=== PATIENT | female | born 1970 | race Caucasian/White ===

== ENCOUNTER 2018-08-17 18:11 | Emergency (ER) | payer OTHER ==
[2018-08-17 18:49] VITALS: TEMP 97.9; BMI 26.0
--- NOTE | 2018-08-17 19:34 | PDOC ---
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 Per the nursing computer analyst supervisor, it is unclear how it came out. Patient had normal vitals signs at [facility] (her living facility). Currently, the patient displays no symptomatic problems. Past History - Past Medical History Allergies/Adverse Reactions: Allergies Allergy/AdvReac Type Severity Reaction Status Date / Time clindamycin Allergy Mild Rash Verified 09/29/15 10:27 cherries Allergy Uncoded 09/19/15 21:58 Home Medications: Ambulatory Orders Acetaminophen [Feverall] 650 mg WI ASDIR PRN 01/11/15 Ascorbate Calcium [Vitamin C] 500 mg PO DAILY 01/11/15 Chlorhexidine Gluconate [Hibiclens For Decolonization -] 1 applic TP BID Collagenase Clostridium Hist. [Collagenase] 25,000 unit MC DAILY 01/11/15 Folic Acid/Mv,Fe,Min/Lutein [Certavite-Lutein Tablet] 1 each PEG DAILY 01/11/15 Hydrocolloid Dressing [Aquacel] 1 each TP DAILY 01/11/15 Mag Hydrox/Al Hydrox/Simeth [Antacid II-Simethicone Liq] 360 ml PEG QID Magnesium Hydrox 2400MG/30Ml [Milk Of Magnesia] 30 ml PEG DAILY 01/11/15 Silver Sulfadiaz/Foam Bandage [Allevyn Ag Dressing 4"X4"] 1 each TP DAILY Ipratropium/Albuterol Sulfate [Iprat-Albut 0.5-3(2.5) mg/3 ml] 1 unit IH Q6H PRN 01/12/15 Sennosides [Senna -] 3 tab GT BID 01/12/15 Ciprofloxacin [Cipro (Restricted To Id)] 500 mg PO BID 09/20/15 Albuterol 2.5/Ipratropium 0.5 [Duoneb -] 1 amp NEB TIDR amp 10/05/15 Amoxicillin/Potassium Clav [Augmentin 875-125 Tablet] 1 each PO BID #8 tablet Hydrocortisone 1% Cream [Hytone 1% Cream -] 1 applic TP BID tube 10/05/15 Oxygen See Protocol .ROUTE DAILY #1 10/05/15 Scopolamine Hydrobromide [Transderm-Scop -] 1 patch TD Q72H patch.td72 Cardiac Disorders: Yes (pacemaker) COPD: No CHF: No (s/p femoral artery resection) DVT: No Dementia: (SELF ABUSIVE BEHAVIOR) Diabetes: Yes (new-onset) Seizures: Yes (convulsive epilespy) - Surgical History Cardiac Surgery: Yes (femoral artery resection) Orthopedic Surgery: (left hip dislocation) - Immunization History Immunization Up to Date: Yes - Suicide/Smoking/Psychosocial Hx Smoking History: Never smoked Have you smoked in the past 12 months: No Information on smoking cessation initiated: No Hx Alcohol Use: No Drug/Substance Use Hx: No Substance Use Type: None Hx Substance Use Treatment: No *Physical Exam - Vital Signs Last Vital Signs Temp Pulse Resp BP Pulse Ox 97.9 F 92 H 18 125/82 95 08/17/18 18:11 08/17/18 18:11 08/17/18 18:11 08/17/18 18:11 08/17/18 18:11 Moderate Sedation - Procedure Monitoring Vital Signs: Procedure Monitoring Vital Signs Temperature 97.9 F 08/17/18 18:11 Pulse Rate 92 H 08/17/18 18:11 Respiratory Rate 18 08/17/18 18:11 Blood Pressure 125/82 08/17/18 18:11 O2 Sat by Pulse Oximetry (%) 95 08/17/18 18:11 *DC/Admit/Observation/Transfer Diagnosis at time of Disposition: Gastrostomy tube in place - Discharge Dispostion Disposition: HOME Decision to Admit order: No - Referrals - Patient Instructions Printed Discharge Instructions: DI for Gastrostomy: Permanent and Temporary Additional Instructions: you were seen in the emergency department for the evaluation of your g-tube placement. it was successfully placed and xray imaging confirmed dye was present in the stomach. please use g-tube care when handling the tube and have her follow up with her primary medical doctor within 48 hours after discharge. please return to the emergency department if it falls out, obstructed, or unable to tolerate. thank you. - Post Discharge Activity
--- NOTE | 2018-08-17 20:32 | PDOC ---
Attending Attestation - Resident Resident Name: Aryan Canales - ED Attending Attestation I have performed the following: I have examined & evaluated the patient, The case was reviewed & discussed with the resident, I agree w/resident's findings & plan - HPI HPI: 08/17/18 20:36 Zohrazak 47 YOF from [facility] with hx of MR, DM, self abusive d/o, quadriplegia, scoliosis, , left hip dislocation, convulsive epilepsy (not on AED ), infantile cerebral palsy, G tube dependent p/w G tube displacement this evening at 530pm. No abdominal sx, no emesis, no respiratory distress history presented from [facility]/aid at bedside. Allergies: Clindamycin, cherries Past surgical history: None reported. Social history: Resident at [facility]. - Physicial Exam PE: 08/17/18 20:36 PE as documented, contracted, NAD. Abdomen soft NT, stoma in RUQ intact, scar tissue palpated. Nonverbal. CUENCA x4. WWP. - Medical Decision Making 08/17/18 20:37 hpi as documented. VS wnll. no labs indicated. G tube 18 solomon islander replaced, no complications, flushed, patent. balloon inflated 10cc saline gastroview confirmed patency on AXR. abdomen soft, NTND. Pt to be discharged in stable condition back to [place]
[2018-08-17 22:58] VITALS: BP 117/89; PULSE 83
== END 2018-08-17 22:58 | disposition home or self-care (01) ==
LOC: JER 18:11
PROC: 0D20XUZ Change Feeding Device in Upper Intestinal Tract, External Approach (ICD-10-PCS; principal; 2018-08-17)
DX: Z43.1 Encounter for attention to gastrostomy (principal); G40.909 Epilepsy, unspecified, not intractable, without status epilepticus; F78 Other intellectual disabilities; G80.8 Other cerebral palsy; Z91.5 Personal history of self-harm; Z95.0 Presence of cardiac pacemaker; M41.80 Other forms of scoliosis, site unspecified
CPT/HCPCS: 74018-TC-FY; 99282-25

== ENCOUNTER 2019-09-24 20:18 | Inpatient (IN) | payer OTHER ==
--- NOTE | 2019-09-24 21:01 | PDOC ---
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 The senior living report states that the patient had an oxygen saturation of 90% on RA and they sent here here for an x-ray to make sure she does not have an infiltrate and a pneumonia. PCP: Miguel Devine PSH: CSF shunt, Hip sx, femoral resection Allergies: Clindamycin, cherries Social Hx: [facility] resident Past History - Past Medical History Allergies/Adverse Reactions: Allergies Allergy/AdvReac Type Severity Reaction Status Date / Time clindamycin Allergy Mild Rash Verified 09/29/15 10:27 cherries Allergy Uncoded 09/19/15 21:58 Home Medications: Ambulatory Orders Acetaminophen [Feverall] 650 mg CO ASDIR PRN 01/11/15 Ascorbate Calcium [Vitamin C] 500 mg PO DAILY 01/11/15 Chlorhexidine Gluconate [Hibiclens For Decolonization -] 1 applic TP BID Collagenase Clostridium Hist. [Collagenase] 25,000 unit MC DAILY 01/11/15 Folic Acid/Mv,Fe,Min/Lutein [Certavite-Lutein Tablet] 1 each PEG DAILY 01/11/15 Hydrocolloid Dressing [Aquacel] 1 each TP DAILY 01/11/15 Mag Hydrox/Al Hydrox/Simeth [Antacid II-Simethicone Liq] 360 ml PEG QID Magnesium Hydrox 2400MG/30Ml [Milk Of Magnesia] 30 ml PEG DAILY 01/11/15 Silver Sulfadiaz/Foam Bandage [Allevyn Ag Dressing 4"X4"] 1 each TP DAILY Ipratropium/Albuterol Sulfate [Iprat-Albut 0.5-3(2.5) mg/3 ml] 1 unit IH Q6H PRN 01/12/15 Sennosides [Senna -] 3 tab GT BID 01/12/15 Ciprofloxacin [Cipro (Restricted To Id)] 500 mg PO BID 09/20/15 Albuterol 2.5/Ipratropium 0.5 [Duoneb -] 1 amp NEB TIDR amp 10/05/15 Amoxicillin/Potassium Clav [Augmentin 875-125 Tablet] 1 each PO BID #8 tablet Hydrocortisone 1% Cream [Hytone 1% Cream -] 1 applic TP BID tube 10/05/15 Oxygen See Protocol .ROUTE DAILY #1 10/05/15 Scopolamine Hydrobromide [Transderm-Scop -] 1 patch TD Q72H patch.td72 Cardiac Disorders: Yes (pacemaker) COPD: No CHF: No (s/p femoral artery resection) DVT: No Dementia: (SELF ABUSIVE BEHAVIOR) Diabetes: Yes (new-onset) Seizures: Yes (convulsive epilespy) - Surgical History Cardiac Surgery: Yes (femoral artery resection) Orthopedic Surgery: (left hip dislocation) - Immunization History Immunization Up to Date: Yes - Psycho Social/Smoking Cessation Hx Smoking History: Never smoked Have you smoked in the past 12 months: No Hx Alcohol Use: No Drug/Substance Use Hx: No Substance Use Type: None Hx Substance Use Treatment: No Review of Systems - Review of Systems Able to Perform ROS?: No (Non-verbal) *Physical Exam - Physical Exam General Appearance: Yes: Appropriately Dressed, Mild Distress, Thin. No: Nourished HEENT: positive: DOMINGO, Normal ENT Inspection Neck: positive: Supple Respiratory/Chest: positive: Crackles (right lower lobe) Cardiovascular: positive: Tachycardia Vascular Pulses: Dorsalis-Pedis (R): 2+, Doralis-Pedis (L): 2+ Gastrointestinal/Abdominal: positive: Normal Bowel Sounds, Other (G-tube in place). negative: Distended, Guarding Musculoskeletal: positive: Decreased Range of Motion Extremity: positive: Normal Capillary Refill, Pelvis Stable. negative: Normal Range of Motion Integumentary: positive: Normal Color, Dry, Warm Neurologic: positive: Respond to painful stimul ED Treatment Course - LABORATORY CBC & Chemistry Diagram: 09/24/19 21:18 09/24/19 21:18 Medical Decision Making - Medical Decision Making Hx limited bc patient cannot provide any meaning ful hx. 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 The senior living report states that the patient had an oxygen saturation of 90% on RA and they sent here here for an x-ray to make sure she does not have an infiltrate and a pneumonia. Vital Signs Temp Pulse Resp BP Pulse Ox 99.6 F 110 H 26 H 112/86 100 09/24/19 20:18 09/24/19 20:18 09/24/19 20:18 09/24/19 20:18 09/24/19 20:18 DDx IBNLT: Sepsis, PNA, electrolyte/metabolic disturbance, failure to thrive MDM: Patient feels warmto touch, is tachycardic, has right sided crackles, is hypoxic to high 80's on room air, and is very prone to PNA Plan: Sepsis workup, cxr, likely abx and admit CXR: Right lower lobe infiltrate consistent with PNA possible aspiration - Vanc/Zosyn Dispo: Admit to hospital Discharge - Discharge Information Problems reviewed: Yes Clinical Impression/Diagnosis: Pneumonia Qualifiers: Pneumonia type: due to unspecified organism Laterality: right Lung location: lower lobe of lung Qualified Code(s): J18.9 - Pneumonia, unspecified organism Condition: Stable - Admission Yes - Follow up/Referral - Patient Discharge Instructions - Post Discharge Activity
[2019-09-24] MEDS ORDERED: SODIUM CHLORIDE 1,089 ML IV ONE (21:28)
[2019-09-24] MEDS ORDERED: ACETAMINOPHEN 650 MG/20.3 ML ORAL SOLUTION (CUPS) GT ONE (21:54)
--- NOTE | 2019-09-24 21:57 | PDOC ---
Documentation entered by Jeffrey Brizuela SCRIBE, acting as scribe for Julianna Borja DO. Julianna Borja DO: This documentation has been prepared by the Gelacio guerrero Elijah, SCRIBE, under my direction and personally reviewed by me in its entirety. I confirm that the documentation accurately reflects all work, treatment, procedures, and medical decision making performed by me. 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 via EMS with coughing. History limited given patient is non-verbal but as per [place] Report patient has a cough producing cream/villela sputum and had a fever of 101 degrees. Allergies: Clindamycin PCP: Dr. Devine. - Physicial Exam PE: 09/24/19 22:05 Constitutional: +Non-Verbal Head: Normocephalic. Atraumatic Eyes: PERRL. EOMI. Conjunctivae are not pale. ENT: Mucous membranes are moist and intact. Posterior pharynx without exudates or erythema. Uvula midline. Neck: Supple. Full ROM. No lymphadenopathy. Cardiovascular: Regular rate. Regular rhythm. S1, S2 regular. Distal pulses are 2+ and symmetric. Pulmonary/Chest: +Coarse Rhonchi and Breath sounds on the Right. Abdominal: Soft and non-distended. There is no tenderness. No rebound, guarding or rigidity. No organomegaly. No palpable masses. Good bowel sounds. Back: No CVA tenderness. Musculoskeletal: +Contracted Upper and Lower Extremities. Skin: +Warm to touch. No petechiae. No purpura. - Medical Decision Making 09/24/19 21:56 a/p: 48[address] female [facility] -pt sent for eval of a fever, congestion, coughing -pt with temp 101 earlier today -pt is nonverbal, contracted extremities -coughing- +barker/cream colored sputum -hot to touch -will send labs, cultures, flu -will obtain ua -will suction mouth -xray -will most likely need admission 09/24/19 22:36 pt with R sided pna -will start abx cultures pending will need admission 09/24/19 22:56 flu neg lactate 2.2 elevated wbc pna, abx ordered pt will need admission 09/24/19 23:24 case discussed with lynette who accepts pt to service
[2019-09-24 22:21] LABS: VENOUS PC02 59.2 mmHg (38-52); VENOUS PH 7.37 (7.31-7.41)
[2019-09-24 22:23] LABS: BASO % 0.3 % (0-2.0); EOS % 0.1 % (0-4.5); HEMATOCRIT 45.4 % (32.4-45.2); HEMOGLOBIN 15.7 GM/dL (10.7-15.3); LYMPH % 6.5 % (8-40); MCH 31.5 pg (25.7-33.7); MCHC 34.6 g/dl (32.0-36.0); MEAN PLT VOLUME 8.7 fl (7.5-11.1); MONO % 7.7 % (3.8-10.2); NEUT % 85.4 % (42.8-82.8); PLATELET COUNT 309 K/MM3 (134-434); RBC 4.99 M/mm3 (3.60-5.2); RDW 12.6 % (11.6-15.6)
[2019-09-24 22:26] LABS: VENOUS PO2 < 49 mmHg (28-48)
[2019-09-24 22:37] LABS: INR 1.13 (0.83-1.09); PROTHROMBIN TIME (PATIENT) 13.4 SEC (9.7-13.0)
[2019-09-24 22:39] LABS: ACTIVATED PTT 37.6 SECONDS (25.2-36.5)
[2019-09-24] MEDS ORDERED: VANCOMYCIN 1,000 MG in DEXTROSE 5%-WATER - 250 ML IVPB ONE (22:42)
[2019-09-24] MEDS ORDERED: PIPERACILLIN/TAZOB 4.5 GM 4.5 GM in DEXTROSE 5%-WATER 100 ML IVPB ONE (22:42)
[2019-09-24] MEDS ORDERED: PIPERACILLIN/TAZOB 4.5 GM 4.5 GM/100 ML BAG IVPB ONE (22:47)
[2019-09-24] MEDS ORDERED: VANCOMYCIN 1 GRAM (PRE-DOCKED) 1,000 MG/250 ML BAG IVPB ONE (22:47)
[2019-09-24 22:54] LABS: ALBUMIN 3.9 g/dl (3.4-5.0); BILIRUBIN,TOTAL 0.4 mg/dL (0.2-1); BLOOD UREA NITROGEN 14.4 mg/dL (7-18); CALCIUM 9.2 mg/dL (8.5-10.1); CREATININE 0.4 mg/dL (0.55-1.3); POTASSIUM 4.6 mmol/L (3.5-5.1); TOT PROT 7.6 g/dl (6.4-8.2)
[2019-09-24 23:31] LABS: HYALINE CASTS 2 /lpf (0-8); URINE APPEARANCE CLEAR; URINE BACTERIA 90.8 /hpf (NEGATIVE); URINE BILIRUBIN NEGATIVE (NEGATIVE); URINE COLOR YELLOW; URINE GLUCOSE (UA) TRACE (NEGATIVE); URINE KETONE NEGATIVE (NEGATIVE); URINE LEUK ESTERASE 1+ (NEGATIVE); URINE NITRITE NEGATIVE (NEGATIVE); URINE PROTEIN NEGATIVE (NEGATIVE); URINE RBC 3 /hpf (0-4); URINE UROBILINOGEN 0.2 mg/dL (0.2-1.0); URINE WBC 10 /hpf (0-5)
[2019-09-25] MEDS ORDERED: SODIUM CHLORIDE 1,000 ML IV SCH (00:30)
[2019-09-25] MEDS: SCOPOLAMINE HYDROBROMIDE 1 PATCH PATCH.TD72 TD SCH (02:08)
--- NOTE | 2019-09-25 02:58 | HP ---
CHIEF COMPLAINT: sent from [facility] due to fever, cough, and crackles PCP: Dr. Devine HISTORY OF PRESENT ILLNESS: Danna Reyes is a 48 year old female with a past medical history of MR, cerebral palsy, hydrocephalus, quadriplegia, self-abuse, severe scoliosis, DM, pacemaker placement, CHF, convulvise epilepsy (not on AE and has not had seizure in many years) presenting from [facility] for temperature registered at 101, noted crackles in her RLL, and cough. Patient was noted to have a O2 sat at 90% on RA at the facility. Aide at the bedside stated that the symptoms has a 1-2 day duration and before the patient was in her usual state of health. Additionally, the aide noted that there is a chronic sacral ulcer. ER course was notable for: (1) HR 110, RR 26 (2) WBC 13.0 with left shift, Na 129, lactic acid 2.2, VBG 7.37, CO2 59.2, HCO3 33.7 (3) CXR questionable for patchy consolidation in the R lung Recent Travel: none as per aide PAST MEDICAL HISTORY: as above PAST SURGICAL HISTORY: CSF shunt, hip fx and repair, femoral resection, pacemaker Social History: Lives at [facility]. Allergies clindamycin Allergy (Mild, Verified 09/29/15 10:27) Rash ERYTHEMA cherries Allergy (Uncoded 09/19/15 21:58) HOME MEDICATIONS: Home Medications Medication Instructions Recorded Acetaminophen [Feverall] 650 mg CA ASDIR PRN 01/11/15 Ascorbate Calcium [Vitamin C] 500 mg PO DAILY 01/11/15 Chlorhexidine Gluconate [Hibiclens 1 applic TP BID 01/11/15 For Decolonization -] Collagenase Clostridium Hist. 25,000 unit MC DAILY 01/11/15 [Collagenase] Folic Acid/Mv,Fe,Min/Lutein 1 each PEG DAILY 01/11/15 [Certavite-Lutein Tablet] Hydrocolloid Dressing [Aquacel] 1 each TP DAILY 01/11/15 Mag Hydrox/Al Hydrox/Simeth 360 ml PEG QID 01/11/15 [Antacid II-Simethicone Liq] Magnesium Hydrox 2400MG/30Ml [Milk 30 ml PEG DAILY 01/11/15 Of Magnesia] Silver Sulfadiaz/Foam Bandage 1 each TP DAILY 05/25/15 [Allevyn Ag Dressing 4"X4"] Ipratropium/Albuterol Sulfate 1 unit IH Q6H PRN 01/12/15 [Iprat-Albut 0.5-3(2.5) mg/3 ml] Sennosides [Senna -] 3 tab GT BID 01/12/15 Ciprofloxacin [Cipro (Restricted 500 mg PO BID 09/20/15 To Id)] Albuterol 2.5/Ipratropium 0.5 1 amp NEB TIDR amp 10/05/15 [Duoneb -] Amoxicillin/Potassium Clav 1 each PO BID #8 tablet 10/05/15 [Augmentin 875-125 Tablet] Hydrocortisone 1% Cream [Hytone 1% 1 applic TP BID tube 10/05/15 Cream -] Scopolamine Hydrobromide 1 patch TD Q72H patch.td72 10/05/15 [Transderm-Scop -] Multivit-Minerals 15 ml PO HS 09/25/19 [Certavite-Antioxidant Liquid] Oxygen See Protocol .ROUTE DAILY 09/25/19 Potassium Citrate/Citric Acid 1 each PO HS 09/25/19 [Cytra-K Crystals Packet] Protein Supplement [Promod] 946 ml GT DAILY 09/25/19 REVIEW OF SYSTEMS Unable to provide ROS due to non-verbal condition. PHYSICAL EXAMINATION Vital Signs - 24 hr 09/24/19 20:18 Temperature 99.6 F Pulse Rate 110 H Respiratory 26 H Rate Blood Pressure 112/86 O2 Sat by Pulse 100 Oximetry (%) GENERAL: Awake, not alert and not oriented. Small in stature. HEAD: Macrocephalic with no acute trauma. EYES: Pupils equal, round and sluggish reaction to light. EARS, NOSE, THROAT: Dry mucous membranes. LUNGS: Poorly auscultated breath sounds, coarse. HEART: Regular rate and rhythm, normal S1 and S2. ABDOMEN: Soft, nontender, not distended, normoactive bowel sounds, no guarding, no rebound, no masses. MUSCULOSKELETAL: Contracted extremities throughout. UPPER EXTREMITIES: Contracted. 2+ pulses. LOWER EXTREMITIES: Contacted. 2+ pulses NEUROLOGICAL: Minimal to no response to painful stimuli. SKIN: Cool, dry, Stage 2 sacral wound, minimal erythema., non-draining. Laboratory Results - last 24 hr 02/05/20 02/05/20 02/05/20 21:18 21:18 21:18 WBC 13.0 H RBC 4.99 Hgb 15.7 H Hct 45.4 H MCV 91.0 MCH 31.5 MCHC 34.6 RDW 12.6 Plt Count 309 D MPV 8.7 Absolute Neuts (auto) 11.1 H Neutrophils % 85.4 H D Lymphocytes % 6.5 L D Monocytes % 7.7 Eosinophils % 0.1 D Basophils % 0.3 Nucleated RBC % 0 PT with INR 13.40 H INR 1.13 H PTT (Actin FS) 37.6 H VBG pH POC VBG pCO2 POC VBG pO2 VBG HCO3 VBG O2 Sat (Christain) VBG Base Excess Sodium 129 L Potassium 4.6 Chloride 91 L Carbon Dioxide 32 Anion Gap 6 L BUN 14.4 Creatinine 0.4 L Est GFR (CKD-EPI)AfAm 143.76 Est GFR (CKD-EPI)NonAf 124.03 Random Glucose 152 H Lactic Acid Calcium 9.2 Total Bilirubin 0.4 AST 11 L ALT 19 Alkaline Phosphatase 115 Troponin I Total Protein 7.6 Albumin 3.9 Urine Color Urine Appearance Urine pH Ur Specific [place] Urine Protein Urine Glucose (UA) Urine Ketones Urine Blood Urine Nitrite Urine Bilirubin Urine Urobilinogen Ur Leukocyte Esterase Urine WBC (Auto) Urine RBC (Auto) Urine Casts (Auto) U Epithel Cells (Auto) Urine Bacteria (Auto) Influenza A (Rapid) Influenza B (Rapid) 09/24/19 09/24/19 09/24/19 21:18 21:18 21:18 WBC RBC Hgb Hct MCV MCH MCHC RDW Plt Count MPV Absolute Neuts (auto) Neutrophils % Lymphocytes % Monocytes % Eosinophils % Basophils % Nucleated RBC % PT with INR INR PTT (Actin FS) VBG pH 7.37 POC VBG pCO2 59.2 H POC VBG pO2 < 49 H VBG HCO3 33.7 H VBG O2 Sat (Christian) 74.8 VBG Base Excess 6.6 H Sodium Potassium Chloride Carbon Dioxide Anion Gap BUN Creatinine Est GFR (CKD-EPI)AfAm Est GFR (CKD-EPI)NonAf Random Glucose Lactic Acid Calcium Total Bilirubin AST ALT Alkaline Phosphatase Troponin I < 0.02 Total Protein Albumin Urine Color Urine Appearance Urine pH Ur Specific [place] Urine Protein Urine Glucose (UA) Urine Ketones Urine Blood Urine Nitrite Urine Bilirubin Urine Urobilinogen Ur Leukocyte Esterase Urine WBC (Auto) Urine RBC (Auto) Urine Casts (Auto) U Epithel Cells (Auto) Urine Bacteria (Auto) Influenza A (Rapid) Negative Influenza B (Rapid) Negative 09/24/19 09/24/19 21:39 23:10 WBC RBC Hgb Hct MCV MCH MCHC RDW Plt Count MPV Absolute Neuts (auto) Neutrophils % Lymphocytes % Monocytes % Eosinophils % Basophils % Nucleated RBC % PT with INR INR PTT (Actin FS) VBG pH POC VBG pCO2 POC VBG pO2 VBG HCO3 VBG O2 Sat (Christian) VBG Base Excess Sodium Potassium Chloride Carbon Dioxide Anion Gap BUN Creatinine Est GFR (CKD-EPI)AfAm Est GFR (CKD-EPI)NonAf Random Glucose Lactic Acid 2.2 H* Calcium Total Bilirubin AST ALT Alkaline Phosphatase Troponin I Total Protein Albumin Urine Color Yellow Urine Appearance Clear Urine pH 8.0 Ur Specific [place] 1.012 Urine Protein Negative Urine Glucose (UA) Trace Urine Ketones Negative Urine Blood Negative Urine Nitrite Negative Urine Bilirubin Negative Urine Urobilinogen 0.2 Ur Leukocyte Esterase 1+ H Urine WBC (Auto) 10 Urine RBC (Auto) 3 Urine Casts (Auto) 2 U Epithel Cells (Auto) 2.0 Urine Bacteria (Auto) 90.8 Influenza A (Rapid) Influenza B (Rapid) EKG--> NSR, no ST segment changes, QTc 480 ASSESSMENT/PLAN: Danna Reyes is a 48 year old female with a past medical history of MR, cerebral palsy, hydrocephalus, quadriplegia, self-abuse, severe scoliosis, DM, pacemaker placement, CHF, convulvise epilepsy admitted for sepsis secondary to PNA. Sepsis secondary to PNA - CXR as above, has chronic history of PNA - WBC 13.0, HR 110, RR26 - Flu negative - Zosyn due to suspicion of possible aspiration PNA and healthcare associated PNA - lactic 2.2, continue to monitor - sputum culture - urine legionella/strep - blood cx pending - UA with minimal criteria for UTI, Ucx pending - dysphagia precautions, elevated HOB DM - BGM - ISS - A1c Sacral Wound - wound care consulted - local wound care - turning q2h Hyponatremia - likely in setting of elevated free water in tube feeds vs SIADH - serum osms/urine osms, CRE, lytes - dietary eval for adjustment of water flushes and free water in feeds, hold feeds temporarily - NS at 50cc/hr, continue to monitor and adjust as necessary - do not overcorrect by greater than 8-10MeQ/24 hours - consider nephrology consult DVT PPx - heparin 5000 units subq tid FEN - NS at 50cc/hr - continue to monitor electrolytes and replete as necessary - hold tube feedings in setting of risk of aspiration PNA and hyponatremia, normally on Jevity 1.5 420mL@40cc/hr x 3.5hrs @8AM,4PM,12AM with 3mL/hr water flush and 35mL water after each feed Dispo - admit to Med-surg Family Medical History Family History: Unable to Obtain Visit type - Emergency Visit Emergency Visit: Yes ED Registration Date: 09/24/19 Care time: The patient presented to the Emergency Department on the above date and was hospitalized for further evaluation of their emergent condition. - New Patient This patient is new to me today: Yes Date on this admission: 09/25/19 - Critical Care Critical Care patient: No
--- NOTE | 2019-09-25 05:56 | PN ---
Teaching Attending Note Name of Resident: Rasta Wnog ATTENDING PHYSICIAN STATEMENT I saw and evaluated the patient. I reviewed the resident's note and discussed the case with the resident. I agree with the resident's findings and plan as documented. 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 Suspected to possibly have aspirated.Patient was brought in by ambulance.Given Zosyn and vancomycin in the emergency room. OBJECTIVE: Last Vital Signs Temp Pulse Resp BP Pulse Ox 97.5 F L 72 20 107/75 100 09/25/19 03:37 09/25/19 03:37 09/25/19 03:37 09/25/19 03:37 09/25/19 03:37 GENERAL: Developmental delay HEENT: Normocephalic, atraumatic. PERRLA, EOMI. No conjunctival pallor. Sclera are non- icteric. Moist mucous membranes. Oropharynx is clear. NECK: Supple. Full ROM. No JVD. Carotid pulses 2+ and symmetric, without bruits. No thyromegaly. No lymphadenopathy. CARDIOVASCULAR: Regular rate and rhythm. No murmurs, rubs, or gallops. Distal pulses are 2+ and symmetric. PULMONARY: Bilateral breath sounds, coarse breath sounds bilaterally ABDOMINAL: Soft. Non-tender. Non-distended. No rebound or guarding. No organomegaly. Normoactive bowel sounds. MUSCULOSKELETAL Normal range of motion at all joints. No bony deformities or tenderness. No CVA tenderness. EXTREMITIES: No cyanosis. No clubbing. No edema. No calf tenderness. SKIN: Warm and dry. Normal capillary refill. No rashes. No jaundice. Mild sacral ulcer reported NEUROLOGICAL: Severe mental retardation, developmental delay PSYCHIATRIC: Uncooperative Abnormal Lab Results 09/24/19 09/24/19 09/24/19 21:18 21:18 21:18 WBC 13.0 H Hgb 15.7 H Hct 45.4 H Absolute Neuts (auto) 11.1 H Neutrophils % 85.4 H D Lymphocytes % 6.5 L D PT with INR 13.40 H INR 1.13 H PTT (Actin FS) 37.6 H POC VBG pCO2 POC VBG pO2 VBG HCO3 VBG Base Excess Sodium 129 L Chloride 91 L Anion Gap 6 L Creatinine 0.4 L Random Glucose 152 H Lactic Acid AST 11 L Ur Leukocyte Esterase Ur Random Creatinine Ur Random Chloride 09/24/19 09/24/19 09/24/19 21:18 21:39 23:10 WBC Hgb Hct Absolute Neuts (auto) Neutrophils % Lymphocytes % PT with INR INR PTT (Actin FS) POC VBG pCO2 59.2 H POC VBG pO2 < 49 H VBG HCO3 33.7 H VBG Base Excess 6.6 H Sodium Chloride Anion Gap Creatinine Random Glucose Lactic Acid 2.2 H* AST Ur Leukocyte Esterase 1+ H Ur Random Creatinine Ur Random Chloride 09/25/19 09/25/19 01:04 01:04 WBC Hgb Hct Absolute Neuts (auto) Neutrophils % Lymphocytes % PT with INR INR PTT (Actin FS) POC VBG pCO2 POC VBG pO2 VBG HCO3 VBG Base Excess Sodium Chloride Anion Gap Creatinine Random Glucose Lactic Acid AST Ur Leukocyte Esterase Ur Random Creatinine < 13.0 L Ur Random Chloride 57 L Imaging studies reviewedchest x-ray with a very poor quality film ASSESSMENT AND PLAN: 48-year-old woman, developmentally delayed with acute hypoxic respiratory failure suspected to be secondary to aspiration pneumonia versus community- acquired pneumonia.Appears to be septic, likely secondary to underlying pneumonia. Leukocytosis, lactic acidosis. Elevated hemoglobin suggest hemoconcentration, possibly fluid depleted. Suspect hyponatremia may be secondary to underlying pneumonia, likely SIADH. [facility] Continue with Zosyn 3.375 every 6 hours Supplemental oxygen via nasal cannula Keep n.p.o. at this time Hold tube feedings Infectious disease consultation IV fluid hydration Blood cultures pending Dietary consult for tube feeding reevaluation Urine lites, serum osmoles, urine osmoles for hyponatremia work-up Heparin subcutaneously for DVT prophylaxis
[2019-09-25] MEDS ORDERED: HEPARIN NA (PORCINE) 5,000 UNITS/ML 1ML VIAL ONE ×2 (05:57→14:14)
[2019-09-25] MEDS ORDERED: PIPERACILLIN/TAZOB 4.5 GM 4.5 GM/100 ML BAG IVPB ONE ×2 (05:57→15:02)
[2019-09-25] MEDS: HEPARIN NA (PORCINE) 5,000 UNITS/ML 1ML VIAL SQ SCH ×3 (06:22→23:00)
[2019-09-25] MEDS: PIPERACILLIN/TAZOB 4.5 GM 4.5 GM in DEXTROSE 5%-WATER 100 ML IVPB SCH ×3 (06:22→15:08)
[2019-09-25 06:48] LABS: BASO % 0.9 % (0-2.0); EOS % 2.2 % (0-4.5); HEMATOCRIT 41.4 % (32.4-45.2); HEMOGLOBIN 14.3 GM/dL (10.7-15.3); LYMPH % 26.8 % (8-40); MCH 31.9 pg (25.7-33.7); MCHC 34.5 g/dl (32.0-36.0); MEAN CELL VOLUME 92.3 fl (80-96); MEAN PLT VOLUME 8.1 fl (7.5-11.1); MONO % 12.4 % (3.8-10.2); NEUT % 57.7 % (42.8-82.8); PLATELET COUNT 240 K/MM3 (134-434); RBC 4.48 M/mm3 (3.60-5.2); RDW 12.5 % (11.6-15.6); WHITE BLOOD COUNT 5.9 K/mm3 (4.0-10.0)
[2019-09-25] MEDS: INSULIN SLIDING SCALE (NOVOLOG) 1 VIAL SQ SCH ×4 (07:44→23:04)
[2019-09-25 08:00] LABS: BLOOD UREA NITROGEN 6.7 mg/dL (7-18); CREATININE 0.3 mg/dL (0.55-1.3); MAGNESIUM 1.9 mg/dL (1.8-2.4); POTASSIUM 4.2 mmol/L (3.5-5.1)
[2019-09-25] MEDS ORDERED: PROTEIN SUPPLEMENT GT SCH (10:00)
[2019-09-25] MEDS ORDERED: SENNOSIDES 8.6MG TABLET (FP) PO SCH (10:00)
--- NOTE | 2019-09-25 12:34 | PN ---
Physical Exam: SUBJECTIVE: Patient seen and examined. nonverbal, afebrile, vs stable OBJECTIVE: Vital Signs Period Temp Pulse Resp BP Sys/Kent Pulse Ox Last 24 Hr 97.5 F-99.6 F 60-110 18-26 107-137/75-91 95-100 GENERAL: awake HEAD: Macrocephalic EYES: Pupils equal, round and sluggish reaction to light. EARS, NOSE, THROAT: Dry mucous membranes. LUNGS: decreased breath sounds, course HEART: Regular rate and rhythm, normal S1 and S2. ABDOMEN: soft, no grimacing to palpation MUSCULOSKELETAL: Contracted extremities throughout. LOWER EXTREMITIES: Contacted. 2+ pulses NEUROLOGICAL: Minimal to no response to painful stimuli. SKIN: Cool, dry, minimal erythema., non-draining. Stage 2 sacral decubitus Laboratory Results - last 24 hr 09/25/19 09/25/19 09/25/19 01:04 01:04 06:20 WBC 5.9 RBC 4.48 Hgb 14.3 Hct 41.4 MCV 92.3 MCH 31.9 MCHC 34.5 RDW 12.5 Plt Count 240 D MPV 8.1 Absolute Neuts (auto) 3.4 Neutrophils % 57.7 D Lymphocytes % 26.8 D Monocytes % 12.4 H Eosinophils % 2.2 D Basophils % 0.9 Nucleated RBC % 0 PT with INR INR PTT (Actin FS) Anticoagulation Therapy Puncture Site Patient Temperature ABG pH ABG pCO2 at Pt Temp ABG pO2 at Pt Temp ABG HCO3 ABG O2 Sat (Measured) ABG O2 Content ABG Base Excess Antonio Test VBG pH POC VBG pCO2 POC VBG pO2 VBG HCO3 VBG O2 Sat (Christian) VBG Base Excess O2 Delivery Device Oxygen Flow Rate Vent Mode Vent Rate Mechanical Rate PEEP Pressure Support Vent Sodium Potassium Chloride Carbon Dioxide Anion Gap BUN Creatinine Est GFR (CKD-EPI)AfAm Est GFR (CKD-EPI)NonAf POC Glucometer Random Glucose Hemoglobin A1c % Serum Osmolality Lactic Acid Calcium Phosphorus Magnesium Total Bilirubin AST ALT Alkaline Phosphatase Troponin I Total Protein Albumin Urine Color Urine Appearance Urine pH Ur Specific [place] Urine Protein Urine Glucose (UA) Urine Ketones Urine Blood Urine Nitrite Urine Bilirubin Urine Urobilinogen Ur Leukocyte Esterase Urine WBC (Auto) Urine RBC (Auto) Urine Casts (Auto) U Epithel Cells (Auto) Urine Bacteria (Auto) Urine Osmolality 332 Ur Random Creatinine Ur Random Sodium 41 Ur Random Potassium 49.0 Ur Random Chloride 57 L Influenza A (Rapid) Influenza B (Rapid) 09/25/19 09/25/19 09/25/19 06:20 06:20 07:36 WBC RBC Hgb Hct MCV MCH MCHC RDW Plt Count MPV Absolute Neuts (auto) Neutrophils % Lymphocytes % Monocytes % Eosinophils % Basophils % Nucleated RBC % PT with INR INR PTT (Actin FS) Anticoagulation Therapy Puncture Site Patient Temperature ABG pH ABG pCO2 at Pt Temp ABG pO2 at Pt Temp ABG HCO3 ABG O2 Sat (Measured) ABG O2 Content ABG Base Excess Antonio Test VBG pH POC VBG pCO2 POC VBG pO2 VBG HCO3 VBG O2 Sat (Christian) VBG Base Excess O2 Delivery Device Oxygen Flow Rate Vent Mode Vent Rate Mechanical Rate PEEP Pressure Support Vent Sodium 135 L Potassium 4.2 Chloride 101 Carbon Dioxide 30 Anion Gap 4 L BUN 6.7 L Creatinine 0.3 L Est GFR (CKD-EPI)AfAm 158.03 Est GFR (CKD-EPI)NonAf 136.35 POC Glucometer 89 Random Glucose 89 Hemoglobin A1c % 4.9 Serum Osmolality Lactic Acid Calcium 8.0 L Phosphorus 3.0 Magnesium 1.9 Total Bilirubin AST ALT Alkaline Phosphatase Troponin I Total Protein Albumin Urine Color Urine Appearance Urine pH Ur Specific [place] Urine Protein Urine Glucose (UA) Urine Ketones Urine Blood Urine Nitrite Urine Bilirubin Urine Urobilinogen Ur Leukocyte Esterase Urine WBC (Auto) Urine RBC (Auto) Urine Casts (Auto) U Epithel Cells (Auto) Urine Bacteria (Auto) Urine Osmolality Ur Random Creatinine Ur Random Sodium Ur Random Potassium Ur Random Chloride Influenza A (Rapid) Influenza B (Rapid) Active Medications Generic Name Dose Route Start Last Admin Trade Name Freq PRN Reason Stop Dose Admin Heparin Sodium (Porcine) 5,000 unit 09/25/19 06:00 09/25/19 06:22 Heparin - SQ 5,000 unit TID DAQUAN Administration Sodium Chloride 1,000 mls @ 50 mls/hr 09/25/19 00:30 09/25/19 02:01 Normal Saline - IV 09/26/19 00:24 50 mls/hr ASDIR DAQUAN Administration Piperacillin Sod/Tazobactam 100 mls @ 200 mls/hr 09/25/19 05:00 09/25/19 09: 28 Sod 4.5 gm/ Dextrose IVPB 09/25/19 15:29 200 mls/hr Q6H-IV DAQUAN Administration Protocol Piperacillin Sod/Tazobactam 100 mls @ 200 mls/hr 09/25/19 21:00 Sod 4.5 gm/ Dextrose IVPB Q6H-IV DAQUAN Protocol Insulin Aspart 1 vial 09/25/19 07:00 09/25/19 11:27 Novolog Vial Sliding Scale - SQ Not Given ACHS DAQUAN Protocol Multivitamins/Minerals 15 ml 09/25/19 22:00 Certavite-Antioxidant Liquid PO HS DAQUAN Scopolamine HBr 1 patch 09/25/19 01:45 09/25/19 02:08 Transderm-Scop - TD 1 patch Q72H DAQUAN Administration Senna 8.8 mg 09/25/19 22:00 Senna Oral Solution - GT HS DAQUAN ASSESSMENT/PLAN: Danna Reyes is a 48 year old female with a past medical history of MR, cerebral palsy, hydrocephalus, quadriplegia, self-abuse, severe scoliosis, DM, pacemaker placement, CHF, convulvise epilepsy admitted for sepsis secondary to PNA. #Sepsis secondary to PNA -CXR questionable for patchy consolidation in the R lung -patient with chronic history of PNA -Flu negative -IV abx: Zosyn. FU Id reccs -repeat lactic acid normal -sputum culture -urine legionella/strep -blood cx pending -fu ucx -dysphagia precautions, elevated HOB #DM - BGM - ISS - A1c #Sacral Decubitus Stage 2 - wound care consulted - local wound care - turning q2h #Hyponatremia - resolving, likely in setting of elevated free water in tube feeds vs SIADH - dietary eval for adjustment of water flushes and free water in feeds, hold feeds temporarily - NS at 50cc/hr, continue to monitor and adjust as necessary #DVT PPx - heparin 5000 units subq tid FEN - NS at 50cc/hr - continue to monitor electrolytes and replete as necessary - tube feeds held. normally on Jevity 1.5 420mL@40cc/hr x 3.5hrs @8AM,4PM,12AM with 3mL/hr water flush and 35mL water after each feed Visit type - Emergency Visit Emergency Visit: Yes ED Registration Date: 09/24/19 Care time: The patient presented to the Emergency Department on the above date and was hospitalized for further evaluation of their emergent condition. - New Patient This patient is new to me today: Yes Date on this admission: 09/25/19 - Critical Care Critical Care patient: No ATTENDING PHYSICIAN STATEMENT I saw and evaluated the patient. I reviewed the resident's note and discussed the case with the resident. I agree with the resident's findings and plan as documented. SUBJECTIVE: OBJECTIVE: ASSESSMENT AND PLAN:
--- NOTE | 2019-09-25 14:12 | CONSULT ---
- Consultation REQUESTING PROVIDER: CONSULT REQUEST: We have been asked to surgically evaluate this patient for Decubitus ulcer PCP:Nikki Castaneda HISTORY OF PRESENT ILLNESS: 48 year old female with a past medical history of MR, cerebral palsy, hydrocephalus, quadriplegia, self-abuse, severe scoliosis, DM, pacemaker placement, CHF, convulvise epilepsy (not on AE and has not had seizure in many years) presenting from [facility] for temperature registered at 101. Pt is nonverbal and unable to give any history. Home Medications Medication Instructions Recorded Acetaminophen [Feverall] 650 mg MO ASDIR PRN 01/11/15 Ascorbate Calcium [Vitamin C] 500 mg PO DAILY 01/11/15 Collagenase Clostridium Hist. 25,000 unit MC DAILY 01/11/15 [Collagenase] Folic Acid/Mv,Fe,Min/Lutein 1 each PEG DAILY 01/11/15 [Certavite-Lutein Tablet] Hydrocolloid Dressing [Aquacel] 1 each TP DAILY 01/11/15 Mag Hydrox/Al Hydrox/Simeth 360 ml PEG QID 01/11/15 [Antacid II-Simethicone Liq] Magnesium Hydrox 2400MG/30Ml [Milk 30 ml PEG DAILY 01/11/15 Of Magnesia] Silver Sulfadiaz/Foam Bandage 1 each TP DAILY 01/11/15 [Allevyn Ag Dressing 4"X4"] Ipratropium/Albuterol Sulfate 1 unit IH PRN PRN 01/12/15 [Iprat-Albut 0.5-3(2.5) mg/3 ml] Sennosides [Senna -] 3 tab GT BID 01/12/15 Hydrocortisone 1% Cream [Hytone 1% 1 applic TP BID tube 10/05/15 Cream -] Scopolamine Hydrobromide 1 patch TD Q72H patch.td72 10/05/15 [Transderm-Scop -] Multivit-Minerals 15 ml PO HS 09/25/19 [Certavite-Antioxidant Liquid] Oxygen See Protocol .ROUTE DAILY 09/25/19 Potassium Citrate/Citric Acid 1 each PO HS 09/25/19 [Cytra-K Crystals Packet] Protein Supplement [Promod] 946 ml GT DAILY 09/25/19 Allergies Allergy/AdvReac Type Severity Reaction Status Date / Time clindamycin Allergy Mild Rash Verified 09/29/15 10:27 cherries Allergy Uncoded 09/19/15 21:58 PHYSICAL EXAM: GENERAL: Awake, not alert and not oriented. Small in stature. HEAD: Macrocephalic with no acute trauma. EYES: Pupils equal, round and sluggish reaction to light. EARS, NOSE, THROAT: Dry mucous membranes. ABDOMEN: Soft, nontender, not distended, normoactive bowel sounds, no guarding, no rebound, no masses. MUSCULOSKELETAL: Contracted extremities throughout. UPPER EXTREMITIES: Contracted. LOWER EXTREMITIES: Contacted. NEUROLOGICAL: Minimal to no response to painful stimuli. SKIN: Cool, dry, Stage 1 sacral wound, minimal erythema Vital Signs Temperature 97.5 F L 09/25/19 03:37 Pulse Rate 60 09/25/19 07:30 Respiratory Rate 18 09/25/19 07:30 Blood Pressure 130/81 09/25/19 07:30 O2 Sat by Pulse Oximetry (%) 95 09/25/19 07:30 Lab Results WBC 5.9 K/mm3 (4.0-10.0) 09/25/19 06:20 RBC 4.48 M/mm3 (3.60-5.2) 09/25/19 06:20 Hgb 14.3 GM/dL (10.7-15.3) 09/25/19 06:20 Hct 41.4 % (32.4-45.2) 09/25/19 06:20 MCV 92.3 fl (80-96) 09/25/19 06:20 MCHC 34.5 g/dl (32.0-36.0) 09/25/19 06:20 RDW 12.5 % (11.6-15.6) 09/25/19 06:20 Plt Count 240 K/MM3 (134-434) D 09/25/19 06:20 Sodium 135 mmol/L (136-145) L 09/25/19 06:20 Potassium 4.2 mmol/L (3.5-5.1) 09/25/19 06:20 Chloride 101 mmol/L (98-107) 09/25/19 06:20 Carbon Dioxide 30 mmol/L (21-32) 09/25/19 06:20 Anion Gap 4 MMOL/L (8-16) L 09/25/19 06:20 BUN 6.7 mg/dL (7-18) L 09/25/19 06:20 Creatinine 0.3 mg/dL (0.55-1.3) L 09/25/19 06:20 Random Glucose 89 mg/dL (74-106) 09/25/19 06:20 Calcium 8.0 mg/dL (8.5-10.1) L 09/25/19 06:20 INR 1.13 (0.83-1.09) H 09/24/19 21:18 Problem List - Problems (1) Decubital ulcer Assessment/Plan: Plan Sacral Ulcer/DTI Plan -Reposition every two hours while in bed -Air mattress recommended -Use drawsheets and Trendelenburg when repositioning to reduce friction and shear -Manageincontinence via timely cleansing, use of appropriate incontinence disposables and use of barrier ointment to intact skin -Ensure adequate hydration/nutrition, supplementation per primary team -Ensure off-loading to all bony areas (heels, ankles, hips and tailbone) with Allevyn/Optifoam Code(s): L89.90 - PRESSURE ULCER OF UNSPECIFIED SITE, UNSPECIFIED STAGE Qualifiers: Pressure injury location: contiguous region involving back and buttock Pressure injury stage: stage 1 Laterality: unspecified laterality Qualified Code(s): L89.41 - Pressure ulcer of contiguous site of back, buttock and hip, stage 1
--- NOTE | 2019-09-25 14:27 | EKG ---
Test Reason : Blood Pressure : / mmHG Vent. Rate : 085 BPM Atrial Rate : 085 BPM P-R Int : 154 ms QRS Dur : 064 ms QT Int : 404 ms P-R-T Axes : 058 050 058 degrees QTc Int : 480 ms NORMAL SINUS RHYTHM PROLONGED QT ABNORMAL ECG WHEN COMPARED WITH ECG OF 11-JAN-2015 16:29, VENT. RATE HAS DECREASED BY 52 BPM NON-SPECIFIC CHANGE IN ST SEGMENT IN INFERIOR LEADS NON-SPECIFIC CHANGE IN ST SEGMENT IN ANTEROLATERAL LEADS NONSPECIFIC T WAVE ABNORMALITY NO LONGER EVIDENT IN INFERIOR LEADS NONSPECIFIC T WAVE ABNORMALITY NO LONGER EVIDENT IN ANTEROLATERAL LEADS Confirmed by ZACK SAUCEDO MD ([id number]) on 09/25/2019 2:26:51 PM Referred By: Confirmed By:ZACK SAUCEDO MD
--- NOTE | 2019-09-25 15:47 | PN ---
Teaching Attending Note Name of Resident: Stuart Kasper ATTENDING PHYSICIAN STATEMENT I saw and evaluated the patient. I reviewed the resident's note and discussed the case with the resident. I agree with the resident's findings and plan as documented. SUBJECTIVE: Seen and examined at bedside in ED. Patient is nonverbal with severe MR, contracted. OBJECTIVE: Vital Signs - 24 hr 09/24/19 09/24/19 09/24/19 20:18 21:04 21:28 Temperature 99.6 F Pulse Rate 110 H Pulse Rate [ Apical] Pulse Rate [ Left Radial] Respiratory 26 H Rate Blood Pressure 112/86 Blood Pressure [Left Arm] Blood Pressure [Left] O2 Sat by Pulse 100 95 95 Oximetry (%) 09/25/19 09/25/19 09/25/19 03:37 06:33 07:30 Temperature 97.5 F L Pulse Rate Pulse Rate [ 72 60 Apical] Pulse Rate [ 78 Left Radial] Respiratory 20 18 18 Rate Blood Pressure Blood Pressure 137/91 130/81 [Left Arm] Blood Pressure 107/75 [Left] O2 Sat by Pulse 100 95 95 Oximetry (%) 09/25/19 14:00 Temperature 97.6 F Pulse Rate Pulse Rate [ 65 Apical] Pulse Rate [ Left Radial] Respiratory 14 Rate Blood Pressure Blood Pressure 130/81 [Left Arm] Blood Pressure [Left] O2 Sat by Pulse 98 Oximetry (%) PE: Gen: severe MR, laying in bed, appears comfortable CVS: RRR Lungs: coarse BS bl bases anteriorly Abd: soft, +Gtube, ntnd Ext: severely contracted, no edema Neuro: severe MR, cerebral palsy, developmental delay Current Medications Heparin Sodium (Porcine) (Heparin -) 5,000 unit SQ TID DAQUAN Last Admin: 09/25/19 14:19 Dose: 5,000 unit Sodium Chloride (Normal Saline -) 1,000 mls @ 50 mls/hr IV ASDIR DAQUAN Stop: 09/26/19 00:24 Last Admin: 09/25/19 02:01 Dose: 50 mls/hr Piperacillin Sod/Tazobactam (Sod 4.5 gm/ Dextrose) 100 mls @ 200 mls/hr IVPB Q6H-IV DAQUAN; Protocol Insulin Aspart (Novolog Vial Sliding Scale -) 1 vial SQ ACHS DAQUAN; Protocol Last Admin: 09/25/19 11:27 Dose: Not Given Multivitamins/Minerals (Certavite-Antioxidant Liquid) 15 ml PO HS DAQUAN Scopolamine HBr (Transderm-Scop -) 1 patch TD Q72H DAQUAN Last Admin: 09/25/19 02:08 Dose: 1 patch Senna (Senna Oral Solution -) 8.8 mg GT HS DAQUAN Laboratory Results - last 24 hr 09/24/19 09/24/19 09/24/19 21:18 21:18 21:18 WBC 13.0 H RBC 4.99 Hgb 15.7 H Hct 45.4 H MCV 91.0 MCH 31.5 MCHC 34.6 RDW 12.6 Plt Count 309 D MPV 8.7 Absolute Neuts (auto) 11.1 H Neutrophils % 85.4 H D Lymphocytes % 6.5 L D Monocytes % 7.7 Eosinophils % 0.1 D Basophils % 0.3 Nucleated RBC % 0 PT with INR 13.40 H INR 1.13 H PTT (Actin FS) 37.6 H Anticoagulation Therapy Puncture Site Patient Temperature ABG pH ABG pCO2 at Pt Temp ABG pO2 at Pt Temp ABG HCO3 ABG O2 Sat (Measured) ABG O2 Content ABG Base Excess Antonio Test VBG pH POC VBG pCO2 POC VBG pO2 VBG HCO3 VBG O2 Sat (Christian) VBG Base Excess O2 Delivery Device Oxygen Flow Rate Vent Mode Vent Rate Mechanical Rate PEEP Pressure Support Vent Sodium 129 L Potassium 4.6 Chloride 91 L Carbon Dioxide 32 Anion Gap 6 L BUN 14.4 Creatinine 0.4 L Est GFR (CKD-EPI)AfAm 143.76 Est GFR (CKD-EPI)NonAf 124.03 POC Glucometer Random Glucose 152 H Hemoglobin A1c % Serum Osmolality Lactic Acid Calcium 9.2 Phosphorus Magnesium Total Bilirubin 0.4 AST 11 L ALT 19 Alkaline Phosphatase 115 Troponin I Total Protein 7.6 Albumin 3.9 Urine Color Urine Appearance Urine pH Ur Specific [place] Urine Protein Urine Glucose (UA) Urine Ketones Urine Blood Urine Nitrite Urine Bilirubin Urine Urobilinogen Ur Leukocyte Esterase Urine WBC (Auto) Urine RBC (Auto) Urine Casts (Auto) U Epithel Cells (Auto) Urine Bacteria (Auto) Urine Osmolality Ur Random Creatinine Ur Random Sodium Ur Random Potassium Ur Random Chloride Influenza A (Rapid) Influenza B (Rapid) 09/24/19 09/24/19 09/24/19 21:18 21:18 21:18 WBC RBC Hgb Hct MCV MCH MCHC RDW Plt Count MPV Absolute Neuts (auto) Neutrophils % Lymphocytes % Monocytes % Eosinophils % Basophils % Nucleated RBC % PT with INR INR PTT (Actin FS) Anticoagulation Therapy Puncture Site Patient Temperature ABG pH ABG pCO2 at Pt Temp ABG pO2 at Pt Temp ABG HCO3 ABG O2 Sat (Measured) ABG O2 Content ABG Base Excess Antonio Test VBG pH 7.37 POC VBG pCO2 59.2 H POC VBG pO2 < 49 H VBG HCO3 33.7 H VBG O2 Sat (Christian) 74.8 VBG Base Excess 6.6 H O2 Delivery Device Oxygen Flow Rate Vent Mode Vent Rate Mechanical Rate PEEP Pressure Support Vent Sodium Potassium Chloride Carbon Dioxide Anion Gap BUN Creatinine Est GFR (CKD-EPI)AfAm Est GFR (CKD-EPI)NonAf POC Glucometer Random Glucose Hemoglobin A1c % Serum Osmolality Lactic Acid Calcium Phosphorus Magnesium Total Bilirubin AST ALT Alkaline Phosphatase Troponin I < 0.02 Total Protein Albumin Urine Color Urine Appearance Urine pH Ur Specific [place] Urine Protein Urine Glucose (UA) Urine Ketones Urine Blood Urine Nitrite Urine Bilirubin Urine Urobilinogen Ur Leukocyte Esterase Urine WBC (Auto) Urine RBC (Auto) Urine Casts (Auto) U Epithel Cells (Auto) Urine Bacteria (Auto) Urine Osmolality Ur Random Creatinine Ur Random Sodium Ur Random Potassium Ur Random Chloride Influenza A (Rapid) Negative Influenza B (Rapid) Negative 09/24/19 09/24/19 09/25/19 21:39 23:10 01:04 WBC RBC Hgb Hct MCV MCH MCHC RDW Plt Count MPV Absolute Neuts (auto) Neutrophils % Lymphocytes % Monocytes % Eosinophils % Basophils % Nucleated RBC % PT with INR INR PTT (Actin FS) Anticoagulation Therapy Puncture Site Patient Temperature ABG pH ABG pCO2 at Pt Temp ABG pO2 at Pt Temp ABG HCO3 ABG O2 Sat (Measured) ABG O2 Content ABG Base Excess Antonio Test VBG pH POC VBG pCO2 POC VBG pO2 VBG HCO3 VBG O2 Sat (Christian) VBG Base Excess O2 Delivery Device Oxygen Flow Rate Vent Mode Vent Rate Mechanical Rate PEEP Pressure Support Vent Sodium Potassium Chloride Carbon Dioxide Anion Gap BUN Creatinine Est GFR (CKD-EPI)AfAm Est GFR (CKD-EPI)NonAf POC Glucometer Random Glucose Hemoglobin A1c % Serum Osmolality Lactic Acid 2.2 H* Calcium Phosphorus Magnesium Total Bilirubin AST ALT Alkaline Phosphatase Troponin I Total Protein Albumin Urine Color Yellow Urine Appearance Clear Urine pH 8.0 Ur Specific [place] 1.012 Urine Protein Negative Urine Glucose (UA) Trace Urine Ketones Negative Urine Blood Negative Urine Nitrite Negative Urine Bilirubin Negative Urine Urobilinogen 0.2 Ur Leukocyte Esterase 1+ H Urine WBC (Auto) 10 Urine RBC (Auto) 3 Urine Casts (Auto) 2 U Epithel Cells (Auto) 2.0 Urine Bacteria (Auto) 90.8 Urine Osmolality Ur Random Creatinine < 13.0 L Ur Random Sodium Ur Random Potassium Ur Random Chloride Influenza A (Rapid) Influenza B (Rapid) 09/25/19 09/25/19 09/25/19 01:04 01:04 06:20 WBC 5.9 RBC 4.48 Hgb 14.3 Hct 41.4 MCV 92.3 MCH 31.9 MCHC 34.5 RDW 12.5 Plt Count 240 D MPV 8.1 Absolute Neuts (auto) 3.4 Neutrophils % 57.7 D Lymphocytes % 26.8 D Monocytes % 12.4 H Eosinophils % 2.2 D Basophils % 0.9 Nucleated RBC % 0 PT with INR INR PTT (Actin FS) Anticoagulation Therapy Puncture Site Patient Temperature ABG pH ABG pCO2 at Pt Temp ABG pO2 at Pt Temp ABG HCO3 ABG O2 Sat (Measured) ABG O2 Content ABG Base Excess Antonio Test VBG pH POC VBG pCO2 POC VBG pO2 VBG HCO3 VBG O2 Sat (Christian) VBG Base Excess O2 Delivery Device Oxygen Flow Rate Vent Mode Vent Rate Mechanical Rate PEEP Pressure Support Vent Sodium Potassium Chloride Carbon Dioxide Anion Gap BUN Creatinine Est GFR (CKD-EPI)AfAm Est GFR (CKD-EPI)NonAf POC Glucometer Random Glucose Hemoglobin A1c % Serum Osmolality Lactic Acid Calcium Phosphorus Magnesium Total Bilirubin AST ALT Alkaline Phosphatase Troponin I Total Protein Albumin Urine Color Urine Appearance Urine pH Ur Specific [place] Urine Protein Urine Glucose (UA) Urine Ketones Urine Blood Urine Nitrite Urine Bilirubin Urine Urobilinogen Ur Leukocyte Esterase Urine WBC (Auto) Urine RBC (Auto) Urine Casts (Auto) U Epithel Cells (Auto) Urine Bacteria (Auto) Urine Osmolality 332 Ur Random Creatinine Ur Random Sodium 41 Ur Random Potassium 49.0 Ur Random Chloride 57 L Influenza A (Rapid) Influenza B (Rapid) 09/25/19 09/25/19 09/25/19 06:20 06:20 07:36 WBC RBC Hgb Hct MCV MCH MCHC RDW Plt Count MPV Absolute Neuts (auto) Neutrophils % Lymphocytes % Monocytes % Eosinophils % Basophils % Nucleated RBC % PT with INR INR PTT (Actin FS) Anticoagulation Therapy Puncture Site Patient Temperature ABG pH ABG pCO2 at Pt Temp ABG pO2 at Pt Temp ABG HCO3 ABG O2 Sat (Measured) ABG O2 Content ABG Base Excess Antonio Test VBG pH POC VBG pCO2 POC VBG pO2 VBG HCO3 VBG O2 Sat (Christian) VBG Base Excess O2 Delivery Device Oxygen Flow Rate Vent Mode Vent Rate Mechanical Rate PEEP Pressure Support Vent Sodium 135 L Potassium 4.2 Chloride 101 Carbon Dioxide 30 Anion Gap 4 L BUN 6.7 L Creatinine 0.3 L Est GFR (CKD-EPI)AfAm 158.03 Est GFR (CKD-EPI)NonAf 136.35 POC Glucometer 89 Random Glucose 89 Hemoglobin A1c % 4.9 Serum Osmolality Lactic Acid Calcium 8.0 L Phosphorus 3.0 Magnesium 1.9 Total Bilirubin AST ALT Alkaline Phosphatase Troponin I Total Protein Albumin Urine Color Urine Appearance Urine pH Ur Specific [place] Urine Protein Urine Glucose (UA) Urine Ketones Urine Blood Urine Nitrite Urine Bilirubin Urine Urobilinogen Ur Leukocyte Esterase Urine WBC (Auto) Urine RBC (Auto) Urine Casts (Auto) U Epithel Cells (Auto) Urine Bacteria (Auto) Urine Osmolality Ur Random Creatinine Ur Random Sodium Ur Random Potassium Ur Random Chloride Influenza A (Rapid) Influenza B (Rapid) 09/25/19 09/25/19 09/25/19 07:44 11:10 11:10 WBC RBC Hgb Hct MCV MCH MCHC RDW Plt Count MPV Absolute Neuts (auto) Neutrophils % Lymphocytes % Monocytes % Eosinophils % Basophils % Nucleated RBC % PT with INR INR PTT (Actin FS) Anticoagulation Therapy Cancelled Puncture Site Cancelled Patient Temperature Cancelled ABG pH Cancelled ABG pCO2 at Pt Temp Cancelled ABG pO2 at Pt Temp Cancelled ABG HCO3 Cancelled ABG O2 Sat (Measured) Cancelled ABG O2 Content Cancelled ABG Base Excess Cancelled Antonio Test Cancelled VBG pH POC VBG pCO2 POC VBG pO2 VBG HCO3 VBG O2 Sat (Christian) VBG Base Excess O2 Delivery Device Cancelled Oxygen Flow Rate Cancelled Vent Mode Cancelled Vent Rate Cancelled Mechanical Rate Cancelled PEEP Cancelled Pressure Support Vent Cancelled Sodium Potassium Chloride Carbon Dioxide Anion Gap BUN Creatinine Est GFR (CKD-EPI)AfAm Est GFR (CKD-EPI)NonAf POC Glucometer Random Glucose Hemoglobin A1c % Serum Osmolality 279 Lactic Acid 0.6 Calcium Phosphorus Magnesium Total Bilirubin AST ALT Alkaline Phosphatase Troponin I Total Protein Albumin Urine Color Urine Appearance Urine pH Ur Specific [place] Urine Protein Urine Glucose (UA) Urine Ketones Urine Blood Urine Nitrite Urine Bilirubin Urine Urobilinogen Ur Leukocyte Esterase Urine WBC (Auto) Urine RBC (Auto) Urine Casts (Auto) U Epithel Cells (Auto) Urine Bacteria (Auto) Urine Osmolality Ur Random Creatinine Ur Random Sodium Ur Random Potassium Ur Random Chloride Influenza A (Rapid) Influenza B (Rapid) 09/25/19 11:23 WBC RBC Hgb Hct MCV MCH MCHC RDW Plt Count MPV Absolute Neuts (auto) Neutrophils % Lymphocytes % Monocytes % Eosinophils % Basophils % Nucleated RBC % PT with INR INR PTT (Actin FS) Anticoagulation Therapy Puncture Site Patient Temperature ABG pH ABG pCO2 at Pt Temp ABG pO2 at Pt Temp ABG HCO3 ABG O2 Sat (Measured) ABG O2 Content ABG Base Excess Antonio Test VBG pH POC VBG pCO2 POC VBG pO2 VBG HCO3 VBG O2 Sat (Christian) VBG Base Excess O2 Delivery Device Oxygen Flow Rate Vent Mode Vent Rate Mechanical Rate PEEP Pressure Support Vent Sodium Potassium Chloride Carbon Dioxide Anion Gap BUN Creatinine Est GFR (CKD-EPI)AfAm Est GFR (CKD-EPI)NonAf POC Glucometer 119 Random Glucose Hemoglobin A1c % Serum Osmolality Lactic Acid Calcium Phosphorus Magnesium Total Bilirubin AST ALT Alkaline Phosphatase Troponin I Total Protein Albumin Urine Color Urine Appearance Urine pH Ur Specific [place] Urine Protein Urine Glucose (UA) Urine Ketones Urine Blood Urine Nitrite Urine Bilirubin Urine Urobilinogen Ur Leukocyte Esterase Urine WBC (Auto) Urine RBC (Auto) Urine Casts (Auto) U Epithel Cells (Auto) Urine Bacteria (Auto) Urine Osmolality Ur Random Creatinine Ur Random Sodium Ur Random Potassium Ur Random Chloride Influenza A (Rapid) Influenza B (Rapid) Assessment: 48-year-old woman, developmentally delayed admitted with acute hypoxic respiratory failure Sepsis Acute hypoxic respiratory failure Pneumonia, likely aspiration Hyponatremia Cerebral Palsy Severe MR, quadriplegia DM CHF Convulsive epilepsy hx not on meds Sacral decubitus Plan: pancultured iv abx inhaled nebs holding tube feeds speech and swallow eval urine studies pending insulin sliding scale continue with current mngmt
--- NOTE | 2019-09-25 17:35 | PN ---
Progress Note (short form) - Note Progress Note: ID consult dictated imp/reccd cannot r/o right sided infiltrate in the 48 yo female from the [facility] with cp/mr- uses oxygen prn at baseline at [place] per her aide continue zosyn for aspiration f/u cultures hopefully transition to po antiibotics soon Problem List - Problems (1) Pneumonia Code(s): J18.9 - PNEUMONIA, UNSPECIFIED ORGANISM Qualifiers: Pneumonia type: due to unspecified organism Laterality: right Lung location: lower lobe of lung Qualified Code(s): J18.9 - Pneumonia, unspecified organism (2) Cerebral palsy Code(s): G80.9 - CEREBRAL PALSY, UNSPECIFIED (3) Mental retardation Code(s): F79 - UNSPECIFIED INTELLECTUAL DISABILITIES
--- NOTE | 2019-09-25 18:37 | CONS ---
INFECTIOUS DISEASE CONSULTATION DATE OF CONSULTATION: DATE OF DICTATION: 09/25/2019 REQUESTED BY: Hospitalist service HISTORY: This is a 48-year-old woman who resides at the [facility] with a diagnosis of mental retardation, quadriplegia, severe scoliosis, seizure disorder, and cerebral palsy. She presents to the ER with hypoxia at the group home to rule out pneumonia. She had a chest x-ray done in the ER, which was felt to have a possible right lower lobe infiltrate, and she was placed on Zosyn. I am asked to evaluate her. ALLERGIES: She is allergic to CLINDAMYCIN, which gives her a rash. MEDICATIONS: Her medications at the group home include vitamin C, collagenase, folic acid, senna. Her medications include DuoNebs, Scopolamine patch, ProMod, multivitamins, senna, hydrocortisone cream, collagenase, vitamin C. PAST MEDICAL HISTORY: Extensive. Notable for mental retardation, cerebral palsy, hydrocephalus, quadriplegia, severe scoliosis, diabetes. She has a pacemaker. History of CHF, history of seizures. Has not had a seizure in many years. SURGICAL HISTORY: Notable for a CSF shunt. She has had a hip fracture and repair. She has had a femoral artery resection and a pacemaker. SOCIAL HISTORY: She lives at the [facility]. REVIEW OF SYSTEMS: Her aide is present who is not with her all the time, but apparently, she has had a mild cough for the last 1 or 2 days. There has been no vomiting. She uses oxygen p.r.n. 2 L at the [facility] as well, and she has a G-tube. PHYSICAL EXAMINATION: Vital Signs: Her temperature is 97.6. Her maximum temperature was 99.6 when she arrived, but per the history and physical, she had a temperature of 101 I suspect maybe at the [facility]. Current vitals; her pulse is 65, blood pressure 130/80, respiratory rate 14. She is saturating 98% on 2 L, and she is quite comfortable. HEENT: She is normocephalic. Her eyes are anicteric. General: She does not follow any commands. She is not in any distress. Lungs: Difficult to assess due to her scoliosis. She has diminished breath sounds. Heart: Regular rate and rhythm. Abdomen: Soft. She has a G-tube. Extremities: Without edema. DIAGNOSTIC DATA: She has a white count that on admission was 13, today is 5.9, hemoglobin 14.3, platelets are 240. BUN 6.7, creatinine 0.3. Her urinalysis had 10 white cells. Influenza screen was negative. Urinary antigens were negative. In summary, this is a 48-year-old woman from the [facility] with possible right lower lobe pneumonia. Apparently had a fever of 101 earlier at the [facility]. She appears to be improving. Would continue her on Zosyn at this time. We will adjust her dose for her weight and her renal function. Cultures have been ordered, which we can follow up as well. Further recommendations to follow. OZZY DOCKERY M.D. [id number]
[2019-09-25] MEDS ORDERED: PIPERACILLIN/TAZOB 4.5 GM 4.5 GM in DEXTROSE 5%-WATER 100 ML IVPB SCH (21:00)
[2019-09-25] MEDS ORDERED: PT OWN MED DRAWER 7, Y5N ONE (21:28)
[2019-09-25] MEDS ORDERED: MULTIVIT-MINERALS ORAL LIQUID PO SCH (22:00)
[2019-09-25] MEDS: SENNOSIDES 8.8 MG/5 ML BULK BOTTLE GT SCH (23:00)
[2019-09-26] MEDS ORDERED: PIPERACILLIN/TAZOBACTAM 3.375 GM VIAL IVPB ONE ×2 (01:37→08:41)
[2019-09-26] MEDS ORDERED: DEXTROSE 5%-WATER - 50 ML IVPB ONE ×2 (01:38→08:41)
[2019-09-26] MEDS: PIPERACILLIN/TAZOB 3.375 GM 3.375 GM in DEXTROSE 5%-WATER - 50 ML IVPB SCH ×2 (01:46→09:02)
[2019-09-26] MEDS: HEPARIN NA (PORCINE) 5,000 UNITS/ML 1ML VIAL SQ SCH ×3 (06:44→22:37)
[2019-09-26] MEDS: INSULIN SLIDING SCALE (NOVOLOG) 1 VIAL SQ SCH ×4 (06:44→22:37)
[2019-09-26 08:09] LABS: BASO % 0.5 % (0-2.0); EOS % 2.9 % (0-4.5); HEMATOCRIT 43.7 % (32.4-45.2); HEMOGLOBIN 14.6 GM/dL (10.7-15.3); LYMPH % 17.9 % (8-40); MCH 31.4 pg (25.7-33.7); MCHC 33.4 g/dl (32.0-36.0); MEAN PLT VOLUME 8.4 fl (7.5-11.1); MONO % 9.5 % (3.8-10.2); NEUT % 69.2 % (42.8-82.8); PLATELET COUNT 245 K/MM3 (134-434); RBC 4.65 M/mm3 (3.60-5.2); RDW 12.8 % (11.6-15.6); WHITE BLOOD COUNT 7.5 K/mm3 (4.0-10.0)
[2019-09-26] MEDS ORDERED: SODIUM CHLORIDE 1,000 ML IV SCH (08:30)
[2019-09-26 08:36] LABS: ALBUMIN 3.1 g/dl (3.4-5.0); BILIRUBIN,TOTAL 0.4 mg/dL (0.2-1); CALCIUM 8.6 mg/dL (8.5-10.1); CREATININE 0.3 mg/dL (0.55-1.3); POTASSIUM 3.4 mmol/L (3.5-5.1); TOT PROT 6.2 g/dl (6.4-8.2)
[2019-09-26] MEDS ORDERED: ACETAMINOPHEN 650 MG/20.3 ML ORAL SOLUTION (CUPS) PO PRN (10:47)
--- NOTE | 2019-09-26 11:51 | PN ---
Physical Exam: SUBJECTIVE: Patient seen and examined. no events overnight. OBJECTIVE: Vital Signs Period Temp Pulse Resp BP Sys/Kent Pulse Ox Last 24 Hr 96.7 F-98.6 F 59-84 14-20 90-130/55-81 98-100 GENERAL: awake, moaning HEAD: Macrocephalic EYES: Pupils equal, round and sluggish reaction to light. EARS, NOSE, THROAT: Dry mucous membranes. LUNGS: decreased breath sounds, course HEART: Regular rate and rhythm, normal S1 and S2. ABDOMEN: soft, no grimacing to palpation MUSCULOSKELETAL: Contracted extremities throughout. LOWER EXTREMITIES: Contacted. 2+ pulses NEUROLOGICAL: Minimal to no response to painful stimuli. SKIN: Cool, dry, minimal erythema., non-draining. Stage 2 sacral decubitus Laboratory Results - last 24 hr 09/25/19 09/25/19 09/25/19 11:10 11:10 17:21 WBC RBC Hgb Hct MCV MCH MCHC RDW Plt Count MPV Absolute Neuts (auto) Neutrophils % Lymphocytes % Monocytes % Eosinophils % Basophils % Nucleated RBC % Sodium Potassium Chloride Carbon Dioxide Anion Gap BUN Creatinine Est GFR (CKD-EPI)AfAm Est GFR (CKD-EPI)NonAf POC Glucometer 119 Random Glucose Serum Osmolality 279 Lactic Acid 0.6 Calcium Total Bilirubin AST ALT Alkaline Phosphatase Total Protein Albumin Influenza A (Rapid) Influenza B (Rapid) RSV Rapid 09/25/19 09/26/19 09/26/19 23:03 06:42 06:43 WBC 7.5 RBC 4.65 Hgb 14.6 Hct 43.7 MCV 94.0 MCH 31.4 MCHC 33.4 RDW 12.8 Plt Count 245 MPV 8.4 Absolute Neuts (auto) 5.2 Neutrophils % 69.2 Lymphocytes % 17.9 D Monocytes % 9.5 Eosinophils % 2.9 Basophils % 0.5 Nucleated RBC % 0 Sodium Potassium Chloride Carbon Dioxide Anion Gap BUN Creatinine Est GFR (CKD-EPI)AfAm Est GFR (CKD-EPI)NonAf POC Glucometer 78 85 Random Glucose Serum Osmolality Lactic Acid Calcium Total Bilirubin AST ALT Alkaline Phosphatase Total Protein Albumin Influenza A (Rapid) Influenza B (Rapid) RSV Rapid 09/26/19 09/26/19 09/26/19 06:43 10:13 10:20 WBC RBC Hgb Hct MCV MCH MCHC RDW Plt Count MPV Absolute Neuts (auto) Neutrophils % Lymphocytes % Monocytes % Eosinophils % Basophils % Nucleated RBC % Sodium 137 Potassium 3.4 L Chloride 101 Carbon Dioxide 31 Anion Gap 6 L BUN 4.0 L Creatinine 0.3 L Est GFR (CKD-EPI)AfAm 158.03 Est GFR (CKD-EPI)NonAf 136.35 POC Glucometer 94 Random Glucose 68 L Serum Osmolality Lactic Acid Calcium 8.6 Total Bilirubin 0.4 AST 10 L ALT 15 Alkaline Phosphatase 84 Total Protein 6.2 L Albumin 3.1 L Influenza A (Rapid) Negative Influenza B (Rapid) Negative RSV Rapid 09/26/19 10:20 WBC RBC Hgb Hct MCV MCH MCHC RDW Plt Count MPV Absolute Neuts (auto) Neutrophils % Lymphocytes % Monocytes % Eosinophils % Basophils % Nucleated RBC % Sodium Potassium Chloride Carbon Dioxide Anion Gap BUN Creatinine Est GFR (CKD-EPI)AfAm Est GFR (CKD-EPI)NonAf POC Glucometer Random Glucose Serum Osmolality Lactic Acid Calcium Total Bilirubin AST ALT Alkaline Phosphatase Total Protein Albumin Influenza A (Rapid) Influenza B (Rapid) RSV Rapid Negative Active Medications Generic Name Dose Route Start Last Admin Trade Name Freq PRN Reason Stop Dose Admin Acetaminophen 325 mg 09/26/19 11:22 Tylenol Oral Solution - GT Q6H PRN PAIN Amoxicillin/Clavulanate Potassium 875 mg 09/26/19 17:30 Augmentin 250 Mg/5 Ml Oral Suspension - GT BID@0800,1730 DAQUAN Heparin Sodium (Porcine) 5,000 unit 09/25/19 06:00 09/26/19 06:44 Heparin - SQ 5,000 unit TID DAQUAN Administration Sodium Chloride 1,000 mls @ 75 mls/hr 09/26/19 08:30 09/26/19 09:04 Normal Saline - IV 75 mls/hr ASDIR DAQUAN Administration Insulin Aspart 1 vial 09/25/19 07:00 09/26/19 10:14 Novolog Vial Sliding Scale - SQ Not Given ACHS [facility] Protocol Multivitamins/Minerals 15 ml 09/26/19 10:49 Certavite-Antioxidant Liquid GT HS DAQUAN Scopolamine HBr 1 patch 09/25/19 01:45 09/25/19 02:08 Transderm-Scop - TD 1 patch Q72H DAQUAN Administration Senna 8.8 mg 09/25/19 22:00 09/25/19 23:00 Senna Oral Solution - GT 8.8 mg HS DAQUAN Administration ASSESSMENT/PLAN: Danna Reyes is a 48 year old female with a past medical history of MR, cerebral palsy, hydrocephalus, quadriplegia, self-abuse, severe scoliosis, DM, pacemaker placement, CHF, convulvise epilepsy admitted for sepsis secondary to PNA. #Sepsis secondary to PNA -CXR questionable for patchy consolidation in the R lung -patient with chronic history of PNA -Flu negative -dc Zosyn -Start PO abx: Augmentin via G tube -hold tube feeds pending speech and swallow eval -blood cx pending -fu ucx -dysphagia precautions, elevated HOB #DM - BGM - ISS - A1c #Sacral Decubitus Stage 2 - wound care consulted - local wound care - turning q2h #Hyponatremia - resolving, likely in setting of elevated free water in tube feeds vs SIADH - dietary eval for adjustment of water flushes and free water in feeds, hold feeds temporarily - NS at 50cc/hr, continue to monitor and adjust as necessary #DVT PPx - heparin 5000 units subq tid FEN - d5/ns with K - continue to monitor electrolytes and replete as necessary - tube feeds held. normally on Jevity 1.5 420mL@40cc/hr x 3.5hrs @8AM,4PM,12AM with 3mL/hr water flush and 35mL water after each feed Visit type - Emergency Visit Emergency Visit: Yes ED Registration Date: 09/24/19 Care time: The patient presented to the Emergency Department on the above date and was hospitalized for further evaluation of their emergent condition. - New Patient This patient is new to me today: Yes Date on this admission: 09/26/19 - Critical Care Critical Care patient: No ATTENDING PHYSICIAN STATEMENT I saw and evaluated the patient. I reviewed the resident's note and discussed the case with the resident. I agree with the resident's findings and plan as documented. SUBJECTIVE: OBJECTIVE: ASSESSMENT AND PLAN:
[2019-09-26 12:34] VITALS: BMI 21.3
[2019-09-26] MEDS: AMOX TR/POTASSIUM CLAVULANATE 250 MG/5 ML BOTTLE GT SCH ×2 (13:29→18:05)
--- NOTE | 2019-09-26 14:15 | PN ---
Progress Note (short form) - Note Progress Note: resting comfortably NAD Vital Signs Period Temp Pulse Resp BP Sys/Kent Pulse Ox Last 24 Hr 96.7 F-98.6 F 59-84 18-20 90-122/55-74 100-100 cor-rrr lungs clear abd soft,n+GT ext no edema CBC, BMP 09/26/19 06:43 09/26/19 06:43 Microbiology 09/24/19 23:10 Urine - Urine - Catheterized Urine Culture - Preliminary 09/24/19 21:48 Blood - Peripheral Venous Blood Culture - Preliminary NO GROWTH OBTAINED AFTER 24 HOURS, INCUBATION TO CONTINUE FOR 4 DAYS. 09/24/19 21:48 Blood - Peripheral Venous Blood Culture - Preliminary NO GROWTH OBTAINED AFTER 24 HOURS, INCUBATION TO CONTINUE FOR 4 DAYS. 09/25/19 00:56 Urine - Urine - Catheterized Legionella Antigen - Final 09/25/19 00:56 Urine - Urine - Catheterized Streptococcus pneumoniae Antigen (M - Final a/p cannot r/o RLL infiltrate in the 48 yo female from the [facility] continue zosyn po augmentin in am please call back if needed d/w hospitalist team
--- NOTE | 2019-09-26 14:42 | PN ---
Teaching Attending Note Name of Resident: Stuart Kasper ATTENDING PHYSICIAN STATEMENT I saw and evaluated the patient. I reviewed the resident's note and discussed the case with the resident. I agree with the resident's findings and plan as documented. SUBJECTIVE: Patient seen at bedside, WBC count trending down, afebrile, will cont. IV abx for 1 more day and switch to PO in AM as per ID recommendations. Otherwise no acute changes in clinical status, DC back to [place] when appropriate. OBJECTIVE: GENERAL: The patient is awake, alert, and fully oriented, in no acute distress. HEAD: Normal with no signs of trauma. EYES: PERRL, extraocular movements intact, sclera anicteric, conjunctiva clear. No ptosis. ENT: Ears normal, nares patent, oropharynx clear without exudates, moist mucous membranes. NECK: Trachea midline, full range of motion, supple. LUNGS: Breath sounds equal, clear to auscultation bilaterally, no wheezes, no crackles, no accessory muscle use. HEART: Regular rate and rhythm, S1, S2 without murmur, rub or gallop. ABDOMEN: Soft, nontender, nondistended, normoactive bowel sounds, no guarding, no rebound, no hepatosplenomegaly, no masses. EXTREMITIES: 2+ pulses, warm, well-perfused, no edema. NEUROLOGICAL: Cranial nerves II through XII grossly intact. Normal speech, gait not observed. PSYCH: Normal mood, normal affect. SKIN: Warm, dry, normal turgor, no rashes or lesions noted ASSESSMENT AND PLAN: 48-year-old woman, developmentally delayed admitted with acute hypoxic respiratory failure Sepsis Acute hypoxic respiratory failure Pneumonia, likely aspiration Hyponatremia Cerebral Palsy Severe MR, quadriplegia DM CHF Convulsive epilepsy hx not on meds Sacral decubitus Plan: One more day of IV abx, then switch to PO Augmentin in AM and observe inhaled nebs hold tube feeds pending speech and swallow eval Monitor FS, start D5NS PRN if hypoglycemic Urine legionella/cx negative, UA showing mild UTI getting abx to cover insulin sliding scale continue with current mngmt
[2019-09-26] MEDS: D5-NS + 20 MEQ KCL - 20 MEQ/1,000 ML INFUS.BAG IV SCH (17:34)
[2019-09-26] MEDS: ACETAMINOPHEN 650 MG/20.3 ML ORAL SOLUTION (CUPS) GT PRN (18:14)
[2019-09-26] MEDS ORDERED: PT OWN MED DRAWER 7, Y5N ONE ×2 (21:40→22:40)
[2019-09-26] MEDS: MULTIVIT-MINERALS ORAL LIQUID GT SCH (22:37)
[2019-09-26] MEDS: SENNOSIDES 8.8 MG/5 ML BULK BOTTLE GT SCH (22:41)
[2019-09-27] MEDS: ACETAMINOPHEN 650 MG/20.3 ML ORAL SOLUTION (CUPS) GT PRN ×2 (04:05→12:11)
[2019-09-27] MEDS: INSULIN SLIDING SCALE (NOVOLOG) 1 VIAL SQ SCH ×4 (06:09→22:16)
[2019-09-27] MEDS ORDERED: PT OWN MED DRAWER 7, Y5N ONE ×5 (07:41→21:19)
[2019-09-27 08:25] LABS: BASO % 0.9 % (0-2.0); EOS % 1.9 % (0-4.5); HEMATOCRIT 40.2 % (32.4-45.2); HEMOGLOBIN 13.9 GM/dL (10.7-15.3); LYMPH % 15.6 % (8-40); MCH 31.8 pg (25.7-33.7); MCHC 34.7 g/dl (32.0-36.0); MEAN CELL VOLUME 91.6 fl (80-96); MEAN PLT VOLUME 8.2 fl (7.5-11.1); MONO % 9.5 % (3.8-10.2); NEUT % 72.1 % (42.8-82.8); PLATELET COUNT 232 K/MM3 (134-434); RBC 4.39 M/mm3 (3.60-5.2); RDW 12.3 % (11.6-15.6); WHITE BLOOD COUNT 6.4 K/mm3 (4.0-10.0)
[2019-09-27 08:51] LABS: ALBUMIN 3.3 g/dl (3.4-5.0); BILIRUBIN,TOTAL 0.4 mg/dL (0.2-1); CALCIUM 8.5 mg/dL (8.5-10.1); CREATININE 0.3 mg/dL (0.55-1.3); POTASSIUM 3.2 mmol/L (3.5-5.1); TOT PROT 6.5 g/dl (6.4-8.2)
[2019-09-27 09:10] LABS: BLOOD UREA NITROGEN 2.7 mg/dL (7-18)
[2019-09-27] MEDS: AMOX TR/POTASSIUM CLAVULANATE 250 MG/5 ML BOTTLE GT SCH ×3 (09:23→17:59)
[2019-09-27] MEDS: HEPARIN NA (PORCINE) 5,000 UNITS/ML 1ML VIAL SQ SCH ×2 (09:23→22:13)
[2019-09-27] MEDS ORDERED: POTASSIUM CHLORIDE ORAL LIQUID 20 MEQ/15 ML GT ONE (09:41)
--- NOTE | 2019-09-27 09:41 | PN ---
Physical Exam: SUBJECTIVE: Patient seen and examined. She appears comfortable. OBJECTIVE: Vital Signs Period Temp Pulse Resp BP Sys/Kent Pulse Ox Last 24 Hr 97.7 F-98.6 F 79-91 18-20 107-138/58-87 99-100 GENERAL: The patient is awake, alert, and in no acute distress. LUNGS: Breath sounds equal, diffuse rhonchi, no wheezes, no accessory muscle use. HEART: Regular rate and rhythm, S1, S2 without murmur, rub or gallop. ABDOMEN: Soft, nondistended, normoactive bowel sounds, no hepatosplenomegaly, no masses, G-tube in place EXTREMITIES: 2+ pulses, warm, well-perfused, no edema, contracted. Laboratory Results - last 24 hr 09/26/19 09/26/19 09/26/19 10:13 10:20 10:20 WBC RBC Hgb Hct MCV MCH MCHC RDW Plt Count MPV Absolute Neuts (auto) Neutrophils % Lymphocytes % Monocytes % Eosinophils % Basophils % Nucleated RBC % Sodium Potassium Chloride Carbon Dioxide Anion Gap BUN Creatinine Est GFR (CKD-EPI)AfAm Est GFR (CKD-EPI)NonAf POC Glucometer 94 Random Glucose Calcium Total Bilirubin AST ALT Alkaline Phosphatase Total Protein Albumin Influenza A (Rapid) Negative Influenza B (Rapid) Negative RSV Rapid Negative 09/26/19 09/26/19 09/27/19 16:56 22:35 06:08 WBC RBC Hgb Hct MCV MCH MCHC RDW Plt Count MPV Absolute Neuts (auto) Neutrophils % Lymphocytes % Monocytes % Eosinophils % Basophils % Nucleated RBC % Sodium Potassium Chloride Carbon Dioxide Anion Gap BUN Creatinine Est GFR (CKD-EPI)AfAm Est GFR (CKD-EPI)NonAf POC Glucometer 69 83 90 Random Glucose Calcium Total Bilirubin AST ALT Alkaline Phosphatase Total Protein Albumin Influenza A (Rapid) Influenza B (Rapid) RSV Rapid 09/27/19 09/27/19 07:35 07:35 WBC 6.4 RBC 4.39 Hgb 13.9 Hct 40.2 MCV 91.6 MCH 31.8 MCHC 34.7 RDW 12.3 Plt Count 232 MPV 8.2 Absolute Neuts (auto) 4.6 Neutrophils % 72.1 Lymphocytes % 15.6 Monocytes % 9.5 Eosinophils % 1.9 Basophils % 0.9 Nucleated RBC % 0 Sodium 135 L Potassium 3.2 L Chloride 97 L Carbon Dioxide 32 Anion Gap 6 L BUN 2.7 L* Creatinine 0.3 L Est GFR (CKD-EPI)AfAm 158.03 Est GFR (CKD-EPI)NonAf 136.35 POC Glucometer Random Glucose 89 Calcium 8.5 Total Bilirubin 0.4 AST 7 L ALT 16 Alkaline Phosphatase 85 Total Protein 6.5 Albumin 3.3 L Influenza A (Rapid) Influenza B (Rapid) RSV Rapid Active Medications Generic Name Dose Route Start Last Admin Trade Name Freq PRN Reason Stop Dose Admin Acetaminophen 325 mg 09/26/19 11:22 09/27/19 04:05 Tylenol Oral Solution - GT 325 mg Q6H PRN Administration PAIN Amoxicillin/Clavulanate Potassium 500 mg 09/26/19 12:30 09/26/19 18:05 Augmentin 250 Mg/5 Ml Oral Suspension - GT 10 ml TIDCM DAQUAN Administration Heparin Sodium (Porcine) 5,000 unit 09/26/19 22:00 09/26/19 22:37 Heparin - SQ 5,000 unit BID DAQUAN Administration Dextrose/Sodium Chloride 20 meq in 1,000 mls @ 42 mls/hr 09/26/19 17:15 09/26 17:34 Dextrose 5%-Normal Saline+20 Meq Kcl - IV 42 mls/hr ASDIR DAQUAN Administration Insulin Aspart 1 vial 09/25/19 07:00 09/27/19 06:09 Novolog Vial Sliding Scale - SQ Not Given ACHS DAQUAN Protocol Multivitamins/Minerals 15 ml 09/26/19 10:49 09/26/19 22:37 Certavite-Antioxidant Liquid GT 15 ml HS DAQUAN Administration Scopolamine HBr 1 patch 09/25/19 01:45 09/25/19 02:08 Transderm-Scop - TD 1 patch Q72H DAQUAN Administration Senna 8.8 mg 09/25/19 22:00 09/26/19 22:41 Senna Oral Solution - GT 8.8 mg HS DAQUAN Administration ASSESSMENT/PLAN: This is a 48 year old woman with a history of cerebral palsy, hydrocephalus, epilepsy, severe mental retardation, quadriplegia, type 2 DM, CHF, pacemaker, G- tube, scoliosis who was sent to the ED from [place] for fever and cough. 1. Sepsis (tachycardia, tachypnea, leukocytosis) secondary to aspiration pneumonia - Antibiotics changed to Augmentin via G-tube 2. Acute hypoxic respiratory failure - Continue oxygen as needed to keep saturation >90% 3. Hyponatremia - Improved 4. Hypokalemia - Replete potassium 5. Type 2 DM - Continue Novolog sliding scale 6. Cerebral palsy 7. Severe MR 8. Quadriplegia 9. History of CHF - No evidence of acute heart failure 10. Epilepsy 11. Hydrocephalus 12. History of pacemaker 13. Stage I sacral pressure ulcer - Continue wound care 14. Nutrition - Start Jevity 1.5 via G-tube 15. Disposition - Expect discharge to [place] 09/29 Visit type - Emergency Visit Emergency Visit: Yes ED Registration Date: 09/24/19 Care time: The patient presented to the Emergency Department on the above date and was hospitalized for further evaluation of their emergent condition. - New Patient This patient is new to me today: Yes Date on this admission: 09/27/19 - Critical Care Critical Care patient: No - Discharge Referral Referred to [facility] Med P.C.: No
[2019-09-27] MEDS: D5-NS + 20 MEQ KCL - 20 MEQ/1,000 ML INFUS.BAG IV SCH (17:59)
[2019-09-27] MEDS: MULTIVIT-MINERALS ORAL LIQUID GT SCH (22:12)
[2019-09-27] MEDS: SENNOSIDES 8.8 MG/5 ML BULK BOTTLE GT SCH (22:12)
[2019-09-28] MEDS: SCOPOLAMINE HYDROBROMIDE 1 PATCH PATCH.TD72 TD SCH (02:04)
[2019-09-28] MEDS: INSULIN SLIDING SCALE (NOVOLOG) 1 VIAL SQ SCH ×4 (06:53→21:24)
[2019-09-28] MEDS: AMOX TR/POTASSIUM CLAVULANATE 250 MG/5 ML BOTTLE GT SCH ×3 (09:04→17:43)
[2019-09-28] MEDS: HEPARIN NA (PORCINE) 5,000 UNITS/ML 1ML VIAL SQ SCH ×2 (09:04→21:24)
--- NOTE | 2019-09-28 09:49 | PN ---
Physical Exam: SUBJECTIVE: Patient seen and examined. She appears comfortable. OBJECTIVE: Vital Signs Period Temp Pulse Resp BP Sys/Kent Pulse Ox Last 24 Hr 97.5 F-98.4 F 69-89 18-20 96-132/63-86 95-97 GENERAL: The patient is awake, alert, and in no acute distress. LUNGS: Breath sounds equal, diffuse rhonchi, no wheezes, no accessory muscle use. HEART: Regular rate and rhythm, S1, S2 without murmur, rub or gallop. ABDOMEN: Soft, nondistended, normoactive bowel sounds, no hepatosplenomegaly, no masses, G-tube in place EXTREMITIES: 2+ pulses, warm, well-perfused, no edema, contracted. Laboratory Results - last 24 hr 09/27/19 09/27/19 09/27/19 12:15 17:57 22:15 POC Glucometer 128 122 116 09/28/19 06:52 POC Glucometer 139 Active Medications Generic Name Dose Route Start Last Admin Trade Name Freq PRN Reason Stop Dose Admin Acetaminophen 325 mg 09/26/19 11:22 09/27/19 12:11 Tylenol Oral Solution - GT 325 mg Q6H PRN Administration PAIN Amoxicillin/Clavulanate Potassium 500 mg 09/26/19 12:30 09/28/19 09:04 Augmentin 250 Mg/5 Ml Oral Suspension - GT 10 ml TIDCM DAQUAN Administration Heparin Sodium (Porcine) 5,000 unit 09/26/19 22:00 09/28/19 09:04 Heparin - SQ 5,000 unit BID DAQUAN Administration Dextrose/Sodium Chloride 20 meq in 1,000 mls @ 42 mls/hr 09/26/19 17:15 09/27 17:59 Dextrose 5%-Normal Saline+20 Meq Kcl - IV 42 mls/hr ASDIR DAQUAN Administration Insulin Aspart 1 vial 09/25/19 07:00 09/28/19 06:53 Novolog Vial Sliding Scale - SQ Not Given ACHS DAQUAN Protocol Multivitamins/Minerals 15 ml 09/26/19 10:49 09/27/19 22:12 Certavite-Antioxidant Liquid GT 15 ml HS DAQUAN Administration Scopolamine HBr 1 patch 09/25/19 01:45 09/28/19 02:04 Transderm-Scop - TD 1 patch Q72H DAQUAN Administration Senna 8.8 mg 09/25/19 22:00 09/27/19 22:12 Senna Oral Solution - GT 8.8 mg HS DAQUAN Administration ASSESSMENT/PLAN: This is a 48 year old woman with a history of cerebral palsy, hydrocephalus, epilepsy, severe mental retardation, quadriplegia, type 2 DM, CHF, pacemaker, G- tube, scoliosis who was sent to the ED from [place] for fever and cough. 1. Sepsis (tachycardia, tachypnea, leukocytosis) secondary to aspiration pneumonia - Continue Augmentin via G-tube (day 5 of antibiotics) 2. Acute hypoxic respiratory failure - Continue oxygen as needed to keep saturation >90% 3. Hyponatremia - Improved 4. Hypokalemia - Given potassium supplementation - Recheck potassium 5. Type 2 DM - Continue Novolog sliding scale 6. Cerebral palsy 7. Severe MR 8. Quadriplegia 9. History of CHF - No evidence of acute heart failure 10. Epilepsy 11. Hydrocephalus 12. History of pacemaker 13. Stage I sacral pressure ulcer - Continue wound care 14. Nutrition - Tolerating Jevity 1.5 via G-tube 15. Disposition - Expect discharge to [place] 09/29 Visit type - Emergency Visit Emergency Visit: Yes ED Registration Date: 09/24/19 Care time: The patient presented to the Emergency Department on the above date and was hospitalized for further evaluation of their emergent condition. - New Patient This patient is new to me today: No - Critical Care Critical Care patient: No - Discharge Referral Referred to [facility] Med P.C.: No
[2019-09-28 19:59] LABS: BASO % 0.6 % (0-2.0); EOS % 2.8 % (0-4.5); HEMATOCRIT 45.6 % (32.4-45.2); HEMOGLOBIN 15.4 GM/dL (10.7-15.3); LYMPH % 20.7 % (8-40); MCH 31.6 pg (25.7-33.7); MCHC 33.7 g/dl (32.0-36.0); MEAN CELL VOLUME 93.7 fl (80-96); MEAN PLT VOLUME 8.6 fl (7.5-11.1); MONO % 10.3 % (3.8-10.2); NEUT % 65.6 % (42.8-82.8); PLATELET COUNT 246 K/MM3 (134-434); RBC 4.86 M/mm3 (3.60-5.2); RDW 12.9 % (11.6-15.6); WHITE BLOOD COUNT 8.1 K/mm3 (4.0-10.0)
[2019-09-28 20:23] LABS: BLOOD UREA NITROGEN 3.9 mg/dL (7-18); CALCIUM 8.9 mg/dL (8.5-10.1); CREATININE 0.2 mg/dL (0.55-1.3); PHOSPHOROUS 2.9 mg/dL (2.5-4.9); POTASSIUM 3.9 mmol/L (3.5-5.1)
[2019-09-28] MEDS ORDERED: PT OWN MED DRAWER 7, Y5N ONE (20:51)
[2019-09-28] MEDS: MULTIVIT-MINERALS ORAL LIQUID GT SCH (21:23)
[2019-09-28] MEDS: SENNOSIDES 8.8 MG/5 ML BULK BOTTLE GT SCH (21:23)
[2019-09-29] MEDS: INSULIN SLIDING SCALE (NOVOLOG) 1 VIAL SQ SCH ×3 (08:06→17:19)
[2019-09-29 09:40] LABS: HEMATOCRIT 43.7 % (32.4-45.2); MCH 31.8 pg (25.7-33.7); MCHC 34.3 g/dl (32.0-36.0); MEAN CELL VOLUME 92.6 fl (80-96); MEAN PLT VOLUME 8.5 fl (7.5-11.1); PLATELET COUNT 225 K/MM3 (134-434); RBC 4.72 M/mm3 (3.60-5.2); RDW 12.7 % (11.6-15.6); WHITE BLOOD COUNT 6.2 K/mm3 (4.0-10.0)
[2019-09-29 10:05] LABS: BLOOD UREA NITROGEN 5.4 mg/dL (7-18); CALCIUM 9.3 mg/dL (8.5-10.1); CREATININE 0.3 mg/dL (0.55-1.3); MAGNESIUM 2.2 mg/dL (1.8-2.4); PHOSPHOROUS 3.8 mg/dL (2.5-4.9); POTASSIUM 3.8 mmol/L (3.5-5.1)
[2019-09-29] MEDS: AMOX TR/POTASSIUM CLAVULANATE 250 MG/5 ML BOTTLE GT SCH ×3 (10:21→17:22)
[2019-09-29] MEDS: HEPARIN NA (PORCINE) 5,000 UNITS/ML 1ML VIAL SQ SCH (10:21)
--- NOTE | 2019-09-29 16:16 | DS ---
Physical Exam: SUBJECTIVE: Patient seen and examined, in no obvious distress, awake, resting comfortably (non verbal at baseline). OBJECTIVE: Vital Signs Period Temp Pulse Resp BP Sys/Kent Pulse Ox Last 24 Hr 97.4 F-98.5 F 64-90 - 96-137/58-74 96 Vital Signs Temp 98.2 F 09/29/19 16:39 Pulse 90 09/29/19 16:39 Resp 18 09/29/19 16:39 BP 106/56 L 09/29/19 16:39 Pulse Ox 96 09/29/19 16:44 Intake & Output 09/28/19 09/29/19 09/29/19 23:59 11:59 23:59 Intake Total 0 200 Balance 0 200 Intake: Oral 0 Tube Feeding 100 Tube Irrigant 100 Other: Voiding Method Incontinent Incontinent # Unmeasured Voids Void 4 2 Bowel Movement No No # Bowel Movements 1 Weight Measurement Method Built in [facility] PHYSICAL EXAM GENERAL: The patient is awake, in no acute distress, contracted. HEAD: macrocephalic. ENT: moist mucous membranes. LUNGS: Breath sounds reduced globally, no wheezes, no crackles, no accessory muscle use. HEART: Regular rate and rhythm, S1, S2 ABDOMEN: Soft, PEG tube present EXTREMITIES: 2+ pulses, contracted NEUROLOGICAL:Awake, nonverbal at baseline LABS Laboratory Results - last 24 hr 09/28/19 09/28/19 09/28/19 17:42 19:16 19:16 WBC 8.1 RBC 4.86 Hgb 15.4 H Hct 45.6 H MCV 93.7 MCH 31.6 MCHC 33.7 RDW 12.9 Plt Count 246 MPV 8.6 Absolute Neuts (auto) 5.3 Neutrophils % 65.6 Lymphocytes % 20.7 D Monocytes % 10.3 H Eosinophils % 2.8 Basophils % 0.6 Nucleated RBC % 0 Sodium 136 Potassium 3.9 Chloride 98 Carbon Dioxide 33 H Anion Gap 5 L BUN 3.9 L Creatinine 0.2 L Est GFR (CKD-EPI)AfAm 180.58 Est GFR (CKD-EPI)NonAf 155.80 POC Glucometer 122 Random Glucose 98 Calcium 8.9 Phosphorus 2.9 Magnesium 2.0 09/28/19 09/29/19 09/29/19 21:07 07:09 08:55 WBC 6.2 RBC 4.72 Hgb 15.0 Hct 43.7 MCV 92.6 MCH 31.8 MCHC 34.3 RDW 12.7 Plt Count 225 MPV 8.5 Absolute Neuts (auto) Neutrophils % Lymphocytes % Monocytes % Eosinophils % Basophils % Nucleated RBC % Sodium Potassium Chloride Carbon Dioxide Anion Gap BUN Creatinine Est GFR (CKD-EPI)AfAm Est GFR (CKD-EPI)NonAf POC Glucometer 116 110 Random Glucose Calcium Phosphorus Magnesium 09/29/19 09/29/19 08:55 12:05 WBC RBC Hgb Hct MCV MCH MCHC RDW Plt Count MPV Absolute Neuts (auto) Neutrophils % Lymphocytes % Monocytes % Eosinophils % Basophils % Nucleated RBC % Sodium 136 Potassium 3.8 Chloride 96 L Carbon Dioxide 36 H Anion Gap 4 L BUN 5.4 L Creatinine 0.3 L Est GFR (CKD-EPI)AfAm 158.03 Est GFR (CKD-EPI)NonAf 136.35 POC Glucometer 113 Random Glucose 104 Calcium 9.3 Phosphorus 3.8 Magnesium 2.2 Microbiology 09/24/19 21:48 Blood - Peripheral Venous Blood Culture - Preliminary NO GROWTH OBTAINED AFTER 96 HOURS, INCUBATION TO CONTINUE FOR 1 DAYS. 09/24/19 21:48 Blood - Peripheral Venous Blood Culture - Preliminary NO GROWTH OBTAINED AFTER 96 HOURS, INCUBATION TO CONTINUE FOR 1 DAYS. 09/24/19 23:10 Urine - Urine - Catheterized Urine Culture - Final Enterococcus Faecalis Strep Agalactiae Group B 09/26/19 10:30 Sputum - Oropharynx Suctioned Sputum Gram Stain - Final 09/26/19 10:30 Sputum - Oropharynx Suctioned Sputum Sputum Culture - Final Citrobacter Koseri 09/25/19 00:56 Urine - Urine - Catheterized Legionella Antigen - Final 09/25/19 00:56 Urine - Urine - Catheterized Streptococcus pneumoniae Antigen (M - Final CXR: 09/24/19:Possible R infiltrate suggestive of PNA HOSPITAL COURSE: Date of Admission:09/24/19 Date of Discharge: 09/29/19 Pt is a 48 yo F with a PMHx of cerebral palsy, hydrocephalus, epilepsy, severe mental retardation, quadriplegia, type 2 DM, CHF, pacemaker, G-tube, scoliosis who was sent to the ED from [place] for fever and cough. Pt was admitted for acute hypoxic respiratory failure and sepsis secondary to aspiration PNA and was treated initially with zosyn then transitioned to GT augmentin for a total of 10 days. She improved and was weaned off oxygen. She continued her home medications and was transferred back to [place]. Minutes to complete discharge: 40 Discharge Summary Problems reviewed: Yes Reason For Visit: PNEUMONIA Current Active Problems Pneumonia (Acute) Condition: Improved - Instructions Diet, Activity, Other Instructions: You came in for sepsis and was found to have possible aspiration pneumonia and a urinary tract infection You have been on antibiotic: Continue augmentin via GT for the next 4 days Continue other medications as prescribed Follow up with your primary doctor Aspiration precautions If you think the symptoms are not getting better with worsening fever, shortness of breath, please return to the nearest emergency department Referrals: Miguel Devine Jr [Non Staff, Medical] - 1 Week Disposition: HOME - Home Medications Comprehensive Discharge Medication List: Ambulatory Orders Magnesium Hydrox 2400MG/30Ml [Milk Of Magnesia] 30 ml PEG DAILY 01/11/15 Silver Sulfadiaz/Foam Bandage [Allevyn Ag Dressing 4"X4"] 1 each TP DAILY Ipratropium/Albuterol Sulfate [Iprat-Albut 0.5-3(2.5) mg/3 ml] 1 unit IH PRN PRN 01/12/15 Sennosides [Senna -] 3 tab GT BID 01/12/15 Scopolamine Hydrobromide [Transderm-Scop -] 1 patch TD Q72H patch.td72 Multivit-Minerals [Certavite-Antioxidant Liquid] 15 ml PO HS 09/25/19 Potassium Citrate/Citric Acid [Cytra-K Crystals Packet] 1 each PO HS 09/25/19 Protein Supplement [Promod] 946 ml GT DAILY 09/25/19 Amox-Tr/K Cl [Augmentin Suspension -] 500 mg GT TIDCM 5 Days #180 ml 09/29/19 This patient is new to me today: Yes Date on this admission: 09/29/19 Emergency Visit: Yes ED Registration Date: 09/24/19 Care time: The patient presented to the Emergency Department on the above date and was hospitalized for further evaluation of their emergent condition. Critical Care patient: No - Discharge Referral Referred to [facility] Med P.C.: No ATTENDING PHYSICIAN STATEMENT I saw and evaluated the patient. I reviewed the resident's note and discussed the case with the resident. I agree with the resident's findings and plan as documented. SUBJECTIVE: OBJECTIVE: ASSESSMENT AND PLAN:
[2019-09-29 16:43] VITALS: BP 106/56; PULSE 90; TEMP 98.2
--- NOTE | 2019-09-29 19:12 | PN ---
Teaching Attending Note Name of Resident: Betty Wood ATTENDING PHYSICIAN STATEMENT I saw and evaluated the patient. I reviewed the resident's note and discussed the case with the resident. I agree with the resident's findings and plan as documented. SUBJECTIVE: Patient appears comfortable. OBJECTIVE: Vital Signs Period Temp Pulse Resp BP Sys/Kent Pulse Ox Last 24 Hr 97.4 F-98.5 F 64-90 15-20 96-137/56-74 96-96 GENERAL: The patient is awake, alert, and in no acute distress. LUNGS: Breath sounds equal, few rhonchi, no wheezes, no accessory muscle use. HEART: Regular rate and rhythm, S1, S2 without murmur, rub or gallop. ABDOMEN: Soft, nondistended, normoactive bowel sounds, no hepatosplenomegaly, no masses, G-tube in place EXTREMITIES: 2+ pulses, warm, well-perfused, no edema, contracted. Laboratory Results - last 24 hr 09/28/19 09/28/19 09/28/19 19:16 19:16 21:07 WBC 8.1 RBC 4.86 Hgb 15.4 H Hct 45.6 H MCV 93.7 MCH 31.6 MCHC 33.7 RDW 12.9 Plt Count 246 MPV 8.6 Absolute Neuts (auto) 5.3 Neutrophils % 65.6 Lymphocytes % 20.7 D Monocytes % 10.3 H Eosinophils % 2.8 Basophils % 0.6 Nucleated RBC % 0 Sodium 136 Potassium 3.9 Chloride 98 Carbon Dioxide 33 H Anion Gap 5 L BUN 3.9 L Creatinine 0.2 L Est GFR (CKD-EPI)AfAm 180.58 Est GFR (CKD-EPI)NonAf 155.80 POC Glucometer 116 Random Glucose 98 Calcium 8.9 Phosphorus 2.9 Magnesium 2.0 09/29/19 09/29/19 09/29/19 07:09 08:55 08:55 WBC 6.2 RBC 4.72 Hgb 15.0 Hct 43.7 MCV 92.6 MCH 31.8 MCHC 34.3 RDW 12.7 Plt Count 225 MPV 8.5 Absolute Neuts (auto) Neutrophils % Lymphocytes % Monocytes % Eosinophils % Basophils % Nucleated RBC % Sodium 136 Potassium 3.8 Chloride 96 L Carbon Dioxide 36 H Anion Gap 4 L BUN 5.4 L Creatinine 0.3 L Est GFR (CKD-EPI)AfAm 158.03 Est GFR (CKD-EPI)NonAf 136.35 POC Glucometer 110 Random Glucose 104 Calcium 9.3 Phosphorus 3.8 Magnesium 2.2 09/29/19 12:05 WBC RBC Hgb Hct MCV MCH MCHC RDW Plt Count MPV Absolute Neuts (auto) Neutrophils % Lymphocytes % Monocytes % Eosinophils % Basophils % Nucleated RBC % Sodium Potassium Chloride Carbon Dioxide Anion Gap BUN Creatinine Est GFR (CKD-EPI)AfAm Est GFR (CKD-EPI)NonAf POC Glucometer 113 Random Glucose Calcium Phosphorus Magnesium ASSESSMENT AND PLAN: This is a 48 year old woman with a history of cerebral palsy, hydrocephalus, epilepsy, severe mental retardation, quadriplegia, type 2 DM, CHF, pacemaker, G- tube, scoliosis who was sent to the ED from [place] for fever and cough. 1. Sepsis (tachycardia, tachypnea, leukocytosis) secondary to aspiration pneumonia - Continue Augmentin via G-tube (day 6 of antibiotics) 2. Acute hypoxic respiratory failure - Continue oxygen as needed to keep saturation >90% 3. Hyponatremia - Improved 4. Hypokalemia - Improved 5. Type 2 DM - Continue Novolog sliding scale 6. Cerebral palsy 7. Severe MR 8. Quadriplegia 9. History of CHF - No evidence of acute heart failure 10. Epilepsy 11. Hydrocephalus 12. History of pacemaker 13. Stage I sacral pressure ulcer - Continue wound care 14. Nutrition - Tolerating Jevity 1.5 via G-tube 15. Disposition - Ok for discharge to [place]
== END 2019-09-29 17:52 | disposition home or self-care (01) | DRG 871 ==
LOC: JER 20:18 → JERBED 22:42 → J8W 09-25 18:23
PROVIDERS: ADMIT Internal Medicine; ATTEND Internal Medicine
DX: A41.59 Other Gram-negative sepsis (principal); J69.0 Pneumonitis due to inhalation of food and vomit; G82.50 Quadriplegia, unspecified; E87.1 Hypo-osmolality and hyponatremia; F72 Severe intellectual disabilities; E11.9 Type 2 diabetes mellitus without complications; L89.151 Pressure ulcer of sacral region, stage 1; E87.6 Hypokalemia; G40.909 Epilepsy, unspecified, not intractable, without status epilepticus; M41.9 Scoliosis, unspecified; Z95.0 Presence of cardiac pacemaker; Z91.5 Personal history of self-harm; Z87.09 Personal history of other diseases of the respiratory system
CPT/HCPCS: 36415; 71045-TC-FY; 80048; 80053; 81003; 82436; 82565; 82803; 82962; 83036; 83605; 83735; 83930; 83935; 84100; 84133; 84300; 84484; 85025; 85027; 85610; 85730; 87040; 87070; 87086; 87186; 87205; 87804; 87807; 87899; 93005; 93010; 99285-25; J1644; J7030

== ENCOUNTER 2020-11-23 19:15 | Inpatient (IN) | payer OTHER ==
[2020-11-23] MEDS ORDERED: ACETAMINOPHEN 1000 MG/100 ML VIAL (NON FORMULARY) IVPB ONE (20:14)
[2020-11-23] MEDS ORDERED: SODIUM CHLORIDE 750 ML IV ONE (20:14)
[2020-11-23] MEDS ORDERED: CEFTRIAXONE 1,000 MG in DEXTROSE 5%-WATER - 50 ML IVPB ONE (20:36)
[2020-11-23] MEDS ORDERED: PIPERACILLIN/TAZOB 4.5 GM 4.5 GM in DEXTROSE 5%-WATER 100 ML IVPB ONE (20:36)
[2020-11-23] MEDS ORDERED: PIPERACILLIN/TAZOB 4.5 GM 4.5 GM/100 ML BAG IVPB ONE (20:43)
[2020-11-23] MEDS ORDERED: ACETAMINOPHEN INJECTION 100 ML IVPB ONE (20:43)
[2020-11-23 20:54] LABS: BASO % 0.6 % (0-2.0); EOS % 1.3 % (0-4.5); HEMATOCRIT 47.2 % (32.4-45.2); LYMPH % 18.4 % (8-40); MCH 31.6 pg (25.7-33.7); MONO % 10.9 % (3.8-10.2); NEUT % 68.8 % (42.8-82.8); PLATELET COUNT 230 K/MM3 (134-434); RBC 5.07 M/mm3 (3.60-5.2); RDW 13.6 % (11.6-15.6); VENOUS BASE EXCESS 6.8 mmol/L (-2-2); VENOUS O2 SATURATION 83.5 % (70-80); VENOUS PCO2 60.7 mmHg (38-52); VENOUS PH 7.373 (7.310-7.410); WHITE BLOOD COUNT 6.9 K/mm3 (4.0-10.0)
[2020-11-23 21:02] LABS: INR 1.05 (0.83-1.09); PROTHROMBIN TIME (PATIENT) 12.9 SEC (9.7-13.0)
[2020-11-23 21:04] LABS: ACTIVATED PTT 36.1 SECONDS (25.2-36.5)
[2020-11-23 21:13] LABS: CHLORIDE 96 mmol/L (98-107); SODIUM 135 mmol/L (136-145)
[2020-11-23 21:15] LABS: ANION GAP 3 MMOL/L (8-16); BLOOD UREA NITROGEN 18.6 mg/dL (7-18); CALCIUM 9.2 mg/dL (8.5-10.1); CO2 36 mmol/L (21-32)
[2020-11-23 21:16] LABS: GLUCOSE,RANDOM 109 mg/dL (74-106)
[2020-11-23 21:18] LABS: SGPT/ALT 25 U/L (13-61)
[2020-11-23 21:19] LABS: CREATININE 0.3 mg/dL (0.55-1.3)
[2020-11-23 21:20] LABS: BILIRUBIN,TOTAL 0.6 mg/dL (0.2-1); SGOT/AST 32 U/L (15-37); TOT PROT 8.1 g/dl (6.4-8.2)
[2020-11-23 21:21] LABS: ALK PHOS 129 U/L (45-117)
[2020-11-23 21:24] LABS: EPI CELLS >36 /uL (0-25.1); HYALINE CASTS 6 /uL (0-3.1); PH,URINE 7.5 (5.0-8.0); URINE APPEARANCE TURBID; URINE BACTERIA 462 /uL (0-1359); URINE BILIRUBIN NEGATIVE (NEGATIVE); URINE COLOR DK YELLOW; URINE GLUCOSE (UA) NEGATIVE (NEGATIVE); URINE KETONE NEGATIVE (NEGATIVE); URINE LEUK ESTERASE 2+ (NEGATIVE); URINE NITRITE NEGATIVE (NEGATIVE); URINE PROTEIN 1+ (NEGATIVE); URINE RBC 6481 /uL (0-23.9); URINE UROBILINOGEN 0.2 mg/dL (0.2-1.0); URINE WBC 166 /uL (0-25.8)
[2020-11-23] MEDS ORDERED: DEXTROSE 5% IVPB ONE (21:39)
[2020-11-23] MEDS ORDERED: VANCOMYCIN HCL IVPB ONE (21:39)
[2020-11-23] MEDS ORDERED: WATER IVPB ONE (21:39)
[2020-11-23] MEDS ORDERED: VANCOMYCIN 500 MG VIAL (RESTRICTED TO ID ONLY) ONE (21:45)
[2020-11-23 23:53] LABS: CALCIUM 8.2 mg/dL (8.5-10.1)
[2020-11-23 23:54] LABS: BLOOD UREA NITROGEN 15.4 mg/dL (7-18)
[2020-11-23 23:57] LABS: CREATININE 0.3 mg/dL (0.55-1.3)
[2020-11-24] MEDS ORDERED: PIPERACILLIN/TAZOB 3.375 GM 3.375 GM/50 ML BAG IVPB ONE ×2 (03:36→09:44)
[2020-11-24] MEDS: PIPERACILLIN/TAZOB 3.375 GM 3.375 GM in DEXTROSE 5%-WATER - 50 ML IVPB SCH ×3 (03:46→17:59)
[2020-11-24] MEDS: SCOPOLAMINE HYDROBROMIDE 1 PATCH PATCH.TD72 TD SCH (06:40)
[2020-11-24] MEDS: INSULIN SLIDING SCALE (NOVOLOG) 1 VIAL SQ SCH ×4 (06:40→22:13)
[2020-11-24 08:02] LABS: HEMATOCRIT 44.3 % (32.4-45.2); HEMOGLOBIN 14.8 GM/dL (10.7-15.3); MCHC 33.5 g/dl (32.0-36.0); MEAN CELL VOLUME 95.5 fl (80-96); PLATELET COUNT 186 K/MM3 (134-434); RBC 4.64 M/mm3 (3.60-5.2); RDW 13.3 % (11.6-15.6); WHITE BLOOD COUNT 4.8 K/mm3 (4.0-10.0)
[2020-11-24 08:11] LABS: ALBUMIN 3.6 g/dl (3.4-5.0); BLOOD UREA NITROGEN 10.8 mg/dL (7-18); CALCIUM 8.4 mg/dL (8.5-10.1); MAGNESIUM 2.1 mg/dL (1.8-2.4)
[2020-11-24 08:15] LABS: CREATININE 0.2 mg/dL (0.55-1.3); PHOSPHOROUS 4.6 mg/dL (2.5-4.9)
[2020-11-24 08:16] LABS: BILIRUBIN,TOTAL 0.8 mg/dL (0.2-1); TOT PROT 6.8 g/dl (6.4-8.2)
[2020-11-24] MEDS ORDERED: ENOXAPARIN NA (PORCINE) 40 MG/0.4 ML DISP.SYRIN SQ ONE (09:43)
[2020-11-24] MEDS: SENNOSIDES 8.8 MG/5 ML BULK BOTTLE GT SCH ×2 (09:55→22:10)
[2020-11-24] MEDS ORDERED: ENOXAPARIN NA (PORCINE) 40 MG/0.4 ML DISP.SYRIN SQ SCH ×2 (10:00→15:00)
[2020-11-24] MEDS ORDERED: ALBUTEROL SO4 2.5/IPRATROPIUM 0.5 INH SOL 3 ML VIAL.NEB. NEB PRN (15:47)
[2020-11-24] MEDS ORDERED: FLU VACCINE (FLULAVAL) PF 60 MCG/0.5 ML SYRINGE 2020-2021 IM ONE (17:00)
[2020-11-24] MEDS ORDERED: DEXTROSE 5%-WATER - 50 ML IVPB ONE (17:24)
[2020-11-24] MEDS ORDERED: PIPERACILLIN/TAZOBACTAM 3.375 GM VIAL IVPB ONE (17:24)
[2020-11-24] MEDS ORDERED: PT OWN MED DRAWER 7, Y5N ONE (21:29)
[2020-11-24] MEDS: MULTIVIT-MINERALS ORAL LIQUID PO SCH (22:08)
[2020-11-25] MEDS ORDERED: PIPERACILLIN/TAZOBACTAM 3.375 GM VIAL IVPB ONE ×3 (00:46→17:02)
[2020-11-25] MEDS ORDERED: DEXTROSE 5%-WATER - 50 ML IVPB ONE ×3 (00:46→17:02)
[2020-11-25] MEDS: PIPERACILLIN/TAZOB 3.375 GM 3.375 GM in DEXTROSE 5%-WATER - 50 ML IVPB SCH ×3 (01:32→18:14)
[2020-11-25] MEDS: INSULIN SLIDING SCALE (NOVOLOG) 1 VIAL SQ SCH ×4 (06:15→21:41)
[2020-11-25] MEDS ORDERED: ALBUTEROL SO4 2.5/IPRATROPIUM 0.5 INH SOL 3 ML VIAL.NEB. NEB PRN (07:21)
[2020-11-25] MEDS ORDERED: PT OWN MED DRAWER 7, Y5N ONE ×4 (09:14→20:55)
[2020-11-25] MEDS: SENNOSIDES 8.8 MG/5 ML BULK BOTTLE GT SCH ×2 (09:27→21:41)
[2020-11-25] MEDS: ENOXAPARIN NA (PORCINE) 30 MG/0.3 ML DISP.SYRIN SQ SCH (09:29)
[2020-11-25 09:57] LABS: HEMATOCRIT 45.6 % (32.4-45.2); HEMOGLOBIN 15.4 GM/dL (10.7-15.3); MCHC 33.8 g/dl (32.0-36.0); MEAN CELL VOLUME 94.6 fl (80-96); PLATELET COUNT 200 K/MM3 (134-434); RBC 4.82 M/mm3 (3.60-5.2); RDW 13.2 % (11.6-15.6); WHITE BLOOD COUNT 7.2 K/mm3 (4.0-10.0)
[2020-11-25] MEDS ORDERED: ENOXAPARIN NA (PORCINE) 40 MG/0.4 ML DISP.SYRIN SQ SCH (10:00)
[2020-11-25 10:45] LABS: ALBUMIN 3.9 g/dl (3.4-5.0); CALCIUM 9.3 mg/dL (8.5-10.1); MAGNESIUM 2.3 mg/dL (1.8-2.4)
[2020-11-25 10:48] LABS: CREATININE 0.3 mg/dL (0.55-1.3); PHOSPHOROUS 4.2 mg/dL (2.5-4.9)
[2020-11-25 10:50] LABS: BILIRUBIN,TOTAL 0.9 mg/dL (0.2-1); TOT PROT 7.5 g/dl (6.4-8.2)
[2020-11-25] MEDS ORDERED: VANCOMYCIN 500 MG in DEXTROSE 5%-WATER - 100 ML IVPB ONE (11:00)
[2020-11-25 15:51] VITALS: BMI 24.3
[2020-11-25] MEDS: MULTIVIT-MINERALS ORAL LIQUID PO SCH (21:41)
[2020-11-26] MEDS ORDERED: DEXTROSE 5%-WATER - 50 ML IVPB ONE ×3 (02:03→17:13)
[2020-11-26] MEDS ORDERED: PIPERACILLIN/TAZOBACTAM 3.375 GM VIAL IVPB ONE ×3 (02:03→17:13)
[2020-11-26] MEDS: PIPERACILLIN/TAZOB 3.375 GM 3.375 GM in DEXTROSE 5%-WATER - 50 ML IVPB SCH ×3 (02:58→18:17)
[2020-11-26] MEDS: INSULIN SLIDING SCALE (NOVOLOG) 1 VIAL SQ SCH ×4 (06:43→21:56)
[2020-11-26 08:31] LABS: HEMATOCRIT 40.1 % (32.4-45.2); HEMOGLOBIN 13.5 GM/dL (10.7-15.3); MCH 32.3 pg (25.7-33.7); MCHC 33.6 g/dl (32.0-36.0); MEAN CELL VOLUME 95.9 fl (80-96); MEAN PLT VOLUME 8.7 fl (7.5-11.1); PLATELET COUNT 171 K/MM3 (134-434); RBC 4.19 M/mm3 (3.60-5.2); RDW 13.3 % (11.6-15.6); WHITE BLOOD COUNT 5.4 K/mm3 (4.0-10.0)
[2020-11-26 08:57] LABS: ALBUMIN 3.2 g/dl (3.4-5.0); BLOOD UREA NITROGEN 7.7 mg/dL (7-18); CALCIUM 9.2 mg/dL (8.5-10.1); MAGNESIUM 2.5 mg/dL (1.8-2.4)
[2020-11-26 09:00] LABS: CREATININE 0.3 mg/dL (0.55-1.3)
[2020-11-26 09:02] LABS: BILIRUBIN,TOTAL 0.4 mg/dL (0.2-1); TOT PROT 6.4 g/dl (6.4-8.2)
[2020-11-26] MEDS: ENOXAPARIN NA (PORCINE) 30 MG/0.3 ML DISP.SYRIN SQ SCH (10:39)
[2020-11-26] MEDS: SENNOSIDES 8.8 MG/5 ML BULK BOTTLE GT SCH ×2 (10:39→21:56)
[2020-11-26] MEDS: MULTIVIT-MINERALS ORAL LIQUID PO SCH (21:56)
[2020-11-27] MEDS ORDERED: DEXTROSE 5%-WATER - 50 ML IVPB ONE ×3 (01:21→16:56)
[2020-11-27] MEDS ORDERED: PIPERACILLIN/TAZOBACTAM 3.375 GM VIAL IVPB ONE ×3 (01:21→16:56)
[2020-11-27] MEDS: PIPERACILLIN/TAZOB 3.375 GM 3.375 GM in DEXTROSE 5%-WATER - 50 ML IVPB SCH ×3 (02:50→17:31)
[2020-11-27] MEDS: SCOPOLAMINE HYDROBROMIDE 1 PATCH PATCH.TD72 TD SCH (06:21)
[2020-11-27] MEDS: INSULIN SLIDING SCALE (NOVOLOG) 1 VIAL SQ SCH ×4 (06:22→21:46)
[2020-11-27 09:30] LABS: HEMATOCRIT 42.9 % (32.4-45.2); HEMOGLOBIN 14.6 GM/dL (10.7-15.3); MCH 32.1 pg (25.7-33.7); MCHC 34.1 g/dl (32.0-36.0); MEAN CELL VOLUME 94.2 fl (80-96); MEAN PLT VOLUME 8.4 fl (7.5-11.1); PLATELET COUNT 200 K/MM3 (134-434); RBC 4.55 M/mm3 (3.60-5.2); RDW 13.3 % (11.6-15.6); WHITE BLOOD COUNT 8.6 K/mm3 (4.0-10.0)
[2020-11-27 10:16] LABS: CALCIUM 9.5 mg/dL (8.5-10.1)
[2020-11-27 10:17] LABS: ALBUMIN 3.6 g/dl (3.4-5.0)
[2020-11-27 10:19] LABS: BLOOD UREA NITROGEN 9.4 mg/dL (7-18); CREATININE 0.3 mg/dL (0.55-1.3); MAGNESIUM 2.5 mg/dL (1.8-2.4); PHOSPHOROUS 4.2 mg/dL (2.5-4.9)
[2020-11-27 10:21] LABS: BILIRUBIN,TOTAL 0.5 mg/dL (0.2-1)
[2020-11-27] MEDS: ENOXAPARIN NA (PORCINE) 30 MG/0.3 ML DISP.SYRIN SQ SCH (11:03)
[2020-11-27] MEDS: SENNOSIDES 8.8 MG/5 ML BULK BOTTLE GT SCH ×2 (11:03→21:43)
[2020-11-27] MEDS ORDERED: AMOX TR/POTASSIUM CLAVULANATE 600 MG/5 ML PO SCH (18:30)
[2020-11-27] MEDS: MULTIVIT-MINERALS ORAL LIQUID PO SCH (21:43)
[2020-11-28] MEDS: INSULIN SLIDING SCALE (NOVOLOG) 1 VIAL SQ SCH ×4 (06:01→22:26)
[2020-11-28] MEDS ORDERED: PT OWN MED DRAWER 7, Y5N ONE (09:02)
[2020-11-28] MEDS: ENOXAPARIN NA (PORCINE) 30 MG/0.3 ML DISP.SYRIN SQ SCH (09:19)
[2020-11-28] MEDS: SENNOSIDES 8.8 MG/5 ML BULK BOTTLE GT SCH ×2 (09:19→21:25)
[2020-11-28] MEDS: AMOX TR/POTASSIUM CLAVULANATE 600 MG/5 ML PO SCH ×2 (09:20→16:51)
[2020-11-28] MEDS: MULTIVIT-MINERALS ORAL LIQUID PO SCH (21:26)
[2020-11-29] MEDS: INSULIN SLIDING SCALE (NOVOLOG) 1 VIAL SQ SCH ×3 (06:01→17:46)
[2020-11-29 10:43] LABS: HEMATOCRIT 45.6 % (32.4-45.2); HEMOGLOBIN 15.5 GM/dL (10.7-15.3); MCH 32.3 pg (25.7-33.7); MCHC 34.1 g/dl (32.0-36.0); MEAN CELL VOLUME 94.7 fl (80-96); MEAN PLT VOLUME 9.3 fl (7.5-11.1); PLATELET COUNT 139 K/MM3 (134-434); RBC 4.81 M/mm3 (3.60-5.2); RDW 13.1 % (11.6-15.6); WHITE BLOOD COUNT 6.4 K/mm3 (4.0-10.0)
[2020-11-29 11:00] LABS: BLOOD UREA NITROGEN 11.8 mg/dL (7-18); CALCIUM 9.4 mg/dL (8.5-10.1); MAGNESIUM 2.3 mg/dL (1.8-2.4)
[2020-11-29 11:03] LABS: CREATININE 0.2 mg/dL (0.55-1.3)
[2020-11-29 11:04] LABS: PHOSPHOROUS 4.2 mg/dL (2.5-4.9)
[2020-11-29] MEDS ORDERED: PT OWN MED DRAWER 7, Y5N ONE (11:17)
[2020-11-29] MEDS: ENOXAPARIN NA (PORCINE) 30 MG/0.3 ML DISP.SYRIN SQ SCH (11:36)
[2020-11-29] MEDS: SENNOSIDES 8.8 MG/5 ML BULK BOTTLE GT SCH (11:37)
[2020-11-29] MEDS: AMOX TR/POTASSIUM CLAVULANATE 600 MG/5 ML PO SCH ×2 (12:38→17:25)
[2020-11-29 19:01] VITALS: BP 126/86; PULSE 102; TEMP 98.8
== END 2020-11-29 18:40 | disposition home or self-care (01) | DRG 177 ==
LOC: JER 19:15 → JERBED 20:39 → J5S 11-24 11:28
PROVIDERS: ADMIT Hospitalist; ATTEND Internal Medicine
DX: J69.0 Pneumonitis due to inhalation of food and vomit (principal); L89.313 Pressure ulcer of right buttock, stage 3; R53.2 Functional quadriplegia; N39.0 Urinary tract infection, site not specified; E87.2 Acidosis; Z93.1 Gastrostomy status; D72.819 Decreased white blood cell count, unspecified; F79 Unspecified intellectual disabilities
CPT/HCPCS: 36415; 71045-TC-FY; 74018-TC-FY; 80048; 80053; 81003; 82803; 82962; 83605; 83735; 84100; 84484; 85025; 85027; 85610; 85730; 87040; 87086; 87804; 87899; 93005; 93010; 94640; 99285-25; C9803; J0131; U0003; U0005

== ENCOUNTER 2020-11-30 08:46 | Observation (INO) | payer OTHER ==
[2020-11-30 10:59] LABS: VENOUS BASE EXCESS 3.9 mmol/L (-2-2); VENOUS O2 SATURATION 53.3 % (70-80); VENOUS PH 7.244 (7.310-7.410)
[2020-11-30 11:02] LABS: VENOUS PCO2 82.9 mmHg (38-52)
[2020-11-30 11:03] LABS: BASO % 0.5 % (0-2.0); EOS % 2.4 % (0-4.5); HEMOGLOBIN 16.1 GM/dL (10.7-15.3); LYMPH % 25.7 % (8-40); MCH 31.7 pg (25.7-33.7); MCHC 33.5 g/dl (32.0-36.0); MEAN CELL VOLUME 94.8 fl (80-96); MONO % 8.9 % (3.8-10.2); NEUT % 62.5 % (42.8-82.8); PLATELET COUNT 165 K/MM3 (134-434); RBC 5.06 M/mm3 (3.60-5.2); RDW 13.3 % (11.6-15.6); WHITE BLOOD COUNT 5.2 K/mm3 (4.0-10.0)
[2020-11-30 11:16] LABS: ALBUMIN 4.2 g/dl (3.4-5.0); BLOOD UREA NITROGEN 16.9 mg/dL (7-18); CALCIUM 10.1 mg/dL (8.5-10.1)
[2020-11-30 11:19] LABS: CREATININE 0.3 mg/dL (0.55-1.3)
[2020-11-30 11:21] LABS: BILIRUBIN,TOTAL 0.7 mg/dL (0.2-1); TOT PROT 8.3 g/dl (6.4-8.2)
[2020-11-30 13:30] LABS: ARTERIAL BLD GAS O2 SATURATION 96.5 mmHg (95-98); ARTERIAL BLOOD GAS BASE EXCESS 5.4 mmol/L (-2-2); ARTERIAL BLOOD GAS PO2 90.1 mmHg (80-100); ARTERIAL BLOOD GAS pH 7.373 (7.350-7.450)
[2020-11-30] MEDS ORDERED: SODIUM CHLORIDE 1,000 ML IV SCH ×2 (19:00→23:26)
[2020-11-30] MEDS: AMOX TR/POTASSIUM CLAVULANATE 125 MG/5 ML BOTTLE 75ML PO SCH (19:45)
[2020-11-30] MEDS ORDERED: ALBUTEROL SO4 2.5/IPRATROPIUM 0.5 INH SOL 3 ML VIAL.NEB. NEB PRN (23:32)
[2020-11-30] MEDS ORDERED: SCOPOLAMINE HYDROBROMIDE 1 PATCH PATCH.TD72 TD SCH (23:45)
[2020-12-01 08:03] LABS: BASO % 0.8 % (0-2.0); EOS % 3.8 % (0-4.5); HEMATOCRIT 43.1 % (32.4-45.2); HEMOGLOBIN 14.7 GM/dL (10.7-15.3); LYMPH % 29.6 % (8-40); MCH 32.2 pg (25.7-33.7); MCHC 34.1 g/dl (32.0-36.0); MEAN CELL VOLUME 94.2 fl (80-96); MEAN PLT VOLUME 9.3 fl (7.5-11.1); MONO % 9.4 % (3.8-10.2); NEUT % 56.4 % (42.8-82.8); PLATELET COUNT 183 K/MM3 (134-434); RBC 4.57 M/mm3 (3.60-5.2); RDW 13.3 % (11.6-15.6); WHITE BLOOD COUNT 5.9 K/mm3 (4.0-10.0)
[2020-12-01 08:30] LABS: CALCIUM 9.3 mg/dL (8.5-10.1)
[2020-12-01 08:31] LABS: MAGNESIUM 2.2 mg/dL (1.8-2.4)
[2020-12-01 08:34] LABS: CREATININE 0.3 mg/dL (0.55-1.3)
[2020-12-01 08:35] LABS: PHOSPHOROUS 3.4 mg/dL (2.5-4.9)
[2020-12-01] MEDS: SENNOSIDES 8.6MG TABLET (FP) PO SCH ×2 (09:24→21:08)
[2020-12-01] MEDS: AMOX TR/POTASSIUM CLAVULANATE 125 MG/5 ML BOTTLE 75ML PO SCH (12:16)
[2020-12-01] MEDS ORDERED: PT OWN MED DRAWER 7, Y5N ONE (20:29)
[2020-12-01] MEDS ORDERED: MULTIVIT-MINERALS ORAL LIQUID PO SCH (22:00)
[2020-12-02] MEDS: SENNOSIDES 8.6MG TABLET (FP) PO SCH (09:53)
[2020-12-02 14:41] VITALS: BMI 28.8
[2020-12-02 15:04] VITALS: BP 109/73; TEMP 97.2
[2020-12-02 15:39] VITALS: PULSE 99
== END 2020-12-02 16:26 | disposition home or self-care (01) ==
LOC: JER 08:46 → JERBED 16:13 → J7W 12-01 00:20
PROVIDERS: ADMIT Internal Medicine; ATTEND Student in an Organized Health Care Education/Training Program
PROC: 3E0337Z Introduction of Electrolytic and Water Balance Substance into Peripheral Vein, Percutaneous Approach (ICD-10-PCS; principal; 2020-11-30)
DX: J96.91 Respiratory failure, unspecified with hypoxia (principal); G80.9 Cerebral palsy, unspecified; Z87.01 Personal history of pneumonia (recurrent); E87.2 Acidosis; R53.2 Functional quadriplegia; Z29.9 Encounter for prophylactic measures, unspecified; G40.909 Epilepsy, unspecified, not intractable, without status epilepticus; G91.9 Hydrocephalus, unspecified; I50.9 Heart failure, unspecified; Z95.0 Presence of cardiac pacemaker; E11.9 Type 2 diabetes mellitus without complications; Z99.81 Dependence on supplemental oxygen
CPT/HCPCS: 36415; 36600; 71045-TC-FY; 80048; 80053; 82803; 83735; 84100; 85025; 93005; 93010; 94761; 96360; 99285-25; C9803; G0378; U0003; U0005

== ENCOUNTER 2021-01-21 12:47 | Inpatient (IN) | payer OTHER ==
[2021-01-21] MEDS ORDERED: SODIUM CHLORIDE IV ONE (13:35)
[2021-01-21 15:04] LABS: BASO % 0.5 % (0-2.0); EOS % 0.4 % (0-4.5); HEMATOCRIT 40.5 % (32.4-45.2); HEMOGLOBIN 13.8 GM/dL (10.7-15.3); LYMPH % 13.1 % (8-40); MCH 31.9 pg (25.7-33.7); MCHC 34.2 g/dl (32.0-36.0); MEAN CELL VOLUME 93.5 fl (80-96); MEAN PLT VOLUME 8.7 fl (7.5-11.1); MONO % 9.3 % (3.8-10.2); NEUT % 76.7 % (42.8-82.8); PLATELET COUNT 209 K/MM3 (134-434); RBC 4.33 M/mm3 (3.60-5.2); RDW 12.5 % (11.6-15.6); WHITE BLOOD COUNT 11.1 K/mm3 (4.0-10.0)
[2021-01-21 15:07] LABS: INR 1.03 (0.83-1.09); PROTHROMBIN TIME (PATIENT) 12.5 SEC (9.7-13.0)
[2021-01-21 15:09] LABS: ACTIVATED PTT 41.5 SECONDS (25.2-36.5)
[2021-01-21 15:29] LABS: CHLORIDE 94 mmol/L (98-107); SODIUM 135 mmol/L (136-145)
[2021-01-21 15:30] LABS: CALCIUM 9.1 mg/dL (8.5-10.1)
[2021-01-21 15:32] LABS: ALBUMIN 3.8 g/dl (3.4-5.0); ANION GAP 6 MMOL/L (8-16); BLOOD UREA NITROGEN 6.9 mg/dL (7-18); CO2 36 mmol/L (21-32); GLUCOSE,RANDOM 76 mg/dL (74-106)
[2021-01-21 15:35] LABS: CREATININE 0.2 mg/dL (0.55-1.3); SGOT/AST 12 U/L (15-37); SGPT/ALT 18 U/L (13-61)
[2021-01-21 15:36] LABS: BILIRUBIN,TOTAL 0.3 mg/dL (0.2-1); TOT PROT 7.4 g/dl (6.4-8.2)
[2021-01-21 15:38] LABS: ALK PHOS 120 U/L (45-117)
[2021-01-21 15:53] LABS: LACTIC ACID 3.3 mmol/L (0.4-2.0)
[2021-01-21] MEDS ORDERED: VANCOMYCIN 1 GM in D5W (PRE-DOCKED) 1,000 MG/250 ML IVPB ONE (16:45)
[2021-01-21] MEDS ORDERED: PIPERACILLIN/TAZOB 4.5 GM 4.5 GM in DEXTROSE 5%-WATER 100 ML IVPB ONE (16:45)
[2021-01-21] MEDS ORDERED: PIPERACILLIN/TAZOB 4.5 GM 4.5 GM/100 ML BAG IVPB ONE ×2 (16:47→20:10)
[2021-01-21] MEDS ORDERED: VANCOMYCIN 1 GRAM (PRE-DOCKED) 1,000 MG/250 ML BAG IVPB ONE (16:58)
[2021-01-21 17:16] LABS: EPI CELLS 19 /uL (0-25.1); HYALINE CASTS 5 /uL (0-3.1); PH,URINE 7.5 (5.0-8.0); URINE APPEARANCE CLOUDY; URINE BACTERIA 728 /uL (0-1359); URINE BILIRUBIN NEGATIVE (NEGATIVE); URINE COLOR YELLOW; URINE GLUCOSE (UA) NEGATIVE (NEGATIVE); URINE KETONE NEGATIVE (NEGATIVE); URINE LEUK ESTERASE 2+ (NEGATIVE); URINE NITRITE NEGATIVE (NEGATIVE); URINE PROTEIN NEGATIVE (NEGATIVE); URINE RBC 766 /uL (0-23.9); URINE UROBILINOGEN 0.2 mg/dL (0.2-1.0); URINE WBC 158 /uL (0-25.8)
[2021-01-21] MEDS ORDERED: SODIUM CHLORIDE 1,000 ML IV SCH (18:15)
[2021-01-21] MEDS ORDERED: ENOXAPARIN NA (PORCINE) 40 MG/0.4 ML DISP.SYRIN SQ ONE (18:38)
[2021-01-21] MEDS: PIPERACILLIN/TAZOB 4.5 GM 4.5 GM in DEXTROSE 5%-WATER 100 ML IVPB SCH (20:27)
[2021-01-22] MEDS ORDERED: DEXTROSE 5%-WATER 100 ML IVPB ONE ×2 (01:29→09:53)
[2021-01-22] MEDS ORDERED: PIPERACILLIN/TAZOBACTAM 4.5 GM VIAL IVPB ONE ×2 (01:29→09:53)
[2021-01-22] MEDS: PIPERACILLIN/TAZOB 4.5 GM 4.5 GM in DEXTROSE 5%-WATER 100 ML IVPB SCH ×4 (03:05→23:33)
[2021-01-22 09:17] LABS: BASO % 0.6 % (0-2.0); EOS % 1.9 % (0-4.5); HEMATOCRIT 37.9 % (32.4-45.2); HEMOGLOBIN 12.7 GM/dL (10.7-15.3); MCH 31.8 pg (25.7-33.7); MCHC 33.7 g/dl (32.0-36.0); MEAN CELL VOLUME 94.4 fl (80-96); MEAN PLT VOLUME 9.1 fl (7.5-11.1); MONO % 7.9 % (3.8-10.2); NEUT % 75.6 % (42.8-82.8); PLATELET COUNT 174 K/MM3 (134-434); RBC 4.01 M/mm3 (3.60-5.2); RDW 12.9 % (11.6-15.6); WHITE BLOOD COUNT 7.2 K/mm3 (4.0-10.0)
[2021-01-22 09:32] LABS: CHLORIDE 97 mmol/L (98-107); SODIUM 134 mmol/L (136-145)
[2021-01-22 09:36] LABS: ALBUMIN 3.4 g/dl (3.4-5.0); ANION GAP 4 MMOL/L (8-16); CO2 33 mmol/L (21-32); GLUCOSE,RANDOM 81 mg/dL (74-106); MAGNESIUM 1.9 mg/dL (1.8-2.4)
[2021-01-22 09:38] LABS: CREATININE < 0.2 mg/dL (0.55-1.3); PHOSPHOROUS 2.4 mg/dL (2.5-4.9); SGOT/AST 9 U/L (15-37); SGPT/ALT 16 U/L (13-61)
[2021-01-22 09:40] LABS: BILIRUBIN,TOTAL 1.1 mg/dL (0.2-1); TOT PROT 6.6 g/dl (6.4-8.2)
[2021-01-22 09:42] LABS: ALK PHOS 96 U/L (45-117)
[2021-01-22 10:41] LABS: BLOOD UREA NITROGEN 2.7 mg/dL (7-18); CALCIUM 8.6 mg/dL (8.5-10.1)
[2021-01-22] MEDS ORDERED: DEXTROSE 5%-WATER - 50 ML IVPB ONE (17:22)
[2021-01-22] MEDS ORDERED: PIPERACILLIN/TAZOBACTAM 2.25 GM VIAL IVPB ONE (17:22)
[2021-01-22] MEDS: ENOXAPARIN NA (PORCINE) 40 MG/0.4 ML DISP.SYRIN SQ SCH (17:26)
[2021-01-22] MEDS: PIPERACILLIN/TAZOB 2.25 GM 2.25 GM in DEXTROSE 5%-WATER - 50 ML IVPB SCH (17:27)
[2021-01-23] MEDS ORDERED: PIPERACILLIN/TAZOBACTAM 2.25 GM VIAL IVPB ONE ×3 (01:52→17:02)
[2021-01-23] MEDS ORDERED: DEXTROSE 5%-WATER - 50 ML IVPB ONE ×3 (01:52→17:02)
[2021-01-23] MEDS: PIPERACILLIN/TAZOB 2.25 GM 2.25 GM in DEXTROSE 5%-WATER - 50 ML IVPB SCH ×3 (01:55→17:04)
[2021-01-23 07:44] LABS: BASO % 0.4 % (0-2.0); EOS % 1.4 % (0-4.5); HEMATOCRIT 40.7 % (32.4-45.2); HEMOGLOBIN 14.1 GM/dL (10.7-15.3); LYMPH % 9.9 % (8-40); MCH 32.5 pg (25.7-33.7); MCHC 34.5 g/dl (32.0-36.0); MEAN CELL VOLUME 94.3 fl (80-96); MEAN PLT VOLUME 8.6 fl (7.5-11.1); MONO % 7.3 % (3.8-10.2); PLATELET COUNT 171 K/MM3 (134-434); RBC 4.32 M/mm3 (3.60-5.2); RDW 12.5 % (11.6-15.6); WHITE BLOOD COUNT 10.5 K/mm3 (4.0-10.0)
[2021-01-23 08:36] LABS: CHLORIDE 95 mmol/L (98-107); SODIUM 135 mmol/L (136-145)
[2021-01-23 08:38] LABS: CALCIUM 8.9 mg/dL (8.5-10.1)
[2021-01-23 08:39] LABS: ALBUMIN 3.5 g/dl (3.4-5.0); ANION GAP 7 MMOL/L (8-16); BLOOD UREA NITROGEN 6.8 mg/dL (7-18); CO2 33 mmol/L (21-32)
[2021-01-23 08:42] LABS: CREATININE < 0.2 mg/dL (0.55-1.3); SGOT/AST 10 U/L (15-37); SGPT/ALT 15 U/L (13-61)
[2021-01-23 08:44] LABS: BILIRUBIN,TOTAL 1.2 mg/dL (0.2-1); TOT PROT 6.7 g/dl (6.4-8.2)
[2021-01-23 08:45] LABS: ALK PHOS 94 U/L (45-117)
[2021-01-23 08:47] LABS: GLUCOSE,RANDOM 48 mg/dL (74-106)
[2021-01-23] MEDS: POTASSIUM CHLORIDE ORAL LIQUID 20 MEQ/15 ML PO ONE ×2 (11:00→11:43)
[2021-01-23] MEDS: ENOXAPARIN NA (PORCINE) 40 MG/0.4 ML DISP.SYRIN SQ SCH (11:46)
[2021-01-23] MEDS: AMINO ACIDS 4.25%/D5W 1,000 ML IV SCH (13:23)
[2021-01-24] MEDS ORDERED: DEXTROSE 5%-WATER - 50 ML IVPB ONE ×3 (01:16→17:15)
[2021-01-24] MEDS ORDERED: PIPERACILLIN/TAZOBACTAM 2.25 GM VIAL IVPB ONE ×3 (01:16→17:15)
[2021-01-24] MEDS: PIPERACILLIN/TAZOB 2.25 GM 2.25 GM in DEXTROSE 5%-WATER - 50 ML IVPB SCH ×3 (01:27→17:16)
[2021-01-24 09:04] LABS: BASO % 0.3 % (0-2.0); EOS % 1.4 % (0-4.5); HEMATOCRIT 41.1 % (32.4-45.2); LYMPH % 14.7 % (8-40); MCH 32.2 pg (25.7-33.7); MCHC 34.1 g/dl (32.0-36.0); MEAN CELL VOLUME 94.3 fl (80-96); MEAN PLT VOLUME 8.8 fl (7.5-11.1); MONO % 10.9 % (3.8-10.2); NEUT % 72.7 % (42.8-82.8); PLATELET COUNT 182 K/MM3 (134-434); RBC 4.36 M/mm3 (3.60-5.2); RDW 12.5 % (11.6-15.6); WHITE BLOOD COUNT 8.1 K/mm3 (4.0-10.0)
[2021-01-24] MEDS: ENOXAPARIN NA (PORCINE) 40 MG/0.4 ML DISP.SYRIN SQ SCH (09:09)
[2021-01-24 09:21] LABS: ALBUMIN 3.6 g/dl (3.4-5.0); BLOOD UREA NITROGEN 13.1 mg/dL (7-18); CALCIUM 9.1 mg/dL (8.5-10.1)
[2021-01-24 09:24] LABS: BILIRUBIN,TOTAL 0.6 mg/dL (0.2-1); CREATININE 0.2 mg/dL (0.55-1.3); TOT PROT 7.3 g/dl (6.4-8.2)
[2021-01-24] MEDS: AMINO ACIDS 4.25%/D5W 1,000 ML IV SCH ×2 (11:46→12:47)
[2021-01-24] MEDS ORDERED: ALBUTEROL SO4 2.5/IPRATROPIUM 0.5 INH SOL 3 ML VIAL.NEB. NEB PRN (15:22)
[2021-01-24] MEDS: SCOPOLAMINE HYDROBROMIDE 1 PATCH PATCH.TD72 TD SCH (17:16)
[2021-01-25] MEDS ORDERED: PIPERACILLIN/TAZOBACTAM 2.25 GM VIAL IVPB ONE ×3 (02:32→17:13)
[2021-01-25] MEDS ORDERED: DEXTROSE 5%-WATER - 50 ML IVPB ONE ×3 (02:33→17:13)
[2021-01-25] MEDS: PIPERACILLIN/TAZOB 2.25 GM 2.25 GM in DEXTROSE 5%-WATER - 50 ML IVPB SCH ×3 (02:37→17:19)
[2021-01-25] MEDS: ENOXAPARIN NA (PORCINE) 40 MG/0.4 ML DISP.SYRIN SQ SCH (10:07)
[2021-01-25] MEDS ORDERED: NAPH,MB-DB/K PH,MBDB POWDER PACKET GT ONE (11:58)
[2021-01-25] MEDS: AMINO ACIDS 4.25%/D5W 1,000 ML IV SCH (12:01)
[2021-01-25 13:25] LABS: BASO % 0.4 % (0-2.0); EOS % 5.4 % (0-4.5); HEMATOCRIT 40.7 % (32.4-45.2); HEMOGLOBIN 13.9 GM/dL (10.7-15.3); LYMPH % 20.6 % (8-40); MCH 31.8 pg (25.7-33.7); MCHC 34.2 g/dl (32.0-36.0); MEAN CELL VOLUME 92.9 fl (80-96); MEAN PLT VOLUME 8.5 fl (7.5-11.1); MONO % 11.8 % (3.8-10.2); NEUT % 61.8 % (42.8-82.8); PLATELET COUNT 176 K/MM3 (134-434); RBC 4.38 M/mm3 (3.60-5.2); RDW 12.2 % (11.6-15.6); WHITE BLOOD COUNT 7.2 K/mm3 (4.0-10.0)
[2021-01-25 13:50] LABS: CHLORIDE 93 mmol/L (98-107); SODIUM 135 mmol/L (136-145)
[2021-01-25 13:52] LABS: BLOOD UREA NITROGEN 10.7 mg/dL (7-18); CALCIUM 9.4 mg/dL (8.5-10.1)
[2021-01-25 13:53] LABS: ANION GAP 8 MMOL/L (8-16); CO2 33 mmol/L (21-32); GLUCOSE,RANDOM 92 mg/dL (74-106)
[2021-01-25 13:56] LABS: CREATININE < 0.2 mg/dL (0.55-1.3); PHOSPHOROUS 2.6 mg/dL (2.5-4.9)
[2021-01-25] MEDS ORDERED: MAGNESIUM SULF 50% (8.12 MEQ/2 ML-1 GM VIAL) IVPB ONE (14:07)
[2021-01-25] MEDS: MULTIVIT-MINERALS ORAL LIQUID GT SCH (21:11)
[2021-01-25] MEDS ORDERED: SENNOSIDES 8.8 MG/5 ML BULK BOTTLE GT SCH (22:00)
[2021-01-26] MEDS ORDERED: PIPERACILLIN/TAZOBACTAM 2.25 GM VIAL IVPB ONE ×2 (01:17→10:30)
[2021-01-26] MEDS ORDERED: DEXTROSE 5%-WATER - 50 ML IVPB ONE ×2 (01:17→10:30)
[2021-01-26] MEDS: PIPERACILLIN/TAZOB 2.25 GM 2.25 GM in DEXTROSE 5%-WATER - 50 ML IVPB SCH ×3 (01:21→18:57)
[2021-01-26] MEDS ORDERED: BISACODYL 10 MG SUPP.RECT RC PRN (10:00)
[2021-01-26] MEDS ORDERED: PT OWN MED DRAWER 7, Y5N ONE ×2 (10:30→21:42)
[2021-01-26] MEDS: ENOXAPARIN NA (PORCINE) 40 MG/0.4 ML DISP.SYRIN SQ SCH (10:38)
[2021-01-26] MEDS: SENNOSIDES 8.8 MG/5 ML BULK BOTTLE GT SCH ×2 (10:39→22:27)
[2021-01-26 11:16] LABS: BASO % 0.6 % (0-2.0); EOS % 4.3 % (0-4.5); HEMATOCRIT 40.2 % (32.4-45.2); HEMOGLOBIN 14.1 GM/dL (10.7-15.3); LYMPH % 14.5 % (8-40); MCH 32.5 pg (25.7-33.7); MEAN CELL VOLUME 93.1 fl (80-96); MEAN PLT VOLUME 8.5 fl (7.5-11.1); MONO % 9.4 % (3.8-10.2); NEUT % 71.2 % (42.8-82.8); PLATELET COUNT 194 K/MM3 (134-434); RBC 4.32 M/mm3 (3.60-5.2); RDW 12.3 % (11.6-15.6); WHITE BLOOD COUNT 7.6 K/mm3 (4.0-10.0)
[2021-01-26 12:11] LABS: CALCIUM 9.9 mg/dL (8.5-10.1)
[2021-01-26 12:12] LABS: BLOOD UREA NITROGEN 7.8 mg/dL (7-18); MAGNESIUM 2.3 mg/dL (1.8-2.4)
[2021-01-26 12:15] LABS: CREATININE 0.2 mg/dL (0.55-1.3); PHOSPHOROUS 3.5 mg/dL (2.5-4.9)
[2021-01-26] MEDS: MULTIVIT-MINERALS ORAL LIQUID GT SCH (22:27)
[2021-01-27] MEDS ORDERED: PIPERACILLIN/TAZOBACTAM 2.25 GM VIAL IVPB ONE (02:30)
[2021-01-27] MEDS ORDERED: DEXTROSE 5%-WATER - 50 ML IVPB ONE (02:30)
[2021-01-27] MEDS: PIPERACILLIN/TAZOB 2.25 GM 2.25 GM in DEXTROSE 5%-WATER - 50 ML IVPB SCH ×2 (03:22→10:14)
[2021-01-27] MEDS ORDERED: AMOX TR/POTASSIUM CLAVULANATE 250 MG/5 ML BOTTLE PO ONE (03:49)
[2021-01-27] MEDS ORDERED: PT OWN MED DRAWER 7, Y5N ONE ×2 (10:12→14:54)
[2021-01-27] MEDS: ENOXAPARIN NA (PORCINE) 40 MG/0.4 ML DISP.SYRIN SQ SCH (10:13)
[2021-01-27] MEDS: SENNOSIDES 8.8 MG/5 ML BULK BOTTLE GT SCH (10:13)
[2021-01-27 14:00] VITALS: BP 104/70; PULSE 78; TEMP 98.1
[2021-01-27] MEDS ORDERED: AMOX TR/POTASSIUM CLAVULANATE 400 MG/5 ML BOTTLE PO ONE (14:00)
[2021-01-27 14:42] VITALS: BMI 23.0
[2021-01-27] MEDS: SCOPOLAMINE HYDROBROMIDE 1 PATCH PATCH.TD72 TD SCH (16:01)
== END 2021-01-27 17:25 | DRG 871 ==
LOC: JER 12:47 → JERBED 17:24 → J6S 22:48
PROVIDERS: ADMIT Student in an Organized Health Care Education/Training Program; ATTEND Internal Medicine
DX: A41.81 Sepsis due to Enterococcus (principal); R53.2 Functional quadriplegia; J69.0 Pneumonitis due to inhalation of food and vomit; F72 Severe intellectual disabilities; E87.2 Acidosis; J96.11 Chronic respiratory failure with hypoxia; E87.1 Hypo-osmolality and hyponatremia; N39.0 Urinary tract infection, site not specified; R65.20 Severe sepsis without septic shock; E11.9 Type 2 diabetes mellitus without complications; G80.9 Cerebral palsy, unspecified; I50.9 Heart failure, unspecified; R50.9 Fever, unspecified; Q03.9 Congenital hydrocephalus, unspecified; D72.829 Elevated white blood cell count, unspecified; Z93.1 Gastrostomy status; Z95.0 Presence of cardiac pacemaker
CPT/HCPCS: 36415; 71045-TC-FY; 80048; 80053; 81003; 82962; 83036; 83605; 83735; 84100; 84443; 84484; 85025; 85610; 85730; 87040; 87077; 87086; 87186; 87254; 87899; 93005; 93010; 99285-25; C9803; U0003; U0005

== ENCOUNTER 2021-03-08 14:50 | Emergency (ER) | payer OTHER ==
[2021-03-08 15:28] VITALS: BMI 22.6
[2021-03-08] MEDS ORDERED: SODIUM CHLORIDE IV ONE (15:46)
[2021-03-08 16:50] LABS: VENOUS BASE EXCESS 9.7 mmol/L (-2-2); VENOUS O2 SATURATION 78.2 % (70-80); VENOUS PH 7.318 (7.310-7.410)
[2021-03-08 16:55] LABS: VENOUS PCO2 78.1 mmHg (38-52)
[2021-03-08 17:19] LABS: BASO % 0.6 % (0-2.0); EOS % 0.8 % (0-4.5); HEMATOCRIT 37.3 % (32.4-45.2); HEMOGLOBIN 12.7 GM/dL (10.7-15.3); LYMPH % 12.4 % (8-40); MCH 31.6 pg (25.7-33.7); MCHC 34.1 g/dl (32.0-36.0); MEAN CELL VOLUME 92.6 fl (80-96); MEAN PLT VOLUME 8.5 fl (7.5-11.1); NEUT % 78.2 % (42.8-82.8); PLATELET COUNT 244 10^3/uL (134-434); RBC 4.03 M/mm3 (3.60-5.2); RDW 12.4 % (11.6-15.6); WHITE BLOOD COUNT 7.5 K/mm3 (4.0-10.0)
[2021-03-08 17:23] LABS: CHLORIDE 90 mmol/L (98-107); SODIUM 131 mmol/L (136-145)
[2021-03-08 17:24] LABS: INR 1.01 (0.83-1.09); PROTHROMBIN TIME (PATIENT) 12.4 SEC (9.7-13.0)
[2021-03-08 17:25] LABS: ANION GAP 4 MMOL/L (8-16); BLOOD UREA NITROGEN 8.6 mg/dL (7-18); CALCIUM 8.7 mg/dL (8.5-10.1); CO2 38 mmol/L (21-32); GLUCOSE,RANDOM 119 mg/dL (74-106)
[2021-03-08 17:26] LABS: ALBUMIN 3.7 g/dl (3.4-5.0)
[2021-03-08 17:27] LABS: ACTIVATED PTT 40.6 SECONDS (25.2-36.5)
[2021-03-08 17:28] LABS: CREATININE 0.2 mg/dL (0.55-1.3); SGOT/AST 26 U/L (15-37); SGPT/ALT 22 U/L (13-61)
[2021-03-08 17:30] LABS: BILIRUBIN,TOTAL 0.3 mg/dL (0.2-1); TOT PROT 7.2 g/dl (6.4-8.2)
[2021-03-08 17:31] LABS: ALK PHOS 115 U/L (45-117)
[2021-03-08 22:24] LABS: EPI CELLS 14 /uL (0-25.1); HYALINE CASTS 1 /uL (0-3.1); URINE APPEARANCE CLEAR; URINE BACTERIA 83 /uL (0-1359); URINE BILIRUBIN NEGATIVE (NEGATIVE); URINE COLOR ORANGE; URINE GLUCOSE (UA) NEGATIVE (NEGATIVE); URINE KETONE NEGATIVE (NEGATIVE); URINE LEUK ESTERASE 2+ (NEGATIVE); URINE NITRITE NEGATIVE (NEGATIVE); URINE PROTEIN TRACE (NEGATIVE); URINE RBC 751 /uL (0-23.9); URINE UROBILINOGEN 0.2 mg/dL (0.2-1.0); URINE WBC 74 /uL (0-25.8)
[2021-03-09 03:52] VITALS: TEMP 97.6
[2021-03-09 04:40] VITALS: BP 122/85; PULSE 101
== END 2021-03-09 04:48 ==
LOC: JER 14:50
PROC: 3E0337Z Introduction of Electrolytic and Water Balance Substance into Peripheral Vein, Percutaneous Approach (ICD-10-PCS; principal; 2021-03-08)
DX: R06.02 Shortness of breath (principal); M71.21 Synovial cyst of popliteal space [Baker], right knee
CPT/HCPCS: 36415; 71045-TC-FY; 80053; 81003; 82803; 83605; 84484; 85025; 85610; 85730; 87040; 87086; 87186; 87804; 93005; 93010; 99285-25; C9803; U0003; U0005

== ENCOUNTER 2022-05-22 11:43 | Inpatient (IN) | payer OTHER ==
[2022-05-22 16:03] LABS: ARTERIAL BLD GAS O2 SATURATION 99.3 % (95-98); ARTERIAL BLOOD GAS BASE EXCESS 14.8 mmol/L (-2-2); ARTERIAL BLOOD GAS PO2 219.3 mmHg (80-100); ARTERIAL BLOOD GAS pH 7.277 (7.350-7.450)
[2022-05-22 16:05] LABS: BASO % 0.6 % (0-2.0); EOS % 4.2 % (0-4.5); HEMATOCRIT 40.2 % (32.4-45.2); LYMPH % 19.7 % (8-40); MCH 30.5 pg (25.7-33.7); MCHC 32.2 g/dl (32.0-36.0); MEAN CELL VOLUME 94.7 fl (80-96); MEAN PLT VOLUME 8.7 fl (7.5-11.1); MONO % 10.4 % (3.8-10.2); NEUT % 65.1 % (42.8-82.8); PLATELET COUNT 192 10^3/uL (134-434); RBC 4.25 M/mm3 (3.60-5.2); RDW 13.4 % (11.6-15.6); WHITE BLOOD COUNT 5.2 K/mm3 (4.0-10.0)
[2022-05-22 16:17] LABS: CHLORIDE 91 mmol/L (98-107); SODIUM 134 mmol/L (136-145)
[2022-05-22 16:19] LABS: CALCIUM 8.6 mg/dL (8.5-10.1)
[2022-05-22 16:20] LABS: ALBUMIN 3.4 g/dl (3.4-5.0); ANION GAP -1 MMOL/L (8-16); CO2 45 mmol/L (21-32); GLUCOSE,RANDOM 94 mg/dL (74-106)
[2022-05-22 16:23] LABS: CREATININE < 0.2 mg/dL (0.55-1.3); SGOT/AST 13 U/L (15-37); SGPT/ALT 23 U/L (13-61)
[2022-05-22 16:25] LABS: BILIRUBIN,TOTAL 0.2 mg/dL (0.2-1); TOT PROT 6.8 g/dl (6.4-8.2)
[2022-05-22 16:26] LABS: ALK PHOS 100 U/L (45-117)
[2022-05-22] MEDS ORDERED: ALBUTEROL SO4 2.5/IPRATROPIUM 0.5 INH SOL 3 ML VIAL.NEB. NEB ONE (16:27)
[2022-05-22] MEDS ORDERED: RAPID SEQUENCE INTUBATION KIT NR ONE (16:37)
[2022-05-22] MEDS ORDERED: ETOMIDATE 20 MG/10 ML AMPUL IVPUSH ONE (17:35)
[2022-05-22] MEDS ORDERED: ROCURONIUM BROMIDE 50 MG/5 ML VIAL IV ONE (17:35)
[2022-05-22 17:36] LABS: ARTERIAL BLD GAS O2 SATURATION 99.9 % (95-98); ARTERIAL BLOOD GAS BASE EXCESS 16.7 mmol/L (-2-2); ARTERIAL BLOOD GAS PO2 > 511.2 mmHg (80-100); ARTERIAL BLOOD GAS pH 7.512 (7.350-7.450)
[2022-05-22 17:37] LABS: ALLENS TEST POSITIVE; VENT MODE A/C; VENT RATE 14
[2022-05-22] MEDS ORDERED: VANCOMYCIN/WATER FOR INJ (PEG) 1,000 MG/200 ML BAG IVPB ONE (18:21)
[2022-05-22] MEDS ORDERED: PIPERACILLIN/TAZOB 4.5 GM 4.5 GM in DEXTROSE 5%-WATER 100 ML IVPB ONE (18:21)
[2022-05-22] MEDS ORDERED: MIDAZOLAM 100 MG in SODIUM CHLORIDE 100 ML IVPB SCH (19:00)
[2022-05-22] MEDS ORDERED: MIDAZOLAM HCL 5 MG/1 ML Single Dose Vial IVPUSH ONE (19:01)
[2022-05-22] MEDS ORDERED: MIDAZOLAM HCL 5 MG/1 ML Single Dose Vial ONE (19:03)
[2022-05-22] MEDS: PROPOFOL 1,000,000 MCG/100 ML VIAL IVPB SCH (19:20)
[2022-05-22] MEDS: methylPREDNISolone NA SUCC 40 MG/1 ML VIAL IVPUSH SCH (19:21)
[2022-05-22] MEDS ORDERED: ROCURONIUM BROMIDE 50 MG/5 ML VIAL IV STA (20:05)
[2022-05-22] MEDS: FENTANYL NS IVPB 500 MCG/100 ML BAG IVPB SCH (20:23)
[2022-05-22 21:49] LABS: ARTERIAL BLD GAS O2 SATURATION 98.2 % (95-98); ARTERIAL BLOOD GAS PO2 93.7 mmHg (80-100)
[2022-05-22 21:50] LABS: ALLENS TEST POSITIVE; VENT MODE A/C; VENT RATE 14
[2022-05-22 21:51] LABS: ARTERIAL BLOOD GAS pH 7.611 (7.350-7.450)
[2022-05-22] MEDS: CHLORHEXIDINE GLUCONATE 4% CLEANSER FOR DECOLONIZATION TP SCH (22:46)
[2022-05-22] MEDS: MUPIROCIN 2% TOPICAL OINTMENT FOR DECOLONIZATION NS SCH (22:46)
[2022-05-23 08:02] LABS: HEMATOCRIT 37.8 % (32.4-45.2); HEMOGLOBIN 12.9 GM/dL (10.7-15.3); MCH 31.4 pg (25.7-33.7); MEAN CELL VOLUME 92.4 fl (80-96); MEAN PLT VOLUME 8.8 fl (7.5-11.1); PLATELET COUNT 187 10^3/uL (134-434); RDW 13.5 % (11.6-15.6); WHITE BLOOD COUNT 8.6 K/mm3 (4.0-10.0)
[2022-05-23 08:14] LABS: INR 1.23 (0.83-1.09); PROTHROMBIN TIME (PATIENT) 14.2 SEC (9.7-13.0)
[2022-05-23 08:25] LABS: BLOOD UREA NITROGEN 13.6 mg/dL (7-18)
[2022-05-23 08:28] LABS: CREATININE 0.4 mg/dL (0.55-1.3); PHOSPHOROUS 1.4 mg/dL (2.5-4.9)
[2022-05-23] MEDS ORDERED: POTASSIUM CHLORIDE ORAL LIQUID 20 MEQ/15 ML PEG ONE (09:04)
[2022-05-23 09:20] LABS: MAGNESIUM 2.2 mg/dL (1.8-2.4)
[2022-05-23] MEDS: KCL 10 MEQ IVPB 10 MEQ/100 ML INFUS.BAG IVPB SCH (09:52)
[2022-05-23] MEDS: methylPREDNISolone NA SUCC 40 MG/1 ML VIAL IVPUSH SCH (09:52)
[2022-05-23] MEDS: NAPH,MB-DB/K PH,MBDB POWDER PACKET PEG SCH ×2 (09:52→21:25)
[2022-05-23] MEDS: MUPIROCIN 2% TOPICAL OINTMENT FOR DECOLONIZATION NS SCH ×2 (09:52→21:26)
[2022-05-23] MEDS ORDERED: NAPH,MB-DB/K PH,MBDB POWDER PACKET NGT SCH (10:00)
[2022-05-23 10:48] LABS: ARTERIAL BLD GAS O2 SATURATION 98.5 % (95-98); ARTERIAL BLOOD GAS BASE EXCESS 10.7 mmol/L (-2-2); ARTERIAL BLOOD GAS PO2 111.8 mmHg (80-100); ARTERIAL BLOOD GAS pH 7.542 (7.350-7.450)
[2022-05-23 10:52] LABS: ALLENS TEST POSITIVE; VENT MODE A/C; VENT RATE 10
[2022-05-23] MEDS: FENTANYL NS IVPB 500 MCG/100 ML BAG IVPB SCH (11:03)
[2022-05-23] MEDS: MIDAZOLAM IN 0.9 % SOD.CHLORID 100 MG/100 ML PLAST..BAG IVPB SCH (13:25)
[2022-05-23] MEDS: PROPOFOL 1,000,000 MCG/100 ML VIAL IVPB SCH (17:48)
[2022-05-23] MEDS: PIPERACILLIN/TAZOB 2.25 GM 2.25 GM in DEXTROSE 5%-WATER - 50 ML IVPB SCH (17:48)
[2022-05-23] MEDS: CHLORHEXIDINE GLUCONATE 4% CLEANSER FOR DECOLONIZATION TP SCH (21:26)
[2022-05-24] MEDS: PIPERACILLIN/TAZOB 2.25 GM 2.25 GM in DEXTROSE 5%-WATER - 50 ML IVPB SCH ×3 (01:06→17:56)
[2022-05-24 06:01] LABS: ARTERIAL BLD GAS O2 SATURATION 98.9 % (95-98); ARTERIAL BLOOD GAS BASE EXCESS 9.6 mmol/L (-2-2); ARTERIAL BLOOD GAS PO2 129.8 mmHg (80-100); ARTERIAL BLOOD GAS pH 7.562 (7.350-7.450)
[2022-05-24 06:09] LABS: ALLENS TEST POSITIVE; VENT MODE A/C; VENT RATE 10
[2022-05-24 08:21] LABS: BASO % 0.4 % (0-2.0); EOS % 1.6 % (0-4.5); HEMATOCRIT 37.1 % (32.4-45.2); HEMOGLOBIN 12.2 GM/dL (10.7-15.3); LYMPH % 22.3 % (8-40); MCH 30.4 pg (25.7-33.7); MEAN CELL VOLUME 92.1 fl (80-96); MEAN PLT VOLUME 9.1 fl (7.5-11.1); MONO % 11.4 % (3.8-10.2); NEUT % 64.3 % (42.8-82.8); PLATELET COUNT 219 10^3/uL (134-434); RBC 4.03 M/mm3 (3.60-5.2); RDW 14.2 % (11.6-15.6); WHITE BLOOD COUNT 9.4 K/mm3 (4.0-10.0)
[2022-05-24 08:35] LABS: CHLORIDE 100 mmol/L (98-107); SODIUM 141 mmol/L (136-145)
[2022-05-24 08:42] LABS: CALCIUM 8.6 mg/dL (8.5-10.1)
[2022-05-24 08:43] LABS: ALBUMIN 3.2 g/dl (3.4-5.0); BLOOD UREA NITROGEN 20.7 mg/dL (7-18); CO2 31 mmol/L (21-32); GLUCOSE,RANDOM 73 mg/dL (74-106)
[2022-05-24 08:45] LABS: SGPT/ALT 18 U/L (13-61)
[2022-05-24 08:46] LABS: CREATININE 0.3 mg/dL (0.55-1.3); SGOT/AST 14 U/L (15-37)
[2022-05-24 08:47] LABS: BILIRUBIN,TOTAL 0.6 mg/dL (0.2-1); TOT PROT 6.5 g/dl (6.4-8.2)
[2022-05-24 08:48] LABS: ALK PHOS 84 U/L (45-117)
[2022-05-24 08:54] LABS: MAGNESIUM 2.3 mg/dL (1.8-2.4)
[2022-05-24 08:58] LABS: PHOSPHOROUS 4.4 mg/dL (2.5-4.9)
[2022-05-24 09:02] LABS: ANION GAP 10 MMOL/L (8-16)
[2022-05-24] MEDS: methylPREDNISolone NA SUCC 40 MG/1 ML VIAL IVPUSH SCH (09:24)
[2022-05-24] MEDS: MAGNESIUM 1GM/D5W 100ML - 100 ML IVPB IVPB ONE ×2 (09:25→09:35)
[2022-05-24] MEDS ORDERED: POTASSIUM CHLORIDE ORAL LIQUID 20 MEQ/15 ML PEG ONE (10:00)
[2022-05-24] MEDS: KCL 10 MEQ IVPB 10 MEQ/100 ML INFUS.BAG IVPB SCH ×3 (10:12→13:31)
[2022-05-24] MEDS: MUPIROCIN 2% TOPICAL OINTMENT FOR DECOLONIZATION NS SCH ×2 (11:29→21:28)
[2022-05-24] MEDS ORDERED: KCL 10 MEQ IVPB 10 MEQ/100 ML INFUS.BAG IVPB SCH ×2 (13:00→15:30)
[2022-05-24] MEDS: PANTOPRAZOLE SODIUM 40 MG VIAL IVPUSH SCH (15:28)
[2022-05-24 16:04] LABS: CALCIUM 8.7 mg/dL (8.5-10.1)
[2022-05-24 16:05] LABS: BLOOD UREA NITROGEN 17.3 mg/dL (7-18)
[2022-05-24 16:08] LABS: CREATININE 0.3 mg/dL (0.55-1.3)
[2022-05-24] MEDS: CHLORHEXIDINE GLUCONATE 4% CLEANSER FOR DECOLONIZATION TP SCH (21:28)
[2022-05-24] MEDS: MIDAZOLAM IN 0.9 % SOD.CHLORID 100 MG/100 ML PLAST..BAG IVPB SCH (21:33)
[2022-05-25] MEDS: PIPERACILLIN/TAZOB 2.25 GM 2.25 GM in DEXTROSE 5%-WATER - 50 ML IVPB SCH ×3 (02:03→18:27)
[2022-05-25 05:32] LABS: ARTERIAL BLD GAS O2 SATURATION 99.1 % (95-98); ARTERIAL BLOOD GAS BASE EXCESS 5.7 mmol/L (-2-2); ARTERIAL BLOOD GAS PO2 157.8 mmHg (80-100); ARTERIAL BLOOD GAS pH 7.466 (7.350-7.450)
[2022-05-25 08:09] LABS: BLOOD UREA NITROGEN 17.9 mg/dL (7-18); CALCIUM 8.6 mg/dL (8.5-10.1); MAGNESIUM 2.2 mg/dL (1.8-2.4)
[2022-05-25 08:12] LABS: CREATININE 0.2 mg/dL (0.55-1.3); PHOSPHOROUS 3.6 mg/dL (2.5-4.9)
[2022-05-25 08:14] LABS: BILIRUBIN,TOTAL 0.5 mg/dL (0.2-1); TOT PROT 6.6 g/dl (6.4-8.2)
[2022-05-25] MEDS: PROPOFOL 1,000,000 MCG/100 ML VIAL IVPB SCH (10:39)
[2022-05-25] MEDS: MUPIROCIN 2% TOPICAL OINTMENT FOR DECOLONIZATION NS SCH ×2 (10:39→23:27)
[2022-05-25] MEDS: PANTOPRAZOLE SODIUM 40 MG VIAL IVPUSH SCH (10:42)
[2022-05-25] MEDS: methylPREDNISolone NA SUCC 40 MG/1 ML VIAL IVPUSH SCH (10:42)
[2022-05-25 12:57] LABS: BASO % 0.5 % (0-2.0); EOS % 4.7 % (0-4.5); HEMATOCRIT 36.1 % (32.4-45.2); HEMOGLOBIN 11.9 GM/dL (10.7-15.3); LYMPH % 15.4 % (8-40); MCH 31.6 pg (25.7-33.7); MCHC 32.9 g/dl (32.0-36.0); MEAN PLT VOLUME 8.5 fl (7.5-11.1); MONO % 7.3 % (3.8-10.2); NEUT % 72.1 % (42.8-82.8); PLATELET COUNT 165 10^3/uL (134-434); RBC 3.76 M/mm3 (3.60-5.2); RDW 14.1 % (11.6-15.6); WHITE BLOOD COUNT 8.2 K/mm3 (4.0-10.0)
[2022-05-25 13:13] LABS: PLATELET ESTIMATE ADEQUATE
[2022-05-25] MEDS ORDERED: DEXMEDETOMIDINE PREMIX 400 MCG/100 ML BAG IVPB SCH (14:30)
[2022-05-25] MEDS: MIDAZOLAM IN 0.9 % SOD.CHLORID 100 MG/100 ML PLAST..BAG IVPB SCH (15:56)
[2022-05-25 16:11] LABS: ARTERIAL BLD GAS O2 SATURATION 98.5 % (95-98); ARTERIAL BLOOD GAS BASE EXCESS 3.3 mmol/L (-2-2); ARTERIAL BLOOD GAS PO2 140.1 mmHg (80-100); ARTERIAL BLOOD GAS pH 7.317 (7.350-7.450)
[2022-05-25 16:16] LABS: ALLENS TEST POSITIVE; VENT MODE PSV
[2022-05-25 20:12] LABS: EPI CELLS >36 /uL (0-25.1); HYALINE CASTS 1 /uL (0-3.1); URINE APPEARANCE CLEAR; URINE BACTERIA 22 /uL (0-1359); URINE BILIRUBIN NEGATIVE (NEGATIVE); URINE COLOR YELLOW; URINE GLUCOSE (UA) NEGATIVE (NEGATIVE); URINE KETONE TRACE (NEGATIVE); URINE LEUK ESTERASE 2+ (NEGATIVE); URINE NITRITE NEGATIVE (NEGATIVE); URINE PROTEIN NEGATIVE (NEGATIVE); URINE UROBILINOGEN 0.2 mg/dL (0.2-1.0); URINE WBC 299 /uL (0-25.8)
[2022-05-25 21:06] LABS: URINE RBC 617 /uL (0-23.9)
[2022-05-25] MEDS: CHLORHEXIDINE GLUCONATE 4% CLEANSER FOR DECOLONIZATION TP SCH (23:27)
[2022-05-26] MEDS: PIPERACILLIN/TAZOB 2.25 GM 2.25 GM in DEXTROSE 5%-WATER - 50 ML IVPB SCH ×3 (03:00→18:18)
[2022-05-26] MEDS: SCOPOLAMINE HYDROBROMIDE 1 PATCH PATCH.TD72 TD SCH (08:14)
[2022-05-26 08:23] LABS: BASO % 0.4 % (0-2.0); EOS % 3.9 % (0-4.5); HEMATOCRIT 37.5 % (32.4-45.2); HEMOGLOBIN 12.5 GM/dL (10.7-15.3); MCH 31.4 pg (25.7-33.7); MCHC 33.3 g/dl (32.0-36.0); MEAN CELL VOLUME 94.3 fl (80-96); MEAN PLT VOLUME 8.6 fl (7.5-11.1); NEUT % 62.7 % (42.8-82.8); PLATELET COUNT 192 10^3/uL (134-434); RBC 3.98 M/mm3 (3.60-5.2); RDW 13.9 % (11.6-15.6); WHITE BLOOD COUNT 7.4 K/mm3 (4.0-10.0)
[2022-05-26 08:48] LABS: ALBUMIN 3.2 g/dl (3.4-5.0); BLOOD UREA NITROGEN 18.6 mg/dL (7-18)
[2022-05-26 08:51] LABS: BILIRUBIN,TOTAL 0.6 mg/dL (0.2-1); CREATININE 0.3 mg/dL (0.55-1.3); TOT PROT 6.7 g/dl (6.4-8.2)
[2022-05-26] MEDS: MUPIROCIN 2% TOPICAL OINTMENT FOR DECOLONIZATION NS SCH ×2 (10:08→21:36)
[2022-05-26] MEDS: PANTOPRAZOLE SODIUM 40 MG VIAL IVPUSH SCH (10:09)
[2022-05-26] MEDS: methylPREDNISolone NA SUCC 40 MG/1 ML VIAL IVPUSH SCH (10:09)
[2022-05-26] MEDS: MIDAZOLAM IN 0.9 % SOD.CHLORID 100 MG/100 ML PLAST..BAG IVPB SCH (11:24)
[2022-05-26] MEDS: CHLORHEXIDINE GLUCONATE 4% CLEANSER FOR DECOLONIZATION TP SCH (21:36)
[2022-05-27] MEDS: PIPERACILLIN/TAZOB 2.25 GM 2.25 GM in DEXTROSE 5%-WATER - 50 ML IVPB SCH ×3 (01:43→18:06)
[2022-05-27 06:37] LABS: ARTERIAL BLOOD GAS BASE EXCESS 5.5 mmol/L (-2-2); ARTERIAL BLOOD GAS PO2 155.7 mmHg (80-100); ARTERIAL BLOOD GAS pH 7.422 (7.350-7.450)
[2022-05-27 06:43] LABS: ALLENS TEST POSITIVE
[2022-05-27 06:44] LABS: VENT MODE A/C; VENT RATE 10
[2022-05-27 08:14] LABS: BASO % 0.7 % (0-2.0); EOS % 2.6 % (0-4.5); HEMATOCRIT 36.2 % (32.4-45.2); HEMOGLOBIN 12.2 GM/dL (10.7-15.3); LYMPH % 19.8 % (8-40); MCH 31.6 pg (25.7-33.7); MCHC 33.7 g/dl (32.0-36.0); MEAN CELL VOLUME 93.6 fl (80-96); MEAN PLT VOLUME 8.9 fl (7.5-11.1); NEUT % 67.9 % (42.8-82.8); PLATELET COUNT 194 10^3/uL (134-434); RBC 3.87 M/mm3 (3.60-5.2); RDW 13.7 % (11.6-15.6); WHITE BLOOD COUNT 7.1 K/mm3 (4.0-10.0)
[2022-05-27 08:33] LABS: BLOOD UREA NITROGEN 21.7 mg/dL (7-18); CALCIUM 8.9 mg/dL (8.5-10.1); MAGNESIUM 2.3 mg/dL (1.8-2.4)
[2022-05-27 08:34] LABS: ALBUMIN 3.1 g/dl (3.4-5.0)
[2022-05-27 08:36] LABS: CREATININE 0.2 mg/dL (0.55-1.3); PHOSPHOROUS 3.5 mg/dL (2.5-4.9)
[2022-05-27 08:37] LABS: TOT PROT 6.9 g/dl (6.4-8.2)
[2022-05-27 08:39] LABS: BILIRUBIN,TOTAL 0.5 mg/dL (0.2-1)
[2022-05-27] MEDS: MUPIROCIN 2% TOPICAL OINTMENT FOR DECOLONIZATION NS SCH (10:00)
[2022-05-27] MEDS: PANTOPRAZOLE SODIUM 40 MG VIAL IVPUSH SCH (10:12)
[2022-05-27] MEDS: methylPREDNISolone NA SUCC 40 MG/1 ML VIAL IVPUSH SCH (10:17)
[2022-05-27] MEDS ORDERED: DEXMEDETOMIDINE PREMIX 400 MCG/100 ML BAG IVPB ONE (13:23)
[2022-05-27] MEDS: DEXMEDETOMIDINE PREMIX 400 MCG/100 ML BAG IVPB SCH (14:04)
[2022-05-27 14:45] VITALS: BMI 31.6
[2022-05-27] MEDS: MIDAZOLAM IN 0.9 % SOD.CHLORID 100 MG/100 ML PLAST..BAG IVPB SCH (19:41)
[2022-05-27] MEDS: PROPOFOL 1,000,000 MCG/100 ML VIAL IVPB SCH (19:41)
[2022-05-27] MEDS: CHLORHEXIDINE GLUCONATE 4% CLEANSER FOR DECOLONIZATION TP SCH (22:52)
[2022-05-28] MEDS: PIPERACILLIN/TAZOB 2.25 GM 2.25 GM in DEXTROSE 5%-WATER - 50 ML IVPB SCH ×3 (01:36→17:36)
[2022-05-28 06:52] LABS: ARTERIAL BLD GAS O2 SATURATION 98.8 % (95-98); ARTERIAL BLOOD GAS BASE EXCESS 6.1 mmol/L (-2-2); ARTERIAL BLOOD GAS PO2 144.4 mmHg (80-100); ARTERIAL BLOOD GAS pH 7.401 (7.350-7.450)
[2022-05-28 06:53] LABS: ALLENS TEST POSITIVE
[2022-05-28 06:54] LABS: VENT MODE A/C; VENT RATE 10
[2022-05-28 07:40] LABS: BASO % 0.8 % (0-2.0); EOS % 1.5 % (0-4.5); HEMATOCRIT 39.5 % (32.4-45.2); HEMOGLOBIN 13.1 GM/dL (10.7-15.3); LYMPH % 23.3 % (8-40); MCH 31.4 pg (25.7-33.7); MCHC 33.1 g/dl (32.0-36.0); MEAN CELL VOLUME 94.6 fl (80-96); MEAN PLT VOLUME 8.9 fl (7.5-11.1); MONO % 9.7 % (3.8-10.2); NEUT % 64.7 % (42.8-82.8); PLATELET COUNT 207 10^3/uL (134-434); RBC 4.18 M/mm3 (3.60-5.2); RDW 13.7 % (11.6-15.6)
[2022-05-28 08:05] LABS: CALCIUM 8.9 mg/dL (8.5-10.1)
[2022-05-28 08:06] LABS: ALBUMIN 3.4 g/dl (3.4-5.0); BLOOD UREA NITROGEN 18.5 mg/dL (7-18); MAGNESIUM 2.1 mg/dL (1.8-2.4)
[2022-05-28 08:09] LABS: CREATININE 0.3 mg/dL (0.55-1.3); PHOSPHOROUS 2.9 mg/dL (2.5-4.9)
[2022-05-28 08:10] LABS: BILIRUBIN,TOTAL 0.4 mg/dL (0.2-1); TOT PROT 7.4 g/dl (6.4-8.2)
[2022-05-28] MEDS: methylPREDNISolone NA SUCC 40 MG/1 ML VIAL IVPUSH SCH (10:00)
[2022-05-28] MEDS: PANTOPRAZOLE SODIUM 40 MG VIAL IVPUSH SCH (10:01)
[2022-05-28] MEDS: DEXMEDETOMIDINE PREMIX 400 MCG/100 ML BAG IVPB SCH (19:35)
[2022-05-28] MEDS: CHLORHEXIDINE GLUCONATE 4% CLEANSER FOR DECOLONIZATION TP SCH (21:31)
[2022-05-29] MEDS: PIPERACILLIN/TAZOB 2.25 GM 2.25 GM in DEXTROSE 5%-WATER - 50 ML IVPB SCH ×3 (01:15→18:38)
[2022-05-29] MEDS: SCOPOLAMINE HYDROBROMIDE 1 PATCH PATCH.TD72 TD SCH (06:32)
[2022-05-29 06:41] LABS: ARTERIAL BLD GAS O2 SATURATION 94.7 % (95-98); ARTERIAL BLOOD GAS BASE EXCESS 9.7 mmol/L (-2-2); ARTERIAL BLOOD GAS PO2 75.2 mmHg (80-100); ARTERIAL BLOOD GAS pH 7.399 (7.350-7.450)
[2022-05-29 08:10] LABS: BASO % 0.6 % (0-2.0); EOS % 1.9 % (0-4.5); HEMATOCRIT 38.2 % (32.4-45.2); HEMOGLOBIN 12.8 GM/dL (10.7-15.3); MCH 31.5 pg (25.7-33.7); MCHC 33.6 g/dl (32.0-36.0); MEAN CELL VOLUME 93.7 fl (80-96); MEAN PLT VOLUME 8.7 fl (7.5-11.1); MONO % 11.5 % (3.8-10.2); PLATELET COUNT 230 10^3/uL (134-434); RBC 4.08 M/mm3 (3.60-5.2); RDW 13.4 % (11.6-15.6); WHITE BLOOD COUNT 10.5 K/mm3 (4.0-10.0)
[2022-05-29 08:41] LABS: ALBUMIN 3.4 g/dl (3.4-5.0); BLOOD UREA NITROGEN 15.7 mg/dL (7-18); CALCIUM 8.6 mg/dL (8.5-10.1); MAGNESIUM 2.3 mg/dL (1.8-2.4)
[2022-05-29 08:44] LABS: CREATININE 0.2 mg/dL (0.55-1.3); PHOSPHOROUS 2.7 mg/dL (2.5-4.9)
[2022-05-29 08:46] LABS: BILIRUBIN,TOTAL 0.4 mg/dL (0.2-1)
[2022-05-29] MEDS: PANTOPRAZOLE SODIUM 40 MG VIAL IVPUSH SCH (10:08)
[2022-05-29] MEDS: methylPREDNISolone NA SUCC 40 MG/1 ML VIAL IVPUSH SCH (10:08)
[2022-05-29] MEDS: ALBUTEROL SO4 2.5/IPRATROPIUM 0.5 INH SOL 3 ML VIAL.NEB. NEB SCH ×3 (11:52→20:30)
[2022-05-29] MEDS: CHLORHEXIDINE GLUCONATE 4% CLEANSER FOR DECOLONIZATION TP SCH (21:59)
[2022-05-30] MEDS: PIPERACILLIN/TAZOB 2.25 GM 2.25 GM in DEXTROSE 5%-WATER - 50 ML IVPB SCH ×3 (01:09→17:11)
[2022-05-30] MEDS: ALBUTEROL SO4 2.5/IPRATROPIUM 0.5 INH SOL 3 ML VIAL.NEB. NEB SCH ×4 (08:29→20:35)
[2022-05-30] MEDS: methylPREDNISolone NA SUCC 40 MG/1 ML VIAL IVPUSH SCH (09:02)
[2022-05-30] MEDS: PANTOPRAZOLE SODIUM 40 MG VIAL IVPUSH SCH (09:03)
[2022-05-30 11:10] LABS: CALCIUM 8.9 mg/dL (8.5-10.1)
[2022-05-30 11:11] LABS: ALBUMIN 3.1 g/dl (3.4-5.0); BLOOD UREA NITROGEN 17.1 mg/dL (7-18); MAGNESIUM 2.4 mg/dL (1.8-2.4)
[2022-05-30 11:14] LABS: CREATININE 0.2 mg/dL (0.55-1.3)
[2022-05-30 11:15] LABS: BILIRUBIN,TOTAL 0.2 mg/dL (0.2-1); PHOSPHOROUS 3.1 mg/dL (2.5-4.9); TOT PROT 6.6 g/dl (6.4-8.2)
[2022-05-30] MEDS: HEPARIN NA (PORCINE) 5,000 UNITS/ML 1ML VIAL SQ SCH (21:53)
[2022-05-30] MEDS ORDERED: CHLORHEXIDINE GLUCONATE 4% CLEANSER FOR DECOLONIZATION TP SCH (22:00)
[2022-05-31] MEDS: PIPERACILLIN/TAZOB 2.25 GM 2.25 GM in DEXTROSE 5%-WATER - 50 ML IVPB SCH ×3 (02:00→17:28)
[2022-05-31] MEDS: ALBUTEROL SO4 2.5/IPRATROPIUM 0.5 INH SOL 3 ML VIAL.NEB. NEB SCH ×4 (08:16→20:33)
[2022-05-31] MEDS: HEPARIN NA (PORCINE) 5,000 UNITS/ML 1ML VIAL SQ SCH ×2 (10:03→21:33)
[2022-05-31] MEDS: methylPREDNISolone NA SUCC 40 MG/1 ML VIAL IVPUSH SCH (10:03)
[2022-05-31] MEDS: PANTOPRAZOLE SODIUM 40 MG VIAL IVPUSH SCH (10:03)
[2022-05-31 10:35] LABS: CALCIUM 8.7 mg/dL (8.5-10.1)
[2022-05-31 10:39] LABS: CREATININE 0.2 mg/dL (0.55-1.3)
[2022-05-31 10:40] LABS: TOT PROT 6.4 g/dl (6.4-8.2)
[2022-05-31 10:41] LABS: BILIRUBIN,TOTAL 0.2 mg/dL (0.2-1)
[2022-05-31 14:46] LABS: ARTERIAL BLD GAS O2 SATURATION 93.8 % (95-98); ARTERIAL BLOOD GAS BASE EXCESS 7.3 mmol/L (-2-2); ARTERIAL BLOOD GAS PO2 76.8 mmHg (80-100)
[2022-05-31 17:41] LABS: BASO % 0.1 % (0-2.0); HEMATOCRIT 38.6 % (32.4-45.2); HEMOGLOBIN 12.8 GM/dL (10.7-15.3); LYMPH % 3.7 % (8-40); MCH 31.4 pg (25.7-33.7); MCHC 33.2 g/dl (32.0-36.0); MEAN CELL VOLUME 94.5 fl (80-96); MEAN PLT VOLUME 8.3 fl (7.5-11.1); NEUT % 94.2 % (42.8-82.8); PLATELET COUNT 234 10^3/uL (134-434); RBC 4.08 M/mm3 (3.60-5.2); RDW 13.1 % (11.6-15.6); WHITE BLOOD COUNT 9.6 K/mm3 (4.0-10.0)
[2022-05-31 18:01] LABS: ALBUMIN 3.3 g/dl (3.4-5.0); CALCIUM 8.9 mg/dL (8.5-10.1)
[2022-05-31 18:03] LABS: BLOOD UREA NITROGEN 16.4 mg/dL (7-18)
[2022-05-31 18:05] LABS: CREATININE 0.4 mg/dL (0.55-1.3)
[2022-05-31 18:06] LABS: BILIRUBIN,TOTAL 0.2 mg/dL (0.2-1)
[2022-05-31 18:11] LABS: ALLENS TEST POSITIVE; ARTERIAL BLD GAS O2 SATURATION 97.6 % (95-98); ARTERIAL BLOOD GAS BASE EXCESS 8.1 mmol/L (-2-2); ARTERIAL BLOOD GAS PO2 104.1 mmHg (80-100); ARTERIAL BLOOD GAS pH 7.385 (7.350-7.450)
[2022-05-31 18:12] LABS: ANISOCYTOSIS 1+; MACROCYTOSIS 0
[2022-05-31 18:12] LABS: VENT MODE PSV; VENT RATE 16
[2022-06-01] MEDS: PIPERACILLIN/TAZOB 2.25 GM 2.25 GM in DEXTROSE 5%-WATER - 50 ML IVPB SCH ×3 (02:00→17:20)
[2022-06-01] MEDS: ALBUTEROL SO4 2.5/IPRATROPIUM 0.5 INH SOL 3 ML VIAL.NEB. NEB SCH ×4 (08:04→20:22)
[2022-06-01] MEDS: SCOPOLAMINE HYDROBROMIDE 1 PATCH PATCH.TD72 TD SCH (09:56)
[2022-06-01] MEDS: PANTOPRAZOLE SODIUM 40 MG VIAL IVPUSH SCH (10:02)
[2022-06-01] MEDS: methylPREDNISolone NA SUCC 40 MG/1 ML VIAL IVPUSH SCH (10:08)
[2022-06-01] MEDS: HEPARIN NA (PORCINE) 5,000 UNITS/ML 1ML VIAL SQ SCH ×2 (10:08→21:14)
[2022-06-01 10:46] LABS: HEMATOCRIT 36.1 % (32.4-45.2); HEMOGLOBIN 11.6 GM/dL (10.7-15.3); MCH 30.6 pg (25.7-33.7); MEAN CELL VOLUME 95.5 fl (80-96); MEAN PLT VOLUME 8.5 fl (7.5-11.1); PLATELET COUNT 240 10^3/uL (134-434); RBC 3.78 M/mm3 (3.60-5.2); RDW 13.5 % (11.6-15.6); WHITE BLOOD COUNT 11.7 K/mm3 (4.0-10.0)
[2022-06-01 11:23] LABS: ALBUMIN 3.2 g/dl (3.4-5.0); BLOOD UREA NITROGEN 17.9 mg/dL (7-18); CALCIUM 9.3 mg/dL (8.5-10.1)
[2022-06-01 11:26] LABS: CREATININE 0.2 mg/dL (0.55-1.3)
[2022-06-01 11:27] LABS: BILIRUBIN,TOTAL 0.3 mg/dL (0.2-1); TOT PROT 6.4 g/dl (6.4-8.2)
[2022-06-02] MEDS: PIPERACILLIN/TAZOB 2.25 GM 2.25 GM in DEXTROSE 5%-WATER - 50 ML IVPB SCH ×3 (01:29→18:14)
[2022-06-02] MEDS: ALBUTEROL SO4 2.5/IPRATROPIUM 0.5 INH SOL 3 ML VIAL.NEB. NEB SCH ×4 (07:30→20:54)
[2022-06-02] MEDS: HEPARIN NA (PORCINE) 5,000 UNITS/ML 1ML VIAL SQ SCH ×2 (10:44→22:01)
[2022-06-02 11:54] LABS: HEMATOCRIT 35.3 % (32.4-45.2); HEMOGLOBIN 11.6 GM/dL (10.7-15.3); MCH 30.8 pg (25.7-33.7); MCHC 32.9 g/dl (32.0-36.0); MEAN CELL VOLUME 93.5 fl (80-96); MEAN PLT VOLUME 8.6 fl (7.5-11.1); PLATELET COUNT 265 10^3/uL (134-434); RBC 3.77 M/mm3 (3.60-5.2); RDW 13.4 % (11.6-15.6); WHITE BLOOD COUNT 6.9 K/mm3 (4.0-10.0)
[2022-06-02] MEDS: methylPREDNISolone NA SUCC 40 MG/1 ML VIAL IVPUSH SCH (11:56)
[2022-06-02] MEDS: PANTOPRAZOLE SODIUM 40 MG VIAL IVPUSH SCH (11:57)
[2022-06-02 12:18] LABS: BLOOD UREA NITROGEN 14.1 mg/dL (7-18); CALCIUM 9.2 mg/dL (8.5-10.1)
[2022-06-02 12:20] LABS: CREATININE 0.2 mg/dL (0.55-1.3); PHOSPHOROUS 3.2 mg/dL (2.5-4.9)
[2022-06-02 12:22] LABS: BILIRUBIN,TOTAL 0.2 mg/dL (0.2-1); MAGNESIUM 2.3 mg/dL (1.8-2.4); TOT PROT 6.6 g/dl (6.4-8.2)
[2022-06-02] MEDS ORDERED: KCL 10 MEQ IVPB 10 MEQ/100 ML INFUS.BAG IVPB SCH (22:15)
[2022-06-03] MEDS: PIPERACILLIN/TAZOB 2.25 GM 2.25 GM in DEXTROSE 5%-WATER - 50 ML IVPB SCH ×3 (01:23→17:59)
[2022-06-03] MEDS: ALBUTEROL SO4 2.5/IPRATROPIUM 0.5 INH SOL 3 ML VIAL.NEB. NEB SCH ×4 (07:30→20:31)
[2022-06-03] MEDS: methylPREDNISolone NA SUCC 40 MG/1 ML VIAL IVPUSH SCH (09:30)
[2022-06-03 09:31] LABS: HEMATOCRIT 36.4 % (32.4-45.2); MCH 30.8 pg (25.7-33.7); MCHC 32.9 g/dl (32.0-36.0); MEAN CELL VOLUME 93.8 fl (80-96); MEAN PLT VOLUME 9.2 fl (7.5-11.1); PLATELET COUNT 273 10^3/uL (134-434); RBC 3.88 M/mm3 (3.60-5.2); RDW 13.4 % (11.6-15.6); WHITE BLOOD COUNT 9.1 K/mm3 (4.0-10.0)
[2022-06-03] MEDS: HEPARIN NA (PORCINE) 5,000 UNITS/ML 1ML VIAL SQ SCH ×2 (09:31→23:15)
[2022-06-03] MEDS: PANTOPRAZOLE SODIUM 40 MG VIAL IVPUSH SCH (09:32)
[2022-06-03 09:48] LABS: ALBUMIN 3.2 g/dl (3.4-5.0); CALCIUM 8.8 mg/dL (8.5-10.1)
[2022-06-03 09:49] LABS: BLOOD UREA NITROGEN 10.4 mg/dL (7-18)
[2022-06-03 09:53] LABS: BILIRUBIN,TOTAL 0.2 mg/dL (0.2-1); CREATININE 0.2 mg/dL (0.55-1.3); TOT PROT 6.7 g/dl (6.4-8.2)
[2022-06-03] MEDS: AMINO ACIDS 4.25%/D5W 1,000 ML IV SCH (11:10)
[2022-06-03] MEDS ORDERED: POTASSIUM CHLORIDE ORAL LIQUID 20 MEQ/15 ML GT ONE (14:25)
[2022-06-04] MEDS: PIPERACILLIN/TAZOB 2.25 GM 2.25 GM in DEXTROSE 5%-WATER - 50 ML IVPB SCH ×3 (01:42→18:15)
[2022-06-04] MEDS: SCOPOLAMINE HYDROBROMIDE 1 PATCH PATCH.TD72 TD SCH (09:04)
[2022-06-04] MEDS: methylPREDNISolone NA SUCC 40 MG/1 ML VIAL IVPUSH SCH (09:50)
[2022-06-04] MEDS: HEPARIN NA (PORCINE) 5,000 UNITS/ML 1ML VIAL SQ SCH ×2 (09:50→23:13)
[2022-06-04] MEDS: AMINO ACIDS 4.25%/D5W 1,000 ML IV SCH ×2 (09:50→11:03)
[2022-06-04] MEDS: PANTOPRAZOLE SODIUM 40 MG VIAL IVPUSH SCH (09:50)
[2022-06-04] MEDS ORDERED: POTASSIUM CHLORIDE 20 MEQ in AMINO ACIDS 4.25%/D5W 1,000 ML IV ONE (11:15)
[2022-06-04 13:35] LABS: HEMATOCRIT 37.9 % (32.4-45.2); HEMOGLOBIN 12.4 GM/dL (10.7-15.3); MCH 30.9 pg (25.7-33.7); MCHC 32.8 g/dl (32.0-36.0); MEAN CELL VOLUME 94.2 fl (80-96); MEAN PLT VOLUME 8.8 fl (7.5-11.1); PLATELET COUNT 279 10^3/uL (134-434); RBC 4.02 M/mm3 (3.60-5.2); RDW 13.1 % (11.6-15.6); WHITE BLOOD COUNT 7.5 K/mm3 (4.0-10.0)
[2022-06-04 13:36] LABS: ALBUMIN 3.4 g/dl (3.4-5.0); BLOOD UREA NITROGEN 17.9 mg/dL (7-18)
[2022-06-04 13:38] LABS: CREATININE 0.2 mg/dL (0.55-1.3)
[2022-06-04 13:40] LABS: BILIRUBIN,TOTAL 0.4 mg/dL (0.2-1); TOT PROT 7.2 g/dl (6.4-8.2)
[2022-06-05] MEDS: PIPERACILLIN/TAZOB 2.25 GM 2.25 GM in DEXTROSE 5%-WATER - 50 ML IVPB SCH ×3 (03:41→17:27)
[2022-06-05] MEDS: HEPARIN NA (PORCINE) 5,000 UNITS/ML 1ML VIAL SQ SCH ×2 (10:55→23:13)
[2022-06-05] MEDS: methylPREDNISolone NA SUCC 40 MG/1 ML VIAL IVPUSH SCH (10:55)
[2022-06-05] MEDS: PANTOPRAZOLE SODIUM 40 MG VIAL IVPUSH SCH (10:55)
[2022-06-05] MEDS: ALBUTEROL SO4 2.5/IPRATROPIUM 0.5 INH SOL 3 ML VIAL.NEB. NEB SCH ×3 (12:15→19:56)
[2022-06-05 12:47] LABS: CALCIUM 9.5 mg/dL (8.5-10.1)
[2022-06-05 12:48] LABS: ALBUMIN 3.3 g/dl (3.4-5.0); BLOOD UREA NITROGEN 16.9 mg/dL (7-18); HEMATOCRIT 39.8 % (32.4-45.2); HEMOGLOBIN 13.4 GM/dL (10.7-15.3); MAGNESIUM 2.3 mg/dL (1.8-2.4); MCH 31.4 pg (25.7-33.7); MCHC 33.6 g/dl (32.0-36.0); MEAN CELL VOLUME 93.7 fl (80-96); MEAN PLT VOLUME 8.6 fl (7.5-11.1); PLATELET COUNT 251 10^3/uL (134-434); RBC 4.25 M/mm3 (3.60-5.2); RDW 13.3 % (11.6-15.6); WHITE BLOOD COUNT 6.3 K/mm3 (4.0-10.0)
[2022-06-05 12:51] LABS: CREATININE 0.3 mg/dL (0.55-1.3)
[2022-06-05 12:53] LABS: BILIRUBIN,TOTAL 0.2 mg/dL (0.2-1); TOT PROT 7.1 g/dl (6.4-8.2)
[2022-06-05] MEDS: KCL 10 MEQ IVPB 10 MEQ/100 ML INFUS.BAG IVPB SCH ×2 (15:43→16:44)
[2022-06-06] MEDS: PIPERACILLIN/TAZOB 2.25 GM 2.25 GM in DEXTROSE 5%-WATER - 50 ML IVPB SCH ×2 (02:04→10:26)
[2022-06-06] MEDS: ALBUTEROL SO4 2.5/IPRATROPIUM 0.5 INH SOL 3 ML VIAL.NEB. NEB SCH ×4 (08:16→20:38)
[2022-06-06] MEDS ORDERED: PATIENT'S OWN MEDICATION (NON-FORMULARY) (Protein Supplement [Promod] 946 ML Liquid) GT SCH (10:00)
[2022-06-06] MEDS: PANTOPRAZOLE SODIUM 40 MG VIAL IVPUSH SCH (10:24)
[2022-06-06] MEDS: HEPARIN NA (PORCINE) 5,000 UNITS/ML 1ML VIAL SQ SCH ×2 (10:24→21:41)
[2022-06-06] MEDS: methylPREDNISolone NA SUCC 40 MG/1 ML VIAL IVPUSH SCH (10:26)
[2022-06-06] MEDS: BISACODYL 10 MG SUPP.RECT RC SCH (10:28)
[2022-06-06 11:01] LABS: HEMATOCRIT 38.7 % (32.4-45.2); MCH 31.5 pg (25.7-33.7); MCHC 33.6 g/dl (32.0-36.0); MEAN CELL VOLUME 93.9 fl (80-96); MEAN PLT VOLUME 8.4 fl (7.5-11.1); PLATELET COUNT 224 10^3/uL (134-434); RBC 4.12 M/mm3 (3.60-5.2); RDW 13.1 % (11.6-15.6); WHITE BLOOD COUNT 6.2 K/mm3 (4.0-10.0)
[2022-06-06 11:19] LABS: BLOOD UREA NITROGEN 10.9 mg/dL (7-18); CALCIUM 9.5 mg/dL (8.5-10.1)
[2022-06-06 11:20] LABS: ALBUMIN 3.2 g/dl (3.4-5.0)
[2022-06-06 11:22] LABS: CREATININE 0.2 mg/dL (0.55-1.3)
[2022-06-06 11:24] LABS: BILIRUBIN,TOTAL 0.2 mg/dL (0.2-1); TOT PROT 6.7 g/dl (6.4-8.2)
[2022-06-06] MEDS: MULTIVIT-MINERALS ORAL LIQUID GT SCH (21:40)
[2022-06-07] MEDS: ALBUTEROL SO4 2.5/IPRATROPIUM 0.5 INH SOL 3 ML VIAL.NEB. NEB SCH ×4 (07:34→20:21)
[2022-06-07] MEDS: SCOPOLAMINE HYDROBROMIDE 1 PATCH PATCH.TD72 TD SCH (09:15)
[2022-06-07] MEDS: HEPARIN NA (PORCINE) 5,000 UNITS/ML 1ML VIAL SQ SCH ×2 (10:32→22:05)
[2022-06-07] MEDS: methylPREDNISolone NA SUCC 40 MG/1 ML VIAL IVPUSH SCH (10:32)
[2022-06-07] MEDS: PANTOPRAZOLE SODIUM 40 MG VIAL IVPUSH SCH (10:32)
[2022-06-07 10:33] LABS: HEMATOCRIT 37.9 % (32.4-45.2); HEMOGLOBIN 12.7 GM/dL (10.7-15.3); MCH 31.4 pg (25.7-33.7); MCHC 33.4 g/dl (32.0-36.0); MEAN CELL VOLUME 93.9 fl (80-96); MEAN PLT VOLUME 8.4 fl (7.5-11.1); PLATELET COUNT 227 10^3/uL (134-434); RBC 4.04 M/mm3 (3.60-5.2); RDW 13.1 % (11.6-15.6); WHITE BLOOD COUNT 5.5 K/mm3 (4.0-10.0)
[2022-06-07 11:08] LABS: ALBUMIN 3.2 g/dl (3.4-5.0); BLOOD UREA NITROGEN 14.4 mg/dL (7-18); CALCIUM 9.3 mg/dL (8.5-10.1)
[2022-06-07 11:11] LABS: CREATININE 0.2 mg/dL (0.55-1.3)
[2022-06-07 11:13] LABS: BILIRUBIN,TOTAL 0.3 mg/dL (0.2-1); TOT PROT 6.8 g/dl (6.4-8.2)
[2022-06-07] MEDS ORDERED: methylPREDNISolone NA SUCC 40 MG/1 ML VIAL IVPUSH SCH (15:11)
[2022-06-07] MEDS: MULTIVIT-MINERALS ORAL LIQUID GT SCH (22:06)
[2022-06-08] MEDS: ALBUTEROL SO4 2.5/IPRATROPIUM 0.5 INH SOL 3 ML VIAL.NEB. NEB SCH ×4 (08:05→20:22)
[2022-06-08] MEDS: BISACODYL 10 MG SUPP.RECT RC SCH (11:02)
[2022-06-08] MEDS: HEPARIN NA (PORCINE) 5,000 UNITS/ML 1ML VIAL SQ SCH ×2 (11:02→22:25)
[2022-06-08] MEDS: PANTOPRAZOLE SODIUM 40 MG VIAL IVPUSH SCH (11:02)
[2022-06-08 12:06] LABS: HEMATOCRIT 40.6 % (32.4-45.2); HEMOGLOBIN 13.6 GM/dL (10.7-15.3); MCH 31.5 pg (25.7-33.7); MCHC 33.5 g/dl (32.0-36.0); MEAN CELL VOLUME 94.2 fl (80-96); PLATELET COUNT 234 10^3/uL (134-434); RBC 4.31 M/mm3 (3.60-5.2); RDW 13.5 % (11.6-15.6); WHITE BLOOD COUNT 6.3 K/mm3 (4.0-10.0)
[2022-06-08 12:45] LABS: ALBUMIN 3.7 g/dl (3.4-5.0); BILIRUBIN,TOTAL 0.9 mg/dL (0.2-1); BLOOD UREA NITROGEN 14.5 mg/dL (7-18); CALCIUM 10.1 mg/dL (8.5-10.1); CREATININE 0.3 mg/dL (0.55-1.3); TOT PROT 7.5 g/dl (6.4-8.2)
[2022-06-08] MEDS: MULTIVIT-MINERALS ORAL LIQUID GT SCH (22:25)
[2022-06-09] MEDS: ALBUTEROL SO4 2.5/IPRATROPIUM 0.5 INH SOL 3 ML VIAL.NEB. NEB SCH ×4 (08:22→20:25)
[2022-06-09] MEDS: predniSONE 20 MG TABLET (UD) GT SCH (10:03)
[2022-06-09] MEDS: PANTOPRAZOLE SODIUM 40 MG VIAL IVPUSH SCH (10:03)
[2022-06-09] MEDS: HEPARIN NA (PORCINE) 5,000 UNITS/ML 1ML VIAL SQ SCH ×2 (10:03→23:03)
[2022-06-09 11:17] LABS: CALCIUM 9.7 mg/dL (8.5-10.1)
[2022-06-09 11:18] LABS: BLOOD UREA NITROGEN 19.5 mg/dL (7-18)
[2022-06-09 11:19] LABS: CREATININE 0.2 mg/dL (0.55-1.3)
[2022-06-09] MEDS: MULTIVIT-MINERALS ORAL LIQUID GT SCH ×2 (23:03)
[2022-06-10] MEDS: TUBE FEED DECLOGGING SOLUTION 12,000 UNITS NR SCH ×4 (07:07→17:41)
[2022-06-10] MEDS: ALBUTEROL SO4 2.5/IPRATROPIUM 0.5 INH SOL 3 ML VIAL.NEB. NEB SCH (08:09)
[2022-06-10] MEDS: predniSONE 20 MG TABLET (UD) GT SCH (09:06)
[2022-06-10] MEDS: BISACODYL 10 MG SUPP.RECT RC SCH (09:06)
[2022-06-10] MEDS: SCOPOLAMINE HYDROBROMIDE 1 PATCH PATCH.TD72 TD SCH (09:06)
[2022-06-10] MEDS: PANTOPRAZOLE SODIUM 40 MG VIAL IVPUSH SCH (09:06)
[2022-06-10] MEDS: HEPARIN NA (PORCINE) 5,000 UNITS/ML 1ML VIAL SQ SCH ×2 (09:07→21:58)
[2022-06-10 11:11] LABS: CALCIUM 9.8 mg/dL (8.5-10.1)
[2022-06-10 11:13] LABS: ALBUMIN 3.6 g/dl (3.4-5.0); BLOOD UREA NITROGEN 15.6 mg/dL (7-18)
[2022-06-10 11:15] LABS: CREATININE 0.2 mg/dL (0.55-1.3)
[2022-06-10 11:17] LABS: BILIRUBIN,TOTAL 0.6 mg/dL (0.2-1); TOT PROT 7.6 g/dl (6.4-8.2)
[2022-06-10] MEDS: MULTIVIT-MINERALS ORAL LIQUID GT SCH (22:48)
[2022-06-11] MEDS: PANTOPRAZOLE SODIUM 40 MG VIAL IVPUSH SCH (09:29)
[2022-06-11] MEDS: HEPARIN NA (PORCINE) 5,000 UNITS/ML 1ML VIAL SQ SCH ×2 (09:29→21:55)
[2022-06-11] MEDS: TUBE FEED DECLOGGING SOLUTION 12,000 UNITS NR SCH ×3 (13:29→18:24)
[2022-06-11] MEDS: MULTIVIT-MINERALS ORAL LIQUID GT SCH (21:55)
[2022-06-12] MEDS: TUBE FEED DECLOGGING SOLUTION 12,000 UNITS NR SCH ×3 (10:55→18:06)
[2022-06-12] MEDS: HEPARIN NA (PORCINE) 5,000 UNITS/ML 1ML VIAL SQ SCH ×2 (10:56→21:30)
[2022-06-12] MEDS: BISACODYL 10 MG SUPP.RECT RC SCH (10:56)
[2022-06-12] MEDS: predniSONE 5 MG/5 ML ORAL SOLN- UNIT-DOSE CUP GT SCH (10:56)
[2022-06-12] MEDS: PANTOPRAZOLE SODIUM 40 MG VIAL IVPUSH SCH (10:56)
[2022-06-12] MEDS: MULTIVIT-MINERALS ORAL LIQUID GT SCH (21:30)
[2022-06-13] MEDS: HEPARIN NA (PORCINE) 5,000 UNITS/ML 1ML VIAL SQ SCH ×2 (09:38→21:12)
[2022-06-13] MEDS: PANTOPRAZOLE SODIUM 40 MG VIAL IVPUSH SCH (09:38)
[2022-06-13] MEDS: predniSONE 5 MG/5 ML ORAL SOLN- UNIT-DOSE CUP GT SCH (09:38)
[2022-06-13] MEDS: TUBE FEED DECLOGGING SOLUTION 12,000 UNITS NR SCH ×3 (09:39→17:30)
[2022-06-13] MEDS: SCOPOLAMINE HYDROBROMIDE 1 PATCH PATCH.TD72 TD SCH (09:39)
[2022-06-13] MEDS: MULTIVIT-MINERALS ORAL LIQUID GT SCH (21:13)
[2022-06-14] MEDS: HEPARIN NA (PORCINE) 5,000 UNITS/ML 1ML VIAL SQ SCH ×2 (09:53→21:29)
[2022-06-14] MEDS: BISACODYL 10 MG SUPP.RECT RC SCH (09:53)
[2022-06-14] MEDS: PANTOPRAZOLE SODIUM 40 MG VIAL IVPUSH SCH (09:53)
[2022-06-14] MEDS: TUBE FEED DECLOGGING SOLUTION 12,000 UNITS NR SCH ×3 (12:38→18:07)
[2022-06-14] MEDS: MULTIVIT-MINERALS ORAL LIQUID GT SCH (21:47)
[2022-06-15] MEDS: HEPARIN NA (PORCINE) 5,000 UNITS/ML 1ML VIAL SQ SCH ×2 (09:20→22:12)
[2022-06-15] MEDS: PANTOPRAZOLE SODIUM 40 MG VIAL IVPUSH SCH (09:20)
[2022-06-15] MEDS: TUBE FEED DECLOGGING SOLUTION 12,000 UNITS NR SCH ×3 (09:21→16:40)
[2022-06-15] MEDS: MULTIVIT-MINERALS ORAL LIQUID GT SCH (22:12)
[2022-06-16] MEDS: BISACODYL 10 MG SUPP.RECT RC SCH (09:34)
[2022-06-16] MEDS: TUBE FEED DECLOGGING SOLUTION 12,000 UNITS NR SCH ×3 (09:35→17:28)
[2022-06-16] MEDS: HEPARIN NA (PORCINE) 5,000 UNITS/ML 1ML VIAL SQ SCH ×2 (09:43→21:32)
[2022-06-16] MEDS: SCOPOLAMINE HYDROBROMIDE 1 PATCH PATCH.TD72 TD SCH (09:44)
[2022-06-16] MEDS: FAMOTIDINE 40 MG/5 ML ORAL SUSPENSION GT SCH ×2 (10:43→22:36)
[2022-06-16] MEDS: MULTIVIT-MINERALS ORAL LIQUID GT SCH (21:32)
[2022-06-17] MEDS: TUBE FEED DECLOGGING SOLUTION 12,000 UNITS NR SCH ×3 (10:41→16:46)
[2022-06-17] MEDS: FAMOTIDINE 40 MG/5 ML ORAL SUSPENSION GT SCH ×2 (10:41→22:23)
[2022-06-17] MEDS: HEPARIN NA (PORCINE) 5,000 UNITS/ML 1ML VIAL SQ SCH ×2 (10:41→22:23)
[2022-06-17] MEDS: MULTIVIT-MINERALS ORAL LIQUID GT SCH (22:22)
[2022-06-18] MEDS: FAMOTIDINE 40 MG/5 ML ORAL SUSPENSION GT SCH ×2 (09:04→21:55)
[2022-06-18] MEDS: BISACODYL 10 MG SUPP.RECT RC SCH (09:04)
[2022-06-18] MEDS: HEPARIN NA (PORCINE) 5,000 UNITS/ML 1ML VIAL SQ SCH (09:05)
[2022-06-18] MEDS: TUBE FEED DECLOGGING SOLUTION 12,000 UNITS NR SCH ×3 (09:10→17:58)
[2022-06-18 18:43] VITALS: RESP 18
[2022-06-18] MEDS: MULTIVIT-MINERALS ORAL LIQUID GT SCH (21:55)
[2022-06-19] MEDS: FAMOTIDINE 40 MG/5 ML ORAL SUSPENSION GT SCH (09:43)
[2022-06-19] MEDS: SCOPOLAMINE HYDROBROMIDE 1 PATCH PATCH.TD72 TD SCH (09:43)
[2022-06-19] MEDS: TUBE FEED DECLOGGING SOLUTION 12,000 UNITS NR SCH ×2 (09:44→13:05)
[2022-06-19 15:50] VITALS: BP 116/72; PULSE 82; TEMP 98
== END 2022-06-19 16:18 | disposition home or self-care (01) | DRG 207 ==
LOC: JER 11:43 → JERBED 17:23 → JICU 18:36 → J5S 05-29 13:09
PROVIDERS: ADMIT Internal Medicine Pulmonary Disease; ATTEND Internal Medicine
PROC: 0BH17EZ Insertion of Endotracheal Airway into Trachea, Via Natural or Artificial Opening (ICD-10-PCS; principal; 2022-05-22)
PROC: 5A1955Z Respiratory Ventilation, Greater than 96 Consecutive Hours (ICD-10-PCS; 2022-05-22)
PROC: 5A09358 Assistance with Respiratory Ventilation, Less than 24 Consecutive Hours, Intermittent Positive Airway Pressure (ICD-10-PCS; 2022-06-15)
DX: J96.02 Acute respiratory failure with hypercapnia (principal); J69.0 Pneumonitis due to inhalation of food and vomit; G91.9 Hydrocephalus, unspecified; J45.901 Unspecified asthma with (acute) exacerbation; E87.20 Acidosis, unspecified; Q67.5 Congenital deformity of spine; J98.11 Atelectasis; J96.01 Acute respiratory failure with hypoxia; E11.9 Type 2 diabetes mellitus without complications; I11.0 Hypertensive heart disease with heart failure; I50.9 Heart failure, unspecified; R13.19 Other dysphagia; B96.20 Unspecified Escherichia coli [E. coli] as the cause of diseases classified elsewhere; J44.9 Chronic obstructive pulmonary disease, unspecified; R00.0 Tachycardia, unspecified; G40.909 Epilepsy, unspecified, not intractable, without status epilepticus; Z95.0 Presence of cardiac pacemaker; Z91.52 Personal history of nonsuicidal self-harm; Z93.1 Gastrostomy status; Z74.01 Bed confinement status
CPT/HCPCS: 0241U-QW; 36415; 36600; 71045-TC-FY; 71250-TC; 74018-TC-FY; 74150-TC; 80048; 80053; 81003; 82803; 82962; 83735; 83880; 84100; 84484; 85025; 85027; 85379; 85610; 87040; 87070; 87077; 87086; 87186; 87205; 87633; 87899; 93005; 93010; 94002; 94640; 94660; 94761; 97161-GP; 99291; C9803-CS; J1644; U0003; U0005

== ENCOUNTER 2022-10-04 11:21 | Inpatient (IN) | payer OTHER ==
[2022-10-04 12:52] LABS: BASO % 0.5 % (0-2.0); EOS % 1.8 % (0-4.5); HEMATOCRIT 42.8 % (32.4-45.2); MCH 31.4 pg (25.7-33.7); MCHC 32.8 g/dl (32.0-36.0); MEAN CELL VOLUME 95.8 fl (80-96); MEAN PLT VOLUME 9.1 fl (7.5-11.1); MONO % 8.8 % (3.8-10.2); NEUT % 78.9 % (42.8-82.8); PLATELET COUNT 184 10^3/uL (134-434); RBC 4.47 M/mm3 (3.60-5.2); RDW 13.4 % (11.6-15.6); VENOUS BASE EXCESS 11.3 mmol/L (-2-2); VENOUS O2 SATURATION 66.4 % (70-80); VENOUS PCO2 99.3 mmHg (38-52); WHITE BLOOD COUNT 10.8 K/mm3 (4.0-10.0)
[2022-10-04 12:57] LABS: VENOUS PH 7.274 (7.310-7.410)
[2022-10-04 13:00] LABS: INR 1.01 (0.83-1.09); PROTHROMBIN TIME (PATIENT) 11.7 SEC (9.7-13.0)
[2022-10-04 13:19] LABS: CHLORIDE 86 mmol/L (98-107); SODIUM 132 mmol/L (136-145)
[2022-10-04 13:20] LABS: CALCIUM 9.1 mg/dL (8.5-10.1)
[2022-10-04 13:22] LABS: ALBUMIN 3.4 g/dl (3.4-5.0); ANION GAP 2 MMOL/L (8-16); BLOOD UREA NITROGEN 13.1 mg/dL (7-18); CO2 44 mmol/L (21-32); GLUCOSE,RANDOM 102 mg/dL (74-106)
[2022-10-04 13:25] LABS: CREATININE 0.3 mg/dL (0.55-1.3); SGOT/AST 28 U/L (15-37); SGPT/ALT 27 U/L (13-61)
[2022-10-04 13:26] LABS: BILIRUBIN,TOTAL 0.3 mg/dL (0.2-1); TOT PROT 7.1 g/dl (6.4-8.2)
[2022-10-04 13:28] LABS: ALK PHOS 110 U/L (45-117)
[2022-10-04 15:50] LABS: VENOUS BASE EXCESS 8.4 mmol/L (-2-2); VENOUS PH 7.279 (7.310-7.410)
[2022-10-04 17:55] LABS: ARTERIAL BLD GAS O2 SATURATION 95.8 % (95-98); ARTERIAL BLOOD GAS BASE EXCESS 14.8 mmol/L (-2-2); ARTERIAL BLOOD GAS pH 7.328 (7.350-7.450)
[2022-10-04] MEDS ORDERED: ALBUTEROL SO4 2.5/IPRATROPIUM 0.5 INH SOL 3 ML VIAL.NEB. NEB PRN (18:34)
[2022-10-04] MEDS ORDERED: SCOPOLAMINE HYDROBROMIDE 1 PATCH PATCH.TD72 TD SCH (18:45)
[2022-10-04] MEDS ORDERED: CEFTRIAXONE 1 GM in DEXTROSE 5%-WATER - 50 ML IVPB ONE (18:45)
[2022-10-04] MEDS ORDERED: CEFTRIAXONE 1 GM/50 ML BAG ONE (18:57)
[2022-10-04] MEDS: DOXYCYCLINE MONOHYDRATE 25 MG/5 ML SUSPENSION GT SCH (20:05)
[2022-10-04] MEDS ORDERED: MULTIVIT-MINERALS ORAL LIQUID GT SCH (22:00)
[2022-10-04] MEDS: SENNOSIDES 8.8 MG/5 ML SYRUP GT SCH (23:09)
[2022-10-04 23:57] LABS: VENOUS BASE EXCESS 17.3 mmol/L (-2-2); VENOUS O2 SATURATION 73.5 % (70-80); VENOUS PH 7.342 (7.310-7.410)
[2022-10-05 00:04] LABS: VENOUS PCO2 91.1 mmHg (38-52)
[2022-10-05 08:24] LABS: CALCIUM 9.1 mg/dL (8.5-10.1)
[2022-10-05 08:26] LABS: BLOOD UREA NITROGEN 9.8 mg/dL (7-18)
[2022-10-05 08:28] LABS: CREATININE 0.2 mg/dL (0.55-1.3)
[2022-10-05 09:04] LABS: HEMATOCRIT 41.5 % (32.4-45.2); HEMOGLOBIN 13.7 GM/dL (10.7-15.3); MCH 31.5 pg (25.7-33.7); MEAN CELL VOLUME 95.4 fl (80-96); MEAN PLT VOLUME 10.1 fl (7.5-11.1); PLATELET COUNT 146 10^3/uL (134-434); RBC 4.35 M/mm3 (3.60-5.2); RDW 13.6 % (11.6-15.6); WHITE BLOOD COUNT 7.9 K/mm3 (4.0-10.0)
[2022-10-05] MEDS ORDERED: PATIENT'S OWN MEDICATION (NON-FORMULARY) (Protein Supplement [Promod] 946 ML Liquid) GT SCH (10:00)
[2022-10-05] MEDS ORDERED: ENOXAPARIN NA (PORCINE) 40 MG/0.4 ML DISP.SYRIN SQ SCH (10:00)
[2022-10-05] MEDS ORDERED: POTASSIUM CITRATE/CITRIC ACID 2 MEQ/ML ML GT SCH (10:00)
[2022-10-05] MEDS ORDERED: CEFTRIAXONE 1 GM in DEXTROSE 5%-WATER - 50 ML IVPB SCH (10:00)
[2022-10-05 10:01] LABS: ARTERIAL BLD GAS O2 SATURATION 90.5 % (95-98); ARTERIAL BLOOD GAS BASE EXCESS 16.5 mmol/L (-2-2); ARTERIAL BLOOD GAS PO2 62.7 mmHg (80-100); ARTERIAL BLOOD GAS pH 7.386 (7.350-7.450)
[2022-10-05 10:04] LABS: ALLENS TEST POSITIVE
[2022-10-05 10:05] LABS: VENT MODE S/T; VENT RATE 25
[2022-10-05] MEDS: SENNOSIDES 8.8 MG/5 ML SYRUP GT SCH ×2 (10:06→21:28)
[2022-10-05] MEDS: DOXYCYCLINE MONOHYDRATE 25 MG/5 ML SUSPENSION GT SCH ×2 (10:07→17:35)
[2022-10-05] MEDS ORDERED: ALBUTEROL SO4 2.5/IPRATROPIUM 0.5 INH SOL 3 ML VIAL.NEB. NEB PRN (19:27)
[2022-10-05] MEDS: MULTIVIT-MINERALS ORAL LIQUID GT SCH (21:27)
[2022-10-06] MEDS: AMINO ACIDS/PROTEIN HYDROLYS 30 ML LIQUID.PKT PO SCH (08:47)
[2022-10-06] MEDS: POTASSIUM CITRATE/CITRIC ACID 2 MEQ/ML ML GT SCH (10:52)
[2022-10-06] MEDS: ENOXAPARIN NA (PORCINE) 40 MG/0.4 ML DISP.SYRIN SQ SCH (10:52)
[2022-10-06] MEDS: SENNOSIDES 8.8 MG/5 ML SYRUP GT SCH ×2 (10:53→22:07)
[2022-10-06] MEDS: DOXYCYCLINE MONOHYDRATE 25 MG/5 ML SUSPENSION GT SCH ×2 (10:54→17:06)
[2022-10-06] MEDS: MULTIVIT-MINERALS ORAL LIQUID GT SCH (22:07)
[2022-10-07 06:54] LABS: ARTERIAL BLD GAS O2 SATURATION 97.9 % (95-98); ARTERIAL BLOOD GAS BASE EXCESS 9.8 mmol/L (-2-2); ARTERIAL BLOOD GAS PO2 111.5 mmHg (80-100); ARTERIAL BLOOD GAS pH 7.382 (7.350-7.450)
[2022-10-07 06:55] LABS: ALLENS TEST POSITIVE; VENT MODE S/T
[2022-10-07 06:56] LABS: VENT RATE 25
[2022-10-07] MEDS: AMINO ACIDS/PROTEIN HYDROLYS 30 ML LIQUID.PKT PO SCH (08:04)
[2022-10-07 09:54] LABS: BASO % 0.7 % (0-2.0); EOS % 1.9 % (0-4.5); HEMATOCRIT 39.5 % (32.4-45.2); HEMOGLOBIN 13.8 GM/dL (10.7-15.3); LYMPH % 16.9 % (8-40); MEAN CELL VOLUME 94.3 fl (80-96); MEAN PLT VOLUME 9.2 fl (7.5-11.1); MONO % 10.9 % (3.8-10.2); NEUT % 69.6 % (42.8-82.8); RBC 4.19 M/mm3 (3.60-5.2); RDW 13.7 % (11.6-15.6); WHITE BLOOD COUNT 7.5 K/mm3 (4.0-10.0)
[2022-10-07 10:17] LABS: ALBUMIN 3.5 g/dl (3.4-5.0); BLOOD UREA NITROGEN 17.5 mg/dL (7-18); CALCIUM 9.4 mg/dL (8.5-10.1)
[2022-10-07 10:18] LABS: MAGNESIUM 2.2 mg/dL (1.8-2.4)
[2022-10-07 10:20] LABS: CREATININE 0.2 mg/dL (0.55-1.3); PHOSPHOROUS 3.3 mg/dL (2.5-4.9)
[2022-10-07 10:22] LABS: BILIRUBIN,TOTAL 0.4 mg/dL (0.2-1); TOT PROT 7.2 g/dl (6.4-8.2)
[2022-10-07] MEDS: ENOXAPARIN NA (PORCINE) 40 MG/0.4 ML DISP.SYRIN SQ SCH (10:34)
[2022-10-07] MEDS: SENNOSIDES 8.8 MG/5 ML SYRUP GT SCH ×2 (10:35→22:29)
[2022-10-07] MEDS: DOXYCYCLINE MONOHYDRATE 25 MG/5 ML SUSPENSION GT SCH (10:35)
[2022-10-07] MEDS: POTASSIUM CITRATE/CITRIC ACID 2 MEQ/ML ML GT SCH (10:36)
[2022-10-07 11:50] LABS: PLATELET COUNT 168 10^3/uL (134-434)
[2022-10-07] MEDS ORDERED: POTASSIUM CHLORIDE ORAL LIQUID 20 MEQ/15 ML PO ONE (14:19)
[2022-10-07] MEDS: AMOX TR/POTASSIUM CLAVULANATE 250 MG/5 ML BOTTLE GT SCH (18:49)
[2022-10-07] MEDS: SCOPOLAMINE HYDROBROMIDE 1 PATCH PATCH.TD72 TD SCH (18:50)
[2022-10-07] MEDS: MULTIVIT-MINERALS ORAL LIQUID GT SCH (22:29)
[2022-10-08] MEDS ORDERED: ACETAMINOPHEN 1000 MG/100 ML BAG IVPB ONE (00:33)
[2022-10-08] MEDS: AMINO ACIDS/PROTEIN HYDROLYS 30 ML LIQUID.PKT PO SCH (08:33)
[2022-10-08] MEDS: AMOX TR/POTASSIUM CLAVULANATE 250 MG/5 ML BOTTLE GT SCH ×2 (08:33→17:16)
[2022-10-08] MEDS: ENOXAPARIN NA (PORCINE) 40 MG/0.4 ML DISP.SYRIN SQ SCH (09:22)
[2022-10-08] MEDS: POTASSIUM CITRATE/CITRIC ACID 2 MEQ/ML ML GT SCH (09:26)
[2022-10-08] MEDS: SENNOSIDES 8.8 MG/5 ML SYRUP GT SCH ×2 (09:26→21:45)
[2022-10-08 10:01] LABS: HEMATOCRIT 44.8 % (32.4-45.2); MCH 31.7 pg (25.7-33.7); MCHC 33.5 g/dl (32.0-36.0); MEAN CELL VOLUME 94.7 fl (80-96); MEAN PLT VOLUME 8.8 fl (7.5-11.1); PLATELET COUNT 166 10^3/uL (134-434); RBC 4.73 M/mm3 (3.60-5.2); RDW 13.6 % (11.6-15.6); WHITE BLOOD COUNT 24.5 K/mm3 (4.0-10.0)
[2022-10-08 10:22] LABS: MAGNESIUM 2.1 mg/dL (1.8-2.4)
[2022-10-08 10:25] LABS: PHOSPHOROUS 4.3 mg/dL (2.5-4.9)
[2022-10-08 11:13] LABS: ANISOCYTOSIS 0; HELMET CELLS 0; HOWELL-JOLLY BODIES 0; MACROCYTOSIS 0; OVALOCYTE 0; ROULEAU 0; SICKELED CELLS 0; TARGET CELLS 0; TEAR DROP CELLS 0; TOXIC GRANULATION 0
[2022-10-08] MEDS: ACETAMINOPHEN 1000 MG/100 ML BAG IVPB PRN ×2 (12:55→21:43)
[2022-10-08] MEDS: MULTIVIT-MINERALS ORAL LIQUID GT SCH (21:44)
[2022-10-09] MEDS: ACETAMINOPHEN 1000 MG/100 ML BAG IVPB PRN (04:23)
[2022-10-09] MEDS: AMINO ACIDS/PROTEIN HYDROLYS 30 ML LIQUID.PKT PO SCH (08:29)
[2022-10-09] MEDS: POTASSIUM CITRATE/CITRIC ACID 2 MEQ/ML ML GT SCH ×2 (08:30→09:10)
[2022-10-09] MEDS: AMOX TR/POTASSIUM CLAVULANATE 250 MG/5 ML BOTTLE GT SCH ×2 (08:30→18:02)
[2022-10-09] MEDS: ENOXAPARIN NA (PORCINE) 40 MG/0.4 ML DISP.SYRIN SQ SCH ×2 (08:30→09:10)
[2022-10-09] MEDS: SENNOSIDES 8.8 MG/5 ML SYRUP GT SCH ×3 (08:31→22:23)
[2022-10-09 09:18] LABS: BASO % 0.3 % (0-2.0); EOS % 0.3 % (0-4.5); HEMATOCRIT 42.8 % (32.4-45.2); HEMOGLOBIN 13.8 GM/dL (10.7-15.3); LYMPH % 3.8 % (8-40); MCH 31.1 pg (25.7-33.7); MCHC 32.3 g/dl (32.0-36.0); MEAN CELL VOLUME 96.3 fl (80-96); MEAN PLT VOLUME 9.2 fl (7.5-11.1); NEUT % 90.6 % (42.8-82.8); PLATELET COUNT 163 10^3/uL (134-434); RBC 4.44 M/mm3 (3.60-5.2); RDW 13.8 % (11.6-15.6); WHITE BLOOD COUNT 18.5 K/mm3 (4.0-10.0)
[2022-10-09 10:02] LABS: ALBUMIN 3.4 g/dl (3.4-5.0); BLOOD UREA NITROGEN 29.4 mg/dL (7-18); CALCIUM 9.6 mg/dL (8.5-10.1)
[2022-10-09 10:05] LABS: CREATININE 0.2 mg/dL (0.55-1.3)
[2022-10-09 10:07] LABS: BILIRUBIN,TOTAL 0.5 mg/dL (0.2-1); TOT PROT 7.1 g/dl (6.4-8.2)
[2022-10-09] MEDS ORDERED: POTASSIUM CHLORIDE ORAL LIQUID 20 MEQ/15 ML PO ONE (12:24)
[2022-10-09 15:15] LABS: ALLENS TEST POSITIVE; ARTERIAL BLD GAS O2 SATURATION 97.3 % (95-98); ARTERIAL BLOOD GAS BASE EXCESS 9.1 mmol/L (-2-2); ARTERIAL BLOOD GAS PO2 100.7 mmHg (80-100); ARTERIAL BLOOD GAS pH 7.371 (7.350-7.450)
[2022-10-09 15:16] LABS: VENT MODE ST; VENT RATE 25
[2022-10-09 15:37] VITALS: BMI 30.5
[2022-10-09] MEDS: MULTIVIT-MINERALS ORAL LIQUID GT SCH (22:24)
[2022-10-10 08:03] LABS: BASO % 0.2 % (0-2.0); EOS % 1.5 % (0-4.5); HEMATOCRIT 41.9 % (32.4-45.2); HEMOGLOBIN 13.7 GM/dL (10.7-15.3); LYMPH % 4.7 % (8-40); MCH 31.6 pg (25.7-33.7); MCHC 32.7 g/dl (32.0-36.0); MEAN CELL VOLUME 96.7 fl (80-96); MONO % 5.7 % (3.8-10.2); NEUT % 87.9 % (42.8-82.8); PLATELET COUNT 161 10^3/uL (134-434); RBC 4.33 M/mm3 (3.60-5.2); RDW 13.8 % (11.6-15.6); WHITE BLOOD COUNT 16.2 K/mm3 (4.0-10.0)
[2022-10-10 08:24] LABS: CALCIUM 9.7 mg/dL (8.5-10.1)
[2022-10-10 08:25] LABS: BLOOD UREA NITROGEN 24.8 mg/dL (7-18)
[2022-10-10 08:28] LABS: CREATININE 0.3 mg/dL (0.55-1.3)
[2022-10-10] MEDS: AMINO ACIDS/PROTEIN HYDROLYS 30 ML LIQUID.PKT PO SCH (09:10)
[2022-10-10] MEDS: ENOXAPARIN NA (PORCINE) 40 MG/0.4 ML DISP.SYRIN SQ SCH (09:10)
[2022-10-10] MEDS: SENNOSIDES 8.8 MG/5 ML SYRUP GT SCH ×2 (09:11→22:31)
[2022-10-10] MEDS: POTASSIUM CITRATE/CITRIC ACID 2 MEQ/ML ML GT SCH (09:12)
[2022-10-10] MEDS: AMOX TR/POTASSIUM CLAVULANATE 250 MG/5 ML BOTTLE GT SCH ×2 (09:13→17:24)
[2022-10-10] MEDS: SCOPOLAMINE HYDROBROMIDE 1 PATCH PATCH.TD72 TD SCH (17:58)
[2022-10-10] MEDS: ACETAMINOPHEN 650 MG/20.3 ML ORAL SOLUTION (CUPS) GT PRN (22:29)
[2022-10-10] MEDS: MULTIVIT-MINERALS ORAL LIQUID GT SCH (22:30)
[2022-10-11] MEDS: AMOX TR/POTASSIUM CLAVULANATE 250 MG/5 ML BOTTLE GT SCH ×2 (08:55→17:51)
[2022-10-11] MEDS: AMINO ACIDS/PROTEIN HYDROLYS 30 ML LIQUID.PKT PO SCH (08:55)
[2022-10-11] MEDS: POTASSIUM CITRATE/CITRIC ACID 2 MEQ/ML ML GT SCH (09:55)
[2022-10-11] MEDS: ENOXAPARIN NA (PORCINE) 40 MG/0.4 ML DISP.SYRIN SQ SCH (09:55)
[2022-10-11] MEDS: SENNOSIDES 8.8 MG/5 ML SYRUP GT SCH ×2 (09:56→21:35)
[2022-10-11 10:49] LABS: HEMATOCRIT 44.5 % (32.4-45.2); HEMOGLOBIN 14.9 GM/dL (10.7-15.3); MCH 32.5 pg (25.7-33.7); MCHC 33.5 g/dl (32.0-36.0); MEAN CELL VOLUME 96.9 fl (80-96); MEAN PLT VOLUME 9.1 fl (7.5-11.1); PLATELET COUNT 219 10^3/uL (134-434); RBC 4.59 M/mm3 (3.60-5.2); RDW 13.6 % (11.6-15.6); WHITE BLOOD COUNT 11.1 K/mm3 (4.0-10.0)
[2022-10-11 11:07] LABS: ALBUMIN 3.5 g/dl (3.4-5.0); CALCIUM 10.3 mg/dL (8.5-10.1); MAGNESIUM 2.4 mg/dL (1.8-2.4)
[2022-10-11 11:08] LABS: BLOOD UREA NITROGEN 27.6 mg/dL (7-18)
[2022-10-11 11:10] LABS: CREATININE 0.3 mg/dL (0.55-1.3)
[2022-10-11 11:11] LABS: PHOSPHOROUS 4.5 mg/dL (2.5-4.9)
[2022-10-11 11:12] LABS: BILIRUBIN,TOTAL 0.5 mg/dL (0.2-1); TOT PROT 7.9 g/dl (6.4-8.2)
[2022-10-11 16:39] LABS: VENOUS BASE EXCESS 14.9 mmol/L (-2-2); VENOUS O2 SATURATION 89.7 % (70-80); VENOUS PH 7.377 (7.310-7.410)
[2022-10-11] MEDS: ACETAMINOPHEN 650 MG/20.3 ML ORAL SOLUTION (CUPS) GT PRN (18:46)
[2022-10-11] MEDS: POLYETHYLENE GLYCOL (HEALTHYLAX) 3350 17 GM PACKET PO SCH (21:34)
[2022-10-11] MEDS: MULTIVIT-MINERALS ORAL LIQUID GT SCH (21:34)
[2022-10-12] MEDS: AMINO ACIDS/PROTEIN HYDROLYS 30 ML LIQUID.PKT PO SCH (08:08)
[2022-10-12 08:16] LABS: HEMATOCRIT 39.3 % (32.4-45.2); MCH 31.9 pg (25.7-33.7); MEAN CELL VOLUME 96.8 fl (80-96); MEAN PLT VOLUME 9.4 fl (7.5-11.1); PLATELET COUNT 186 10^3/uL (134-434); RBC 4.06 M/mm3 (3.60-5.2); RDW 13.6 % (11.6-15.6); WHITE BLOOD COUNT 9.6 K/mm3 (4.0-10.0)
[2022-10-12] MEDS: AMOX TR/POTASSIUM CLAVULANATE 250 MG/5 ML BOTTLE GT SCH (08:23)
[2022-10-12 08:28] LABS: CALCIUM 9.3 mg/dL (8.5-10.1)
[2022-10-12 08:29] LABS: MAGNESIUM 2.2 mg/dL (1.8-2.4)
[2022-10-12 08:31] LABS: PHOSPHOROUS 2.8 mg/dL (2.5-4.9)
[2022-10-12 08:32] LABS: CREATININE 0.2 mg/dL (0.55-1.3)
[2022-10-12 08:33] LABS: BILIRUBIN,TOTAL 0.7 mg/dL (0.2-1); TOT PROT 7.1 g/dl (6.4-8.2)
[2022-10-12] MEDS: ACETAMINOPHEN 650 MG/20.3 ML ORAL SOLUTION (CUPS) GT PRN (08:36)
[2022-10-12] MEDS: POLYETHYLENE GLYCOL (HEALTHYLAX) 3350 17 GM PACKET PO SCH ×2 (11:24→21:31)
[2022-10-12] MEDS: SENNOSIDES 8.8 MG/5 ML SYRUP GT SCH ×2 (11:24→21:32)
[2022-10-12] MEDS: POTASSIUM CITRATE/CITRIC ACID 2 MEQ/ML ML GT SCH (11:25)
[2022-10-12] MEDS: ENOXAPARIN NA (PORCINE) 40 MG/0.4 ML DISP.SYRIN SQ SCH (11:39)
[2022-10-12] MEDS: MULTIVIT-MINERALS ORAL LIQUID GT SCH (21:32)
[2022-10-13 09:04] LABS: HEMATOCRIT 39.1 % (32.4-45.2); HEMOGLOBIN 12.9 GM/dL (10.7-15.3); MCH 31.8 pg (25.7-33.7); MEAN CELL VOLUME 96.5 fl (80-96); MEAN PLT VOLUME 9.3 fl (7.5-11.1); PLATELET COUNT 217 10^3/uL (134-434); RBC 4.06 M/mm3 (3.60-5.2); RDW 13.3 % (11.6-15.6); WHITE BLOOD COUNT 9.4 K/mm3 (4.0-10.0)
[2022-10-13] MEDS: POLYETHYLENE GLYCOL (HEALTHYLAX) 3350 17 GM PACKET GT SCH ×2 (09:18→23:23)
[2022-10-13] MEDS: AMINO ACIDS/PROTEIN HYDROLYS 30 ML LIQUID.PKT GT SCH (09:18)
[2022-10-13] MEDS: ENOXAPARIN NA (PORCINE) 40 MG/0.4 ML DISP.SYRIN SQ SCH (09:18)
[2022-10-13] MEDS: POTASSIUM CITRATE/CITRIC ACID 2 MEQ/ML ML GT SCH (09:18)
[2022-10-13] MEDS: SENNOSIDES 8.8 MG/5 ML SYRUP GT SCH ×2 (09:19→23:24)
[2022-10-13 09:27] LABS: CHLORIDE 100 mmol/L (98-107); SODIUM 147 mmol/L (136-145)
[2022-10-13 09:52] LABS: CREATININE 0.2 mg/dL (0.55-1.3)
[2022-10-13 09:53] LABS: BLOOD UREA NITROGEN 27.6 mg/dL (7-18)
[2022-10-13 09:54] LABS: GLUCOSE,RANDOM 114 mg/dL (74-106)
[2022-10-13 10:40] LABS: ANION GAP 2 MMOL/L (8-16); CO2 > 45 mmol/L (21-32)
[2022-10-13 12:48] LABS: ARTERIAL BLD GAS O2 SATURATION 94.1 % (95-98); ARTERIAL BLOOD GAS BASE EXCESS 16.1 mmol/L (-2-2); ARTERIAL BLOOD GAS PO2 73.1 mmHg (80-100); ARTERIAL BLOOD GAS pH 7.402 (7.350-7.450)
[2022-10-13 13:04] LABS: ALLENS TEST POSITIVE
[2022-10-13 13:06] LABS: VENT MODE S/T; VENT RATE 18
[2022-10-13] MEDS: SCOPOLAMINE HYDROBROMIDE 1 PATCH PATCH.TD72 TD SCH (19:10)
[2022-10-14] MEDS: ACETAMINOPHEN 650 MG/20.3 ML ORAL SOLUTION (CUPS) GT PRN ×3 (01:22→20:13)
[2022-10-14] MEDS: AMINO ACIDS/PROTEIN HYDROLYS 30 ML LIQUID.PKT GT SCH (08:33)
[2022-10-14] MEDS: POTASSIUM CITRATE/CITRIC ACID 2 MEQ/ML ML GT SCH (09:20)
[2022-10-14] MEDS: POLYETHYLENE GLYCOL (HEALTHYLAX) 3350 17 GM PACKET GT SCH ×2 (09:21→22:13)
[2022-10-14] MEDS: ENOXAPARIN NA (PORCINE) 40 MG/0.4 ML DISP.SYRIN SQ SCH (09:21)
[2022-10-14] MEDS: SENNOSIDES 8.8 MG/5 ML SYRUP GT SCH ×2 (09:21→22:06)
[2022-10-14 10:48] LABS: HEMOGLOBIN 13.7 GM/dL (10.7-15.3); MCH 31.4 pg (25.7-33.7); MCHC 32.5 g/dl (32.0-36.0); MEAN CELL VOLUME 96.7 fl (80-96); MEAN PLT VOLUME 9.4 fl (7.5-11.1); PLATELET COUNT 272 10^3/uL (134-434); RBC 4.35 M/mm3 (3.60-5.2); RDW 13.3 % (11.6-15.6); WHITE BLOOD COUNT 9.7 K/mm3 (4.0-10.0)
[2022-10-14 11:26] LABS: CALCIUM 9.8 mg/dL (8.5-10.1)
[2022-10-14 11:27] LABS: BLOOD UREA NITROGEN 37.6 mg/dL (7-18)
[2022-10-14 11:30] LABS: CREATININE 0.3 mg/dL (0.55-1.3)
[2022-10-14] MEDS ORDERED: DEXTROSE 5%-0.45% SALINE 1,000 ML IV SCH (16:00)
[2022-10-14] MEDS ORDERED: SODIUM CHLORIDE 0.45% 1,000 ML IV SCH (16:00)
[2022-10-14] MEDS ORDERED: PIPERACILLIN/TAZOB 3.375 GM 3.375 GM in DEXTROSE 5%-WATER - 50 ML IVPB SCH (18:00)
[2022-10-14 18:08] LABS: CHLORIDE 103 mmol/L (98-107); SODIUM 149 mmol/L (136-145)
[2022-10-14 18:10] LABS: CALCIUM 9.6 mg/dL (8.5-10.1); GLUCOSE,RANDOM 148 mg/dL (74-106)
[2022-10-14 18:10] LABS: EPI CELLS >36 /uL (0-25.1); HYALINE CASTS 3 /uL (0-3.1); URINE APPEARANCE CLEAR; URINE BACTERIA 4 /uL (0-1359); URINE BILIRUBIN NEGATIVE (NEGATIVE); URINE COLOR YELLOW; URINE GLUCOSE (UA) NEGATIVE (NEGATIVE); URINE KETONE TRACE (NEGATIVE); URINE LEUK ESTERASE 2+ (NEGATIVE); URINE NITRITE NEGATIVE (NEGATIVE); URINE PROTEIN 1+ (NEGATIVE); URINE WBC 353 /uL (0-25.8)
[2022-10-14 18:11] LABS: BLOOD UREA NITROGEN 38.4 mg/dL (7-18)
[2022-10-14 18:14] LABS: CREATININE 0.5 mg/dL (0.55-1.3)
[2022-10-14 18:21] LABS: ANION GAP 2 MMOL/L (8-16); CO2 > 45 mmol/L (21-32)
[2022-10-14 19:30] LABS: URINE RBC 90.4 /uL (0-23.9); YEAST FEW (NEGATIVE)
[2022-10-14] MEDS: MULTIVIT-MINERALS ORAL LIQUID GT SCH ×2 (22:05)
[2022-10-15] MEDS: PIPERACILLIN/TAZOB 3.375 GM 3.375 GM in DEXTROSE 5%-WATER - 50 ML IVPB SCH ×3 (01:23→17:48)
[2022-10-15 01:27] LABS: BLOOD UREA NITROGEN 31.9 mg/dL (7-18); CALCIUM 8.8 mg/dL (8.5-10.1)
[2022-10-15 01:31] LABS: CREATININE 0.3 mg/dL (0.55-1.3)
[2022-10-15] MEDS ORDERED: POTASSIUM CHLORIDE ORAL LIQUID 20 MEQ/15 ML PEG ONE (06:45)
[2022-10-15] MEDS: AMINO ACIDS/PROTEIN HYDROLYS 30 ML LIQUID.PKT GT SCH (08:50)
[2022-10-15] MEDS: POLYETHYLENE GLYCOL (HEALTHYLAX) 3350 17 GM PACKET GT SCH ×2 (09:49→21:47)
[2022-10-15] MEDS: POTASSIUM CHLORIDE ORAL LIQUID 20 MEQ/15 ML GT SCH ×2 (09:49→21:47)
[2022-10-15] MEDS: ENOXAPARIN NA (PORCINE) 40 MG/0.4 ML DISP.SYRIN SQ SCH (09:54)
[2022-10-15] MEDS: SENNOSIDES 8.8 MG/5 ML SYRUP GT SCH ×2 (09:55→21:48)
[2022-10-15] MEDS ORDERED: POTASSIUM CHLORIDE ORAL LIQUID 20 MEQ/15 ML PO SCH (10:00)
[2022-10-15] MEDS: MULTIVIT-MINERALS ORAL LIQUID GT SCH (21:48)
[2022-10-15 22:00] VITALS: RESP 18
[2022-10-16] MEDS ORDERED: PIPERACILLIN/TAZOBACTAM 3.375 GM VIAL IVPB ONE (02:28)
[2022-10-16] MEDS: PIPERACILLIN/TAZOB 3.375 GM 3.375 GM in DEXTROSE 5%-WATER - 50 ML IVPB SCH ×3 (02:33→17:53)
[2022-10-16] MEDS: POTASSIUM CHLORIDE ORAL LIQUID 20 MEQ/15 ML GT SCH (10:44)
[2022-10-16] MEDS: ENOXAPARIN NA (PORCINE) 40 MG/0.4 ML DISP.SYRIN SQ SCH (10:45)
[2022-10-16] MEDS: SENNOSIDES 8.8 MG/5 ML SYRUP GT SCH ×2 (10:45→21:43)
[2022-10-16] MEDS: POLYETHYLENE GLYCOL (HEALTHYLAX) 3350 17 GM PACKET GT SCH ×2 (10:45→21:43)
[2022-10-16] MEDS: AMINO ACIDS/PROTEIN HYDROLYS 30 ML LIQUID.PKT GT SCH (10:45)
[2022-10-16 12:32] LABS: BASO % 0.2 % (0-2.0); EOS % 0.3 % (0-4.5); HEMATOCRIT 36.2 % (32.4-45.2); HEMOGLOBIN 11.8 GM/dL (10.7-15.3); LYMPH % 6.8 % (8-40); MCH 31.4 pg (25.7-33.7); MCHC 32.6 g/dl (32.0-36.0); MEAN CELL VOLUME 96.3 fl (80-96); MEAN PLT VOLUME 9.3 fl (7.5-11.1); MONO % 4.6 % (3.8-10.2); NEUT % 88.1 % (42.8-82.8); PLATELET COUNT 249 10^3/uL (134-434); RBC 3.76 M/mm3 (3.60-5.2); RDW 13.3 % (11.6-15.6); WHITE BLOOD COUNT 15.1 K/mm3 (4.0-10.0)
[2022-10-16 13:06] LABS: BLOOD UREA NITROGEN 15.8 mg/dL (7-18); CALCIUM 8.6 mg/dL (8.5-10.1)
[2022-10-16 13:09] LABS: CREATININE 0.3 mg/dL (0.55-1.3)
[2022-10-16] MEDS: SCOPOLAMINE HYDROBROMIDE 1 PATCH PATCH.TD72 TD SCH (17:54)
[2022-10-16] MEDS: MULTIVIT-MINERALS ORAL LIQUID GT SCH (21:42)
[2022-10-17] MEDS: PIPERACILLIN/TAZOB 3.375 GM 3.375 GM in DEXTROSE 5%-WATER - 50 ML IVPB SCH ×2 (01:23→10:52)
[2022-10-17] MEDS: POLYETHYLENE GLYCOL (HEALTHYLAX) 3350 17 GM PACKET GT SCH ×2 (10:52→22:00)
[2022-10-17] MEDS: AMINO ACIDS/PROTEIN HYDROLYS 30 ML LIQUID.PKT GT SCH (10:52)
[2022-10-17] MEDS: ENOXAPARIN NA (PORCINE) 40 MG/0.4 ML DISP.SYRIN SQ SCH (10:53)
[2022-10-17 11:24] LABS: HEMATOCRIT 35.5 % (32.4-45.2); HEMOGLOBIN 11.7 GM/dL (10.7-15.3); MCH 31.4 pg (25.7-33.7); MEAN PLT VOLUME 9.6 fl (7.5-11.1); PLATELET COUNT 224 10^3/uL (134-434); RBC 3.73 M/mm3 (3.60-5.2); RDW 12.9 % (11.6-15.6); WHITE BLOOD COUNT 12.2 K/mm3 (4.0-10.0)
[2022-10-17 11:50] LABS: CHLORIDE 94 mmol/L (98-107); SODIUM 138 mmol/L (136-145)
[2022-10-17 11:51] LABS: ANION GAP 4 MMOL/L (8-16); BLOOD UREA NITROGEN 8.2 mg/dL (7-18); CALCIUM 8.7 mg/dL (8.5-10.1); CO2 40 mmol/L (21-32)
[2022-10-17 11:52] LABS: GLUCOSE,RANDOM 81 mg/dL (74-106); MAGNESIUM 2.3 mg/dL (1.8-2.4)
[2022-10-17 11:55] LABS: CREATININE < 0.2 mg/dL (0.55-1.3)
[2022-10-17] MEDS ORDERED: NAPH,MB-DB/K PH,MBDB POWDER PACKET GT ONE (15:36)
[2022-10-17] MEDS: SENNOSIDES 8.8 MG/5 ML SYRUP GT SCH ×2 (16:09→22:00)
[2022-10-17] MEDS: AMOX TR/POTASSIUM CLAVULANATE 250 MG/5 ML BOTTLE GT SCH (17:55)
[2022-10-17] MEDS: MULTIVIT-MINERALS ORAL LIQUID GT SCH (22:00)
[2022-10-18] MEDS: AMOX TR/POTASSIUM CLAVULANATE 250 MG/5 ML BOTTLE GT SCH ×2 (09:52→17:15)
[2022-10-18] MEDS: AMINO ACIDS/PROTEIN HYDROLYS 30 ML LIQUID.PKT GT SCH (09:55)
[2022-10-18] MEDS: ENOXAPARIN NA (PORCINE) 40 MG/0.4 ML DISP.SYRIN SQ SCH (09:57)
[2022-10-18] MEDS: SENNOSIDES 8.8 MG/5 ML SYRUP GT SCH (09:57)
[2022-10-18] MEDS: POLYETHYLENE GLYCOL (HEALTHYLAX) 3350 17 GM PACKET GT SCH (09:58)
[2022-10-18 10:11] LABS: HEMATOCRIT 36.7 % (32.4-45.2); HEMOGLOBIN 12.2 GM/dL (10.7-15.3); MCH 31.4 pg (25.7-33.7); MCHC 33.1 g/dl (32.0-36.0); MEAN CELL VOLUME 94.8 fl (80-96); MEAN PLT VOLUME 9.7 fl (7.5-11.1); PLATELET COUNT 271 10^3/uL (134-434); RBC 3.87 M/mm3 (3.60-5.2); RDW 12.8 % (11.6-15.6); WHITE BLOOD COUNT 11.9 K/mm3 (4.0-10.0)
[2022-10-18 10:42] LABS: BLOOD UREA NITROGEN 5.7 mg/dL (7-18); MAGNESIUM 2.3 mg/dL (1.8-2.4)
[2022-10-18 10:45] LABS: PHOSPHOROUS 2.6 mg/dL (2.5-4.9)
[2022-10-18 10:46] LABS: CREATININE 0.2 mg/dL (0.55-1.3)
[2022-10-18 15:11] VITALS: BP 122/77; TEMP 98.1
[2022-10-18 16:16] VITALS: PULSE 110
== END 2022-10-18 17:55 | DRG 189 ==
LOC: JER 11:21 → JERBED 17:01 → JICU 10-05 02:53 → J6S 10-05 14:26 → UNDODISIN 10-07 21:45
PROVIDERS: ADMIT Internal Medicine; ATTEND Internal Medicine
PROC: 0D20XUZ Change Feeding Device in Upper Intestinal Tract, External Approach (ICD-10-PCS; principal; 2022-10-09)
DX: J96.21 Acute and chronic respiratory failure with hypoxia (principal); J69.0 Pneumonitis due to inhalation of food and vomit; G82.50 Quadriplegia, unspecified; G91.9 Hydrocephalus, unspecified; E87.29 Other acidosis; E87.0 Hyperosmolality and hypernatremia; J96.22 Acute and chronic respiratory failure with hypercapnia; E11.9 Type 2 diabetes mellitus without complications; G40.909 Epilepsy, unspecified, not intractable, without status epilepticus; D72.829 Elevated white blood cell count, unspecified; M41.9 Scoliosis, unspecified; F79 Unspecified intellectual disabilities; I50.9 Heart failure, unspecified; K94.29 Other complications of gastrostomy; Y83.9 Surgical procedure, unspecified as the cause of abnormal reaction of the patient, or of later complication, without mention of misadventure at the time of the procedure
CPT/HCPCS: 0241U-QW; 36415; 36600; 71045-TC-FY; 71250-TC; 74018-TC-FY; 80048; 80053; 81003; 82550; 82553; 82803; 82962; 83605; 83735; 84100; 84484; 85025; 85027; 85610; 85730; 87040; 87086; 93005; 93010; 94640; 94660; 94761; 99291; C9803-CS; U0003; U0005

== ENCOUNTER 2022-10-20 11:44 | Inpatient (IN) | payer OTHER ==
[2022-10-20] MEDS ORDERED: DEXAMETHASONE SOD PHOSPHATE 10 MG/1 ML VIAL IVPUSH ONE (12:21)
[2022-10-20] MEDS ORDERED: DEXAMETHASONE SOD PHOSPHATE 10 MG/1 ML VIAL ONE (13:16)
[2022-10-20] MEDS ORDERED: ALBUTEROL SO4 2.5/IPRATROPIUM 0.5 INH SOL 3 ML VIAL.NEB. NEB ONE ×2 (13:16→14:15)
[2022-10-20] MEDS ORDERED: LORazepam 2 MG/ML SDV VIAL IM ONE (13:30)
[2022-10-20] MEDS: ALBUTEROL SO4 2.5/IPRATROPIUM 0.5 INH SOL 3 ML VIAL.NEB. NEB SCH (14:27)
[2022-10-20 14:43] LABS: EPI CELLS 5 /uL (0-25.1); HYALINE CASTS 1 /uL (0-3.1); PH,URINE 6.5 (5.0-8.0); URINE APPEARANCE CLOUDY; URINE BACTERIA 60 /uL (0-1359); URINE BILIRUBIN NEGATIVE (NEGATIVE); URINE COLOR YELLOW; URINE GLUCOSE (UA) NEGATIVE (NEGATIVE); URINE KETONE NEGATIVE (NEGATIVE); URINE LEUK ESTERASE 2+ (NEGATIVE); URINE NITRITE NEGATIVE (NEGATIVE); URINE PROTEIN 2+ (NEGATIVE); URINE UROBILINOGEN 0.2 mg/dL (0.2-1.0); URINE WBC 1246 /uL (0-25.8)
[2022-10-20 14:46] LABS: BASO % 0.1 % (0-2.0); HEMATOCRIT 33.1 % (32.4-45.2); HEMOGLOBIN 10.8 GM/dL (10.7-15.3); LYMPH % 9.3 % (8-40); MCH 31.2 pg (25.7-33.7); MCHC 32.6 g/dl (32.0-36.0); MEAN CELL VOLUME 95.5 fl (80-96); MEAN PLT VOLUME 8.3 fl (7.5-11.1); MONO % 6.7 % (3.8-10.2); NEUT % 82.9 % (42.8-82.8); PLATELET COUNT 342 10^3/uL (134-434); RBC 3.46 M/mm3 (3.60-5.2); RDW 12.9 % (11.6-15.6); WHITE BLOOD COUNT 12.8 K/mm3 (4.0-10.0)
[2022-10-20 14:47] LABS: VENOUS BASE EXCESS 16.8 mmol/L (-2-2); VENOUS O2 SATURATION 83.7 % (70-80); VENOUS PH 7.33 (7.310-7.410)
[2022-10-20 14:49] LABS: VENOUS PCO2 90.8 mmHg (38-52)
[2022-10-20 14:53] LABS: INR 1.12 (0.83-1.09)
[2022-10-20 14:56] LABS: ACTIVATED PTT 36.7 SECONDS (25.2-36.5)
[2022-10-20 15:01] LABS: URINE RBC 87.4 /uL (0-23.9)
[2022-10-20 15:10] LABS: CHLORIDE 85 mmol/L (98-107); SODIUM 138 mmol/L (136-145)
[2022-10-20] MEDS ORDERED: VANCOMYCIN 1 GM in D5W (PRE-DOCKED) 1,000 MG/250 ML IVPB ONE (15:11)
[2022-10-20 15:12] LABS: CALCIUM 9.2 mg/dL (8.5-10.1)
[2022-10-20 15:13] LABS: ALBUMIN 2.7 g/dl (3.4-5.0); BLOOD UREA NITROGEN 7.8 mg/dL (7-18); GLUCOSE,RANDOM 130 mg/dL (74-106); MAGNESIUM 2.3 mg/dL (1.8-2.4)
[2022-10-20 15:16] LABS: CREATININE 0.2 mg/dL (0.55-1.3); SGOT/AST 42 U/L (15-37)
[2022-10-20 15:17] LABS: BILIRUBIN,TOTAL 0.2 mg/dL (0.2-1)
[2022-10-20 15:18] LABS: TOT PROT 6.8 g/dl (6.4-8.2)
[2022-10-20 15:19] LABS: ALK PHOS 105 U/L (45-117)
[2022-10-20 15:21] LABS: SGPT/ALT 54 U/L (13-61)
[2022-10-20 15:22] LABS: ANION GAP 8 MMOL/L (8-16); CO2 > 45 mmol/L (21-32)
[2022-10-20] MEDS ORDERED: VANCOMYCIN/WATER FOR INJ (PEG) 1,000 MG/200 ML BAG IVPB ONE (15:40)
[2022-10-20] MEDS ORDERED: PIPERACILLIN/TAZOB 4.5 GM 4.5 GM in DEXTROSE 5%-WATER 100 ML IVPB ONE (17:50)
[2022-10-20] MEDS ORDERED: PIPERACILLIN/TAZOB 4.5 GM 4.5 GM/100 ML BAG IVPB ONE (18:22)
[2022-10-20] MEDS ORDERED: levETIRAcetam 500 MG/5 ML INJECTION VIAL IVPB ONE ×2 (19:23→19:30)
[2022-10-20 19:58] LABS: VENOUS BASE EXCESS 17.5 mmol/L (-2-2); VENOUS PH 7.335 (7.310-7.410)
[2022-10-20 20:01] LABS: VENOUS PCO2 90.9 mmHg (38-52)
[2022-10-20] MEDS ORDERED: ONDANSETRON 4 MG/2 ML VIAL IVPUSH PRN (23:18)
[2022-10-20] MEDS: INSULIN SLIDING SCALE (NOVOLOG) 1 VIAL SQ SCH (23:38)
[2022-10-21] MEDS: MEROPENEM 1 GM in DEXTROSE 5%-WATER 100 ML IVPB SCH ×3 (04:56→18:01)
[2022-10-21] MEDS: INSULIN SLIDING SCALE (NOVOLOG) 1 VIAL SQ SCH ×3 (05:06→17:55)
[2022-10-21] MEDS ORDERED: ALBUTEROL SO4 2.5/IPRATROPIUM 0.5 INH SOL 3 ML VIAL.NEB. NEB PRN (06:14)
[2022-10-21] MEDS ORDERED: diphenhydrAMINE HCL 12.5 MG/5 ML UNIT-DOSE CUPS GT PRN (06:15)
[2022-10-21] MEDS ORDERED: guaiFENesin/D-METHORPHAN HB 10 ML UNIT-DOSE CUPS GT PRN (06:15)
[2022-10-21] MEDS ORDERED: ZINC OXIDE 20% TOPICAL OINTMENT 30 GM TUBE TP PRN (06:20)
[2022-10-21] MEDS ORDERED: SODIUM CHLORIDE NASAL SPRAY 44 ML BOTTLE NS PRN (06:22)
[2022-10-21 08:50] LABS: BASO % 0.1 % (0-2.0); EOS % 0.3 % (0-4.5); HEMATOCRIT 32.3 % (32.4-45.2); HEMOGLOBIN 10.6 GM/dL (10.7-15.3); LYMPH % 10.5 % (8-40); MCH 30.9 pg (25.7-33.7); MCHC 32.9 g/dl (32.0-36.0); MEAN CELL VOLUME 94.1 fl (80-96); MEAN PLT VOLUME 8.3 fl (7.5-11.1); MONO % 9.8 % (3.8-10.2); NEUT % 79.3 % (42.8-82.8); PLATELET COUNT 341 10^3/uL (134-434); RBC 3.43 M/mm3 (3.60-5.2)
[2022-10-21 09:12] LABS: CALCIUM 8.9 mg/dL (8.5-10.1); CHLORIDE 91 mmol/L (98-107); SODIUM 143 mmol/L (136-145)
[2022-10-21 09:13] LABS: BLOOD UREA NITROGEN 6.8 mg/dL (7-18); GLUCOSE,RANDOM 88 mg/dL (74-106)
[2022-10-21 09:16] LABS: CREATININE < 0.2 mg/dL (0.55-1.3)
[2022-10-21 09:25] LABS: ANION GAP 7 MMOL/L (8-16); CO2 > 45 mmol/L (21-32)
[2022-10-21] MEDS: ENOXAPARIN NA (PORCINE) 40 MG/0.4 ML DISP.SYRIN SQ SCH (11:03)
[2022-10-21] MEDS: ALBUTEROL SO4 2.5/IPRATROPIUM 0.5 INH SOL 3 ML VIAL.NEB. NEB SCH ×3 (15:16→20:40)
[2022-10-22] MEDS: INSULIN SLIDING SCALE (NOVOLOG) 1 VIAL SQ SCH ×4 (01:03→17:39)
[2022-10-22] MEDS: MEROPENEM 1 GM in DEXTROSE 5%-WATER 100 ML IVPB SCH ×2 (01:56→10:04)
[2022-10-22] MEDS: ALBUTEROL SO4 2.5/IPRATROPIUM 0.5 INH SOL 3 ML VIAL.NEB. NEB SCH ×4 (08:11→20:30)
[2022-10-22 09:46] LABS: BASO % 0.6 % (0-2.0); HEMATOCRIT 35.7 % (32.4-45.2); HEMOGLOBIN 11.3 GM/dL (10.7-15.3); LYMPH % 8.5 % (8-40); MCHC 31.8 g/dl (32.0-36.0); MEAN CELL VOLUME 94.4 fl (80-96); MEAN PLT VOLUME 8.3 fl (7.5-11.1); MONO % 9.6 % (3.8-10.2); NEUT % 79.3 % (42.8-82.8); PLATELET COUNT 408 10^3/uL (134-434); RBC 3.78 M/mm3 (3.60-5.2); RDW 13.5 % (11.6-15.6); WHITE BLOOD COUNT 12.3 K/mm3 (4.0-10.0)
[2022-10-22 09:50] LABS: CHLORIDE 88 mmol/L (98-107); SODIUM 142 mmol/L (136-145)
[2022-10-22 09:52] LABS: GLUCOSE,RANDOM 133 mg/dL (74-106)
[2022-10-22 09:53] LABS: BLOOD UREA NITROGEN 12.6 mg/dL (7-18)
[2022-10-22 09:55] LABS: CREATININE 0.2 mg/dL (0.55-1.3)
[2022-10-22] MEDS ORDERED: SCOPOLAMINE HYDROBROMIDE 1 PATCH PATCH.TD72 TD SCH (10:00)
[2022-10-22] MEDS: ENOXAPARIN NA (PORCINE) 40 MG/0.4 ML DISP.SYRIN SQ SCH (10:05)
[2022-10-22 10:12] VITALS: BMI 25.9
[2022-10-22 10:21] LABS: ANION GAP 8 MMOL/L (8-16); CO2 > 45 mmol/L (21-32)
[2022-10-22] MEDS ORDERED: AMOX TR/POTASSIUM CLAVULANATE 600 MG/5 ML GT SCH (17:30)
[2022-10-22] MEDS: AMOX TR/POT CLAV 875MG/125MG TABLETS (FP) PO SCH (17:39)
[2022-10-23] MEDS: INSULIN SLIDING SCALE (NOVOLOG) 1 VIAL SQ SCH ×5 (01:30→23:06)
[2022-10-23] MEDS ORDERED: morphine CARPU-JECT 2 MG/1 ML DISP.SYRIN IM ONE (06:22)
[2022-10-23] MEDS: ALBUTEROL SO4 2.5/IPRATROPIUM 0.5 INH SOL 3 ML VIAL.NEB. NEB SCH ×4 (08:04→20:15)
[2022-10-23] MEDS: AMOX TR/POT CLAV 875MG/125MG TABLETS (FP) PO SCH ×2 (08:40→17:38)
[2022-10-23] MEDS: AMINO ACIDS/PROTEIN HYDROLYS 30 ML LIQUID.PKT PO SCH (08:40)
[2022-10-23] MEDS: ENOXAPARIN NA (PORCINE) 40 MG/0.4 ML DISP.SYRIN SQ SCH (09:17)
[2022-10-23 09:51] LABS: HEMATOCRIT 34.4 % (32.4-45.2); HEMOGLOBIN 11.3 GM/dL (10.7-15.3); MCH 30.9 pg (25.7-33.7); MCHC 32.9 g/dl (32.0-36.0); MEAN CELL VOLUME 94.1 fl (80-96); PLATELET COUNT 406 10^3/uL (134-434); RBC 3.65 M/mm3 (3.60-5.2); RDW 13.7 % (11.6-15.6); WHITE BLOOD COUNT 13.3 K/mm3 (4.0-10.0)
[2022-10-23 10:40] LABS: BLOOD UREA NITROGEN 12.9 mg/dL (7-18); CALCIUM 9.1 mg/dL (8.5-10.1)
[2022-10-23 10:45] LABS: CREATININE 0.2 mg/dL (0.55-1.3)
[2022-10-24] MEDS ORDERED: ALBUTEROL SO4 0.083% IH SOL 2.5 MG/3 ML VIAL.NEB. NEB ONE (01:56)
[2022-10-24 02:09] LABS: VENOUS BASE EXCESS 11.9 mmol/L (-2-2); VENOUS O2 SATURATION 44.5 % (70-80); VENOUS PH 7.275 (7.310-7.410)
[2022-10-24 02:11] LABS: VENOUS PCO2 97.9 mmHg (38-52)
[2022-10-24] MEDS: INSULIN SLIDING SCALE (NOVOLOG) 1 VIAL SQ SCH ×4 (05:34→22:35)
[2022-10-24] MEDS: ALBUTEROL SO4 2.5/IPRATROPIUM 0.5 INH SOL 3 ML VIAL.NEB. NEB SCH ×4 (08:44→20:42)
[2022-10-24] MEDS: AMOX TR/POT CLAV 875MG/125MG TABLETS (FP) PO SCH ×2 (10:34→17:15)
[2022-10-24] MEDS: ENOXAPARIN NA (PORCINE) 40 MG/0.4 ML DISP.SYRIN SQ SCH (10:34)
[2022-10-24] MEDS: AMINO ACIDS/PROTEIN HYDROLYS 30 ML LIQUID.PKT PO SCH (10:34)
[2022-10-24 20:25] VITALS: BP 140/94; TEMP 97.5
[2022-10-24 23:28] VITALS: RESP 30
[2022-10-25 04:07] VITALS: PULSE 80
[2022-10-25] MEDS: INSULIN SLIDING SCALE (NOVOLOG) 1 VIAL SQ SCH (05:45)
== END 2022-10-25 08:24 | disposition expired | DRG 193 ==
LOC: JER 11:44 → JERBED 21:20 → J5S 10-21 01:54
PROVIDERS: ADMIT Internal Medicine; ATTEND Internal Medicine
DX: J18.9 Pneumonia, unspecified organism (principal); J96.21 Acute and chronic respiratory failure with hypoxia; J96.22 Acute and chronic respiratory failure with hypercapnia; N39.0 Urinary tract infection, site not specified; F72 Severe intellectual disabilities; G40.909 Epilepsy, unspecified, not intractable, without status epilepticus; Z93.1 Gastrostomy status; G80.8 Other cerebral palsy; Z74.01 Bed confinement status; I50.9 Heart failure, unspecified; Z95.0 Presence of cardiac pacemaker; E11.9 Type 2 diabetes mellitus without complications; Z98.2 Presence of cerebrospinal fluid drainage device; M41.9 Scoliosis, unspecified; Z99.81 Dependence on supplemental oxygen; R13.10 Dysphagia, unspecified
CPT/HCPCS: 0241U-QW; 36415; 70450-TC; 71045-TC-FY; 71275-TC; 80048; 80053; 81003; 82550; 82803; 82962; 83605; 83735; 84484; 85025; 85027; 85379; 85610; 85730; 86850; 86900; 86901; 87040; 87070; 87077; 87086; 87186; 87205; 93005; 93010; 94640; 94660; 99285-25; J1100; Q9967